=== PATIENT | female | born 1950 | race American Indian/Alaskan Native ===

== ENCOUNTER 2017-06-20 19:18 | Emergency (ER) | payer MEDICARE ==
[2017-06-20 22:00] LABS: Basophils % (Auto) 0.1 % (0.0-1.8); Eosinophils % (Auto) 0.2 % (0.0-4.3); Hematocrit 33.4 % (30.3-42.9); Hemoglobin 10.6 gm/dl (10.1-14.3); Lymphocytes % (Auto) 9.5 % (13.4-35.0); Mean Corpuscular HGB Conc 32 % (30-34); Mean Corpuscular Volume 77 fl (79-97); Monocytes # (Auto) 0.3 K/mm3 (0.0-0.8); Monocytes % (Auto) 2.7 % (0.0-7.3); Platelet Count 446 K/mm3 (140-440); Red Blood Count 4.34 M/mm3 (3.65-5.03)
[2017-06-20 22:02] LABS: Mean Corpuscular Hemoglobin 24 pg (28-32); Red Cell Distribution Width 21.2 % (13.2-15.2)
[2017-06-20 22:07] LABS: Bacteria,Urine 1+ /HPF (Negative); Bilirubin,Urine NEG (Negative); Blood,Urine NEG (Negative); Color,Urine Straw (Yellow); Mucus,Urine FEW /HPF; Nitrite,Urine NEG (Negative); Protein,Urine <15 mg/dL mg/dL (Negative); Urobilinogen,Urine < 2.0 mg/dL (<2.0); WBC,Urine < 1.0 /HPF (0.0-6.0)
[2017-06-20] MEDS ORDERED: MORPHINE IV ONE (22:11)
[2017-06-20 22:12] LABS: Creatine Kinase MB 2.8 ng/mL (0.0-4.0)
[2017-06-20 22:14] LABS: Alanine Aminotransferase 13 units/L (7-56); BUN/Creatinine Ratio 33; Blood Urea Nitrogen 13 mg/dL (7-17); Hemolysis Index 8
--- NOTE | 2017-06-20 22:16 | Emergency Department Report ---
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 THE INCONTINENCE IS NOT NEW AND SHE HAD THE SAME INCONTINENCE OF URINE WHEN SHE HAD THE STROKE. SHE WAS PUT ON MEDICAL OXYBUTYNIN A YEAR AGO BY DR ALMANZA FOR INCONTINENCE. SHE IS CRYING TODAY BECAUSE SHE HAS TO WEAR DIAPERS AGAIN. PT FELL 6 DAYS AGO WHEN SHE WAS ATTEMPTING TO STAND AND STRENGTHEN HER RIGHT LEG THAT SHE CANNOT MOVE. AFTER EACH FALL, SHE GOT UP AND TRIED REPEATEDLY TO STAND AND MOVE THAT PARALYZED RIGHT LEG MD Complaint: hip injury (BILATERAL), thigh injury (LEFT), fall -: Sudden, days(s) (6) Injury: Hip: Right, Left, Thigh: Left Type of Injury: other (COLLAPSE TO THE FLOOR) Worsens With: weight bearing, movement Context: fall, direct blow Associated Symptoms: unable to bear weight - Related Data Home Medications Medication Instructions Recorded Confirmed Last Taken Metformin HCl [Fortamet ER] 1,000 mg PO DAILY 02/10/16 02/10/16 1 Day Ago ~02/09/16 1000 Pregabalin [Lyrica] 50 mg PO DAILY 02/10/16 02/10/16 1 Day Ago ~02/09/16 50 amLODIPine [Norvasc] 5 mg PO DAILY 02/10/16 02/10/16 1 Day Ago ~02/09/16 5 predniSONE [Deltasone] 5 mg PO DAILY 02/10/16 02/10/16 1 Day Ago ~02/09/16 5 traMADol [Ultram] 50 mg PO TID 02/10/16 02/10/16 1 Day Ago ~02/09/16 50 Previous Rx's Medication Instructions Recorded Last Taken Type Clopidogrel [Plavix] 75 mg PO QDAY #30 tablet 02/11/16 Unknown Rx Oxycodone HCl/Acetaminophen 7.5 mg PO Q6HR PRN #14 tablet 06/21/17 Unknown Rx [Percocet 7.5/325 mg] Allergies Allergy/AdvReac Type Severity Reaction Status Date / Time Penicillins Allergy Rash Verified 11/25/14 10:02 Sulfa (Sulfonamide Allergy Rash Verified 11/25/14 10:02 Antibiotics) ED Review of Systems ROS: Stated complaint: LOWER ABD PAIN Other details as noted in HPI Constitutional: denies: chills, fever Eyes: denies: eye pain, eye discharge, vision change ENT: denies: ear pain, throat pain Respiratory: denies: cough, shortness of breath, wheezing Cardiovascular: denies: chest pain, palpitations Endocrine: no symptoms reported Gastrointestinal: denies: abdominal pain, nausea, diarrhea Genitourinary: denies: urgency, dysuria, discharge Musculoskeletal: myalgia. denies: joint swelling Skin: denies: rash, lesions Neurological: denies: headache, weakness, paresthesias Psychiatric: denies: anxiety, depression Hematological/Lymphatic: denies: easy bleeding, easy bruising ED Past Medical Hx - Past Medical History Previous Medical History?: Yes Hx Hypertension: Yes Hx CVA: Yes (right side deficit,URINARY INCONTINENCE) Hx Diabetes: Yes Hx Arthritis: Yes - Surgical History Past Surgical History?: Yes Additional Surgical History: back surgery - Social History Smoking Status: Never Smoker Substance Use Type: None - Medications Home Medications: Home Medications Medication Instructions Recorded Confirmed Last Taken Type Metformin HCl [Fortamet ER] 1,000 mg PO DAILY 02/10/16 02/10/16 1 Day Ago History ~02/09/16 1000 Pregabalin [Lyrica] 50 mg PO DAILY 02/10/16 02/10/16 1 Day Ago History ~02/09/16 50 amLODIPine [Norvasc] 5 mg PO DAILY 02/10/16 02/10/16 1 Day Ago History ~02/09/16 5 predniSONE [Deltasone] 5 mg PO DAILY 02/10/16 02/10/16 1 Day Ago History ~02/09/16 5 traMADol [Ultram] 50 mg PO TID 02/10/16 02/10/16 1 Day Ago History ~02/09/16 50 Clopidogrel [Plavix] 75 mg PO QDAY #30 tablet 02/11/16 Unknown Rx Oxycodone HCl/Acetaminophen 7.5 mg PO Q6HR PRN #14 tablet 06/21/17 Unknown Rx [Percocet 7.5/325 mg] ED Physical Exam - General Limitations: Physical Limitation General appearance: alert, in distress (FROM PAIN) - Head Head exam: Present: atraumatic, normocephalic - Eye Eye exam: Present: normal appearance, EOMI - ENT ENT exam: Present: mucous membranes moist - Neck Neck exam: Present: normal inspection, full ROM - Respiratory Respiratory exam: Present: normal lung sounds bilaterally. Absent: respiratory distress, wheezes, rales - Cardiovascular Cardiovascular Exam: Present: regular rate, normal rhythm. Absent: systolic murmur, diastolic murmur, rubs, gallop - GI/Abdominal GI/Abdominal exam: Present: soft, distended, tenderness, normal bowel sounds, other (INNER THIGH,HIP) - Rectal Rectal exam: Present: deferred - Extremities Exam Extremities exam: Present: normal inspection, other (RIGHT LEG PARALYZED, LEFT MOBILE , TENDER POSTERIOR LEFT THIGH, BILATER HIP IN INGUINAL CREASE TENDERNESS) - Back Exam Back exam: Present: normal inspection - Neurological Exam Neurological exam: Present: alert, oriented X3, CN II-XII intact - Psychiatric Psychiatric exam: Present: normal affect, normal mood - Skin Skin exam: Present: warm, dry, intact, normal color. Absent: rash ED Course Vital Signs 06/20/17 06/20/17 06/20/17 20:24 20:25 20:26 Temperature Pulse Rate 98 H 77 102 H Respiratory 17 16 16 Rate Blood Pressure O2 Sat by Pulse 100 99 Oximetry 06/20/17 06/20/17 06/20/17 20:27 20:28 20:30 Temperature Pulse Rate 107 H 108 H 113 H Respiratory 16 13 21 Rate Blood Pressure 140/79 140/79 140/79 O2 Sat by Pulse 100 100 100 Oximetry 06/20/17 06/20/17 06/20/17 20:31 20:32 20:34 Temperature 98.9 F Pulse Rate 103 H 116 H 110 H Respiratory 17 14 14 Rate Blood Pressure 147/70 147/70 147/70 O2 Sat by Pulse 99 100 100 Oximetry 06/20/17 06/20/17 06/20/17 20:36 20:38 20:40 Temperature Pulse Rate 106 H 95 H 101 H Respiratory 19 18 17 Rate Blood Pressure 147/70 147/70 147/70 O2 Sat by Pulse 99 99 99 Oximetry 06/20/17 06/20/17 06/20/17 20:42 20:44 20:45 Temperature Pulse Rate 101 H 96 H 103 H Respiratory 19 19 19 Rate Blood Pressure 147/70 147/70 133/66 O2 Sat by Pulse 98 99 99 Oximetry 06/20/17 06/20/17 06/20/17 20:46 20:48 20:50 Temperature Pulse Rate 107 H 99 H 94 H Respiratory 18 18 16 Rate Blood Pressure 133/66 133/66 133/66 O2 Sat by Pulse 98 99 99 Oximetry 06/20/17 06/20/17 06/20/17 20:52 20:54 20:56 Temperature Pulse Rate 94 H 96 H 95 H Respiratory 16 15 19 Rate Blood Pressure 133/66 133/66 133/66 O2 Sat by Pulse 99 98 99 Oximetry 06/20/17 06/20/17 06/20/17 20:58 21:00 21:02 Temperature Pulse Rate 93 H 100 H 116 H Respiratory 18 16 21 Rate Blood Pressure 133/66 133/66 142/72 O2 Sat by Pulse 100 99 100 Oximetry 06/20/17 06/20/17 06/20/17 21:04 21:08 21:10 Temperature Pulse Rate 111 H 107 H 105 H Respiratory 25 H 17 17 Rate Blood Pressure 142/72 142/72 142/72 O2 Sat by Pulse 99 Oximetry 06/20/17 06/20/17 06/20/17 21:12 21:14 21:15 Temperature Pulse Rate 94 H 89 97 H Respiratory 14 21 19 Rate Blood Pressure 142/72 142/72 142/70 O2 Sat by Pulse 99 99 99 Oximetry - Reevaluation(s) Reevaluation #1: 06/21/17 02:LANA NEUROLOGIST DR CHAVEZ WHO THINK THIS IS PROBABLY OVERFLOW INCONTINENCE AND NOT NEW SINCE SHE HAS HAD THIS IN THE PAST. DR MIRYAM SCHWARTZ AND FEEL THIS IS NOT CAUDA EQUINA SYNDROME BECUSE PT STILL MOVES THE LEFT LEG BEFORE HER FALL 6 DAYS AGO AND NOW NEW NUMBNESS AND RUTH E INCONTINENCE IN THE PAST ED Lower Extremity MDM - Lab Data Result diagrams: 06/20/17 21:36 06/20/17 21:36 - Medical Decision Making pt reexamined and right leg paralyzed since the cva 2001 and incontinence with diaper use in the past. pt on oxybutinin for incntinence of urine. thisis not new. i - Differential Diagnosis CAUDA EQUINA SYNDROME, OVERACTIVE BLADDER, ARTHRITIS Critical care attestation.: If time is entered above; I have spent that time in minutes in the direct care of this critically ill patient, excluding procedure time. ED Disposition Clinical Impression: Overactive bladder Acute hip pain Qualifiers: Laterality: unspecified laterality Qualified Code(s): M25.559 - Pain in unspecified hip Leg pain Qualifiers: Laterality: left Qualified Code(s): M79.605 - Pain in left leg Osteoarthritis of lumbar spine Qualifiers: Spinal osteoarthritis complication: unspecified spinal osteoarthritis Qualified Code(s): M47.816 - Spondylosis without myelopathy or radiculopathy, lumbar region Disposition: TO HOME OR SELFCARE Is pt being admited?: No Does the pt Need Aspirin: No Condition: Stable Instructions: Abdominal Pain (ED), Arthralgia (ED), Osteoarthritis (ED), Overactive Bladder (GEN) Additional Instructions: please see a urologist about your bladder or your doctor in 2 days. return to the er for any worsening symptoms. Prescriptions: Oxycodone HCl/Acetaminophen [Percocet 7.5/325 mg] 7.5 mg PO Q6HR PRN #14 tablet PRN Reason: Pain Referrals: RACHELLE BATES MD [Primary Care Provider] - 3-5 Days Time of Disposition: 02:25
--- NOTE | 2017-06-20 23:24 | XRay Report ---
FINAL REPORT PROCEDURE: Right and left femurs. TECHNIQUE: AP and lateral views of each femur. HISTORY: Leg pain post fall. COMPARISON: No prior studies are available for comparison. FINDINGS: Right femur: The bones appear intact without fracture. The hip joint appears satisfactory. There is mild narrowing of the knee joint. There is small osteophyte formation. The soft tissues are unremarkable. There is some chondrocalcinosis in the knee joint. Left femur: The bones appear intact without fracture. There is mild narrowing of the knee joint. There is osteophyte formation arising laterally from the distal femur and proximal tibia. There is chondrocalcinosis present. The soft tissues are unremarkable. IMPRESSION: No evidence of fracture. Mild osteoarthritis bilaterally as described.
--- NOTE | 2017-06-20 23:43 | Cat Scan Report ---
FINAL REPORT PROCEDURE: CT pelvis with contrast. TECHNIQUE: Computerized axial tomography of the pelvis was performed following the IV injection of iodinated nonionic contrast. HISTORY: Pelvic pain. COMPARISON: No prior studies are available for comparison. TECHNICAL QUALITY: Satisfactory. FINDINGS: The unopacified gastrointestinal tract appears normal as far as visualized. The vascular structures enhance normally. The bladder is unremarkable. The uterus has been removed. The regional skeleton is unremarkable. There is posterior fusion hardware visible at L5. The patient appears to have had laminectomies done at L4 and L5. IMPRESSION: No significant abnormality.
--- NOTE | 2017-06-20 23:57 | Cat Scan Report ---
FINAL REPORT PROCEDURE: CT lumbar spine with contrast. TECHNIQUE: Computerized axial tomography of the lumbar spine was performed from T12 to the sacrum following the IV injection of iodinated nonionic contrast. HISTORY: Back pain. COMPARISON: No prior studies are available for comparison. FINDINGS: The lumbar vertebrae have normal height. There are no fractures identified. There is severe disc space narrowing at T12-L1. There is mild retrolisthesis measured at approximately 3.8 millimeters. There is severe narrowing of the neural foramina bilaterally. There is severe disc space narrowing at L1-2. There is mild retrolisthesis measured at approximately 3.0 millimeters. There is moderate osteoarthritis involving the facet joints. There is a small osteophyte or bone fragment in the left side of the spinal canal. This is best seen on the sagittal images. There is moderate narrowing of the neural foramina bilaterally. There is an exaggerated lordosis at the L2-3 level. The disc space appears widened anteriorly. There is severe osteoarthritis involving the facet joints. There is a large osteophyte posteriorly that narrows the spinal canal. This is also best seen on the sagittal images. There is severe narrowing of the right neural foramen. L3 through L5 are fused. There is posterior internal fixation hardware present. The disc spaces are fused. There is mild spondylolisthesis at L3-4 measured at approximately 1.8 millimeters. The patient has had bilateral laminectomies done at L4 and L5. There is severe osteoarthritis involving the facet joints at L4-5 and L5-S1. IMPRESSION: Previous surgery and multilevel degenerative disease as described.
[2017-06-21] MEDS ORDERED: MORPHINE IV ONE (00:36)
[2017-06-21 03:25] VITALS: BP 154/73
== END 2017-06-21 04:21 | disposition home or self-care (01) ==
LOC: ED 19:18
DX: M47.816 Spondylosis without myelopathy or radiculopathy, lumbar region (principal); M79.605 Pain in left leg; M25.559 Pain in unspecified hip; N32.81 Overactive bladder; I10 Essential (primary) hypertension; I63.9 Cerebral infarction, unspecified; E11.9 Type 2 diabetes mellitus without complications; Z88.0 Allergy status to penicillin; Z88.2 Allergy status to sulfonamides
CPT/HCPCS: 36415; 72132; 72193; 73552; 80053; 81001; 82550; 82553; 84484; 85025; 96374; 96376; 99285; J2270; Q9967

== ENCOUNTER 2018-09-03 18:23 | Emergency (ER) | payer MEDICARE, OTHER ==
[2018-09-03 18:49] VITALS: BP 152/61
--- NOTE | 2018-09-03 18:51 | Emergency Department Report ---
Chief Complaint: Pain General Stated Complaint: PAIN ALL OVER/EXTREME Time Seen by Provider: 09/03/18 18:46 - HPI History of Present Illness: generalized body aches having dysuria Nausea, one episode vomiting no fall, injury, trauma no fever pt walks with walker. hx of DM, HTN, hx of chronic pain MSE screening note: Focused history and physical exam performed. Due to findings the following was ordered: ED Disposition for MSE Condition: Stable
--- NOTE | 2018-09-03 21:08 | Emergency Department Report ---
ED General Adult HPI - General Chief complaint: Pain General Stated complaint: PAIN ALL OVER/EXTREME Time Seen by Provider: 09/03/18 18:46 Source: patient Mode of arrival: Ambulatory Limitations: No Limitations - History of Present Illness Initial comments: This is a 68-year-old -[place] female who presents with pain to left shoulder, left hip, abdominal pain, and dysuria for 3 days. Patient reports pain is chronic pain. Has flared over the past 3 days. Patient states she used to see pain management but released after pain was under control. Patient has a walker at bedside to aid with ambulation. She also complains of some pelvic pain that is worse with urination and dysuria. Patient states she is currently taking ibuprofen 800 mg with no improvement of symptoms. She denies urinary frequency, urgency, vaginal discharge, vaginal bleeding, back pain, nausea, vomiting, and chest pain. Onset/Timin -: days(s) Location: abdomen, upper extremity (left shoulder), lower extremity ( and left knee) Radiation: non-radiation Severity scale (0 -10): 6 Quality: burning, aching Consistency: intermittent Improves with: none Worsens with: movement Associated Symptoms: other (dysuria). denies: confusion, chest pain, cough, diaphoresis, fever/chills, headaches, loss of appetite, malaise, nausea/vomiting, rash, seizure, shortness of breath, syncope, weakness Treatments Prior to Arrival: NSAID - Related Data Home Medications Medication Instructions Recorded Confirmed Last Taken Metformin HCl [Fortamet ER] 1,000 mg PO DAILY 02/10/16 02/10/16 1 Day Ago ~02/09/16 1000 Pregabalin [Lyrica] 50 mg PO DAILY 02/10/16 02/10/16 1 Day Ago ~02/09/16 50 amLODIPine [Norvasc] 5 mg PO DAILY 02/10/16 02/10/16 1 Day Ago ~02/09/16 5 predniSONE [Deltasone] 5 mg PO DAILY 02/10/16 02/10/16 1 Day Ago ~02/09/16 5 traMADol [Ultram] 50 mg PO TID 02/10/16 02/10/16 1 Day Ago ~02/09/16 50 Previous Rx's Medication Instructions Recorded Last Taken Type Clopidogrel [Plavix] 75 mg PO QDAY #30 tablet 02/11/16 Unknown Rx Oxycodone HCl/Acetaminophen 7.5 mg PO Q6HR PRN #14 tablet 06/21/17 Unknown Rx [Percocet 7.5/325 mg] Diclofenac Sodium 50 mg PO TID PRN #15 tablet. 09/03/18 Unknown Rx Nitrofurantoin Macrocrysta(Nf) 100 mg PO BID #10 capsule 09/03/18 Unknown Rx [Macrodantin CAP] traMADol [Ultram 50 MG tab] 50 mg PO Q6HR PRN #12 tablet 09/03/18 Unknown Rx Allergies Allergy/AdvReac Type Severity Reaction Status Date / Time Penicillins Allergy Rash Verified 11/25/14 10:02 Sulfa (Sulfonamide Allergy Rash Verified 11/25/14 10:02 Antibiotics) ED Review of Systems ROS: Stated complaint: PAIN ALL OVER/EXTREME Other details as noted in HPI Constitutional: denies: chills, fever Respiratory: denies: cough, shortness of breath, wheezing Cardiovascular: denies: chest pain, palpitations Gastrointestinal: abdominal pain. denies: nausea, diarrhea Genitourinary: dysuria. denies: urgency, discharge Musculoskeletal: arthralgia (left shoulder and left knee pain). denies: back pain, joint swelling Skin: denies: rash, lesions Neurological: denies: headache, weakness, paresthesias Psychiatric: denies: anxiety, depression ED Past Medical Hx - Past Medical History Hx Hypertension: Yes Hx CVA: Yes (right side deficit,URINARY INCONTINENCE) Hx Diabetes: Yes Hx Arthritis: Yes - Surgical History Past Surgical History?: Yes Additional Surgical History: back surgery - Social History Smoking Status: Never Smoker - Medications Home Medications: Home Medications Medication Instructions Recorded Confirmed Last Taken Type Metformin HCl [Fortamet ER] 1,000 mg PO DAILY 02/10/16 02/10/16 1 Day Ago History ~02/09/16 1000 Pregabalin [Lyrica] 50 mg PO DAILY 02/10/16 02/10/16 1 Day Ago History ~02/09/16 50 amLODIPine [Norvasc] 5 mg PO DAILY 02/10/16 02/10/16 1 Day Ago History ~02/09/16 5 predniSONE [Deltasone] 5 mg PO DAILY 02/10/16 02/10/16 1 Day Ago History ~02/09/16 5 traMADol [Ultram] 50 mg PO TID 02/10/16 02/10/16 1 Day Ago History ~02/09/16 50 Clopidogrel [Plavix] 75 mg PO QDAY #30 tablet 02/11/16 Unknown Rx Oxycodone HCl/Acetaminophen 7.5 mg PO Q6HR PRN #14 tablet 06/21/17 Unknown Rx [Percocet 7.5/325 mg] Diclofenac Sodium 50 mg PO TID PRN #15 tablet. 09/03/18 Unknown Rx Nitrofurantoin Macrocrysta(Nf) 100 mg PO BID #10 capsule 09/03/18 Unknown Rx [Macrodantin CAP] traMADol [Ultram 50 MG tab] 50 mg PO Q6HR PRN #12 tablet 09/03/18 Unknown Rx ED Physical Exam - General Limitations: No Limitations General appearance: alert, in no apparent distress - Respiratory Respiratory exam: Present: normal lung sounds bilaterally. Absent: respiratory distress - Cardiovascular Cardiovascular Exam: Present: regular rate, normal rhythm. Absent: systolic murmur, diastolic murmur, rubs, gallop - GI/Abdominal GI/Abdominal exam: Present: soft, normal bowel sounds - Expanded Upper Extremity Exam Left Shoulder Exam: Present: normal inspection, full ROM (painful range of motion), crepidus. Absent: tenderness, swelling, abrasion, laceration, ecchymosis, defo rmity, dislocation, erythema, tenderness over AC joint Upper Arm exam: Present: normal inspection, full ROM Elbow exam: Present: normal inspection, full ROM Forearm Wrist exam: Present: normal inspection, full ROM Hand Wrist exam: Present: normal inspection, full ROM Neuro motor exam: Present: wrist extension intact, thumb opposition intact, thumb IP flexion intact, thumb adduction intact, fingers 2-5 abduction intact Neurosensory exam: Present: radial nerve intact, ulnar nerve intact, median nerve intact Vascular: Present: normal capillary refill, radial pulse (+2) - Expanded Lower Extremity Exam Left Hip exam: Present: full ROM (painful range of motion). Absent: tenderness, swelling, abrasion, laceration, ecchymosis, deformity, crepidus, dislocation, erythema, external rotation, internal rotation, shortening, pelvic stability Upper Leg exam: Present: normal inspection, full ROM Knee exam: Present: normal inspection, full ROM Lower Leg exam: Present: normal inspection, full ROM Ankle exam: Present: normal inspection, full ROM Foot/Toe exam: Present: normal inspection, full ROM Neuro vascular tendon exam: Present: no vascular compromise Gait: Positive: observed and limited by pain - Back Exam Back exam: Present: normal inspection - Neurological Exam Neurological exam: Present: alert, oriented X3 - Psychiatric Psychiatric exam: Present: normal affect, normal mood ED Course Vital Signs 09/03/18 18:47 Temperature 98.2 F Pulse Rate 72 Respiratory 18 Rate Blood Pressure 152/61 O2 Sat by Pulse 100 Oximetry ED Medical Decision Making - Lab Data Lab Results 09/03/18 Range/Units Unknown Urine Color Yellow (Yellow) Urine Turbidity Slightly-cloudy (Clear) Urine pH 5.0 (5.0-7.0) Ur Specific [place] 1.014 (1.003-1.030) Urine Protein 30 mg/dl (Negative) mg/dL Urine Glucose (UA) Neg (Negative) mg/dL Urine Ketones Neg (Negative) mg/dL Urine Blood Sm (Negative) Urine Nitrite Neg (Negative) Urine Bilirubin Neg (Negative) Urine Urobilinogen < 2.0 (<2.0) mg/dL Ur Leukocyte Esterase Mod (Negative) Urine WBC (Auto) 19.0 H (0.0-6.0) /HPF Urine RBC (Auto) 13.0 (0.0-6.0) /HPF U Epithel Cells (Auto) 3.0 (0-13.0) /HPF Urine Mucus 1+ /HPF - EKG Data -: No EKG Interpreted by Me (EKG interpreted by attending) EKG shows normal: sinus rhythm Rate: normal - Medical Decision Making Patient was examined by me. Vitals are normal and patient is in no acute distress. History of osteoarthritis, diabetes, and hypertension. Obtained a urinalysis and EKG. Urinalysis positive for: Acute cystitis. Patient has acute on chronic pain. Patient informed of results. Start nitrofurantoin, diclofenac, and tramadol. Plan discussed with patient to discharge home and treat outpatient. She agrees with ER plan. Patient discharged home in stable condition. Follow up with PCP in 2-3 days. Critical care attestation.: If time is entered above; I have spent that time in minutes in the direct care of this critically ill patient, excluding procedure time. ED Disposition Clinical Impression: Dysuria, Pelvic pain in female Acute cystitis Qualifiers: Hematuria presence: without hematuria Qualified Code(s): N30.00 - Acute cystitis without hematuria Osteoarthritis Qualifiers: Osteoarthritis location: multiple joints Osteoarthritis type: primary Qualified Code(s): M15.0 - Primary generalized (osteo)arthritis Disposition: TO HOME OR SELFCARE Is pt being admited?: No Does the pt Need Aspirin: No Condition: Stable Instructions: Osteoarthritis (ED), Self-Care Measures with a Chronic Disease (ED), Urinary Tract Infection in Women (ED) Additional Instructions: Increase fluid intake to 1L to 2L daily. Complete full course of antibiotics as prescribed. Avoid drinking alcohol while taking antibiotics and for 24 hours after completion. Follow up with primary care provider in 2-3 days. Prescriptions: Diclofenac Sodium 50 mg PO TID PRN #15 tablet. PRN Reason: Pain , Severe (7-10) Nitrofurantoin Macrocrysta(Nf) [Macrodantin CAP] 100 mg PO BID #10 capsule traMADol [Ultram 50 MG tab] 50 mg PO Q6HR PRN #12 tablet PRN Reason: Pain Referrals: RAMANA ALMANZA JR, MD [Primary Care Provider] - 3-5 Days MEL WITT MD [Staff Physician] - 3-5 Days Time of Disposition: 23:46
[2018-09-03] MEDS ORDERED: TORADOL IM ONE (21:58)
[2018-09-03 22:29] LABS: Bilirubin,Urine NEG (Negative); Blood,Urine SM (Negative); Color,Urine Yellow (Yellow); Mucus,Urine 1+ /HPF; Urobilinogen,Urine < 2.0 mg/dL (<2.0)
== END 2018-09-03 23:59 | disposition home or self-care (01) ==
LOC: ED 18:23
DX: N30.00 Acute cystitis without hematuria (principal); M15.0 Primary generalized (osteo)arthritis; I10 Essential (primary) hypertension; E11.9 Type 2 diabetes mellitus without complications; M19.90 Unspecified osteoarthritis, unspecified site; Z86.73 Personal history of transient ischemic attack (TIA), and cerebral infarction without residual deficits; Z88.2 Allergy status to sulfonamides; Z88.0 Allergy status to penicillin
CPT/HCPCS: 81001; 93005; 93010; 96372; 99283; J1885

== ENCOUNTER 2018-11-23 17:09 | Emergency (ER) | payer MEDICARE ==
[2018-11-23] MEDS ORDERED: NACL 0.9% 500 ML 500 ML IV ONE (17:30)
[2018-11-23 18:03] LABS: Basophils # (Auto) 0.2 K/mm3 (0.0-0.1); Basophils % (Auto) 1.5 % (0.0-1.8); Eosinophils # (Auto) 0.7 K/mm3 (0.0-0.4); Eosinophils % (Auto) 6.7 % (0.0-4.3); Hematocrit 34.1 % (30.3-42.9); Hemoglobin 10.6 gm/dl (10.1-14.3); Lymphocytes % (Auto) 19.3 % (13.4-35.0); Mean Corpuscular HGB Conc 31 % (30-34); Mean Corpuscular Volume 84 fl (79-97); Monocytes # (Auto) 0.5 K/mm3 (0.0-0.8); Platelet Count 362 K/mm3 (140-440); Red Blood Count 4.07 M/mm3 (3.65-5.03); Red Cell Distribution Width 16.9 % (13.2-15.2)
[2018-11-23 18:06] LABS: INR 1.03 (0.87-1.13)
[2018-11-23 18:18] LABS: Alanine Aminotransferase 10 units/L (7-56); Albumin 3.1 g/dL (3.9-5); BUN/Creatinine Ratio 30; Blood Urea Nitrogen 9 mg/dL (7-17); Calcium 8.7 mg/dL (8.4-10.2); Hemolysis Index 61
[2018-11-23] MEDS ORDERED: VANCOMYCIN/NS 1 GM/250 ML 1 GM/250 ML BAG IV ONE (18:19)
[2018-11-23] MEDS ORDERED: TORADOL IV ONE (19:09)
[2018-11-23] MEDS ORDERED: VANCOMYCIN 1,500 MG in NACL 0.9% 500 ML 500 ML IV ONE (19:30)
--- NOTE | 2018-11-23 20:00 | XRay Report ---
PROCEDURE: XR CHEST 1V AP TECHNIQUE: Chest radiograph single view. HISTORY: possible Sepsis COMPARISONS: None . FINDINGS: Heart: Normal. Mediastinum/Vessels: Normal. Lungs/Pleural space: No infiltrate, effusion, or pneumothorax is seen. Bony thorax: No acute osseous abnormality. Life support devices: None. IMPRESSION: No radiographic evidence of acute cardiopulmonary abnormality. This document is electronically signed by Yajaira France MD., November 23 2018 08:58:48 PM ET
--- NOTE | 2018-11-23 20:21 | Emergency Department Report ---
HPI - General Chief Complaint: Wound/Laceration Time Seen by Provider: 11/23/18 17:34 - HPI HPI: 68-year-old female presents to the emergency department via EMS from home with complaint of some pain and drainage to some surgical wounds that she has as well as to the right heel. The patient says that these wounds stem from a previous admission to another hospital where she was admitted for pneumonia. She has a past medical history of arthritis, CVA, diabetes, hypertension, depression, high cholesterol. Patient denies any fever. Cortney lowry's daughter noticed some brownish drainage coming from her backside. Her primary care physician is Dr. Ramana Almanza. They say that they have been trying to get a home healthcare wound nurse but this has not yet been set up by the primary care provider. She has not taken anything for her symptoms prior to arrival today. ED Past Medical Hx - Past Medical History Previous Medical History?: Yes Hx Hypertension: Yes Hx CVA: Yes (right side deficit,URINARY INCONTINENCE) Hx Diabetes: Yes Hx Arthritis: Yes Hx Psychiatric Treatment: Yes (depression) Additional medical history: high cholesterol - Surgical History Past Surgical History?: Yes Additional Surgical History: back surgery - Social History Smoking Status: Former Smoker Substance Use Type: None - Medications Home Medications: Home Medications Medication Instructions Recorded Confirmed Last Taken Type Metformin HCl [Fortamet ER] 1,000 mg PO DAILY 02/10/16 02/10/16 1 Day Ago History ~02/09/16 1000 Pregabalin [Lyrica] 50 mg PO DAILY 02/10/16 02/10/16 1 Day Ago History ~02/09/16 50 amLODIPine [Norvasc] 5 mg PO DAILY 02/10/16 02/10/16 1 Day Ago History ~02/09/16 5 predniSONE [Deltasone] 5 mg PO DAILY 02/10/16 02/10/16 1 Day Ago History ~02/09/16 5 traMADol [Ultram] 50 mg PO TID 02/10/16 02/10/16 1 Day Ago History ~02/09/16 50 Clopidogrel [Plavix] 75 mg PO QDAY #30 tablet 02/11/16 Unknown Rx Oxycodone HCl/Acetaminophen 7.5 mg PO Q6HR PRN #14 tablet 06/21/17 Unknown Rx [Percocet 7.5/325 mg] Diclofenac Sodium 50 mg PO TID PRN #15 tablet. 09/03/18 Unknown Rx Nitrofurantoin Macrocrysta(Nf) 100 mg PO BID #10 capsule 09/03/18 Unknown Rx [Macrodantin CAP] traMADol [Ultram 50 MG tab] 50 mg PO Q6HR PRN #12 tablet 09/03/18 Unknown Rx Clindamycin [Clindamycin CAP] 300 mg PO Q6H #28 capsule 11/23/18 Unknown Rx traMADol [Ultram 50 MG tab] 50 mg PO Q8H PRN #10 tablet 11/23/18 Unknown Rx ED Review of Systems ROS: Stated complaint: ULCERS Other details as noted in HPI Comment: All other systems reviewed and negative Constitutional: denies: chills, fever Eyes: denies: eye pain, vision change ENT: denies: ear pain, throat pain Respiratory: denies: cough, shortness of breath Cardiovascular: denies: chest pain, palpitations Gastrointestinal: denies: abdominal pain, vomiting Genitourinary: denies: dysuria, discharge Musculoskeletal: denies: back pain, arthralgia Skin: lesions. denies: pruritus Neurological: denies: headache, numbness Physical Exam - Physical Exam Vital Signs: Vital Signs 11/23/18 11/23/18 11/23/18 17:27 18:00 18:55 Temperature 98.9 F 98.7 F Pulse Rate 56 L Respiratory 14 Rate Blood Pressure 88/35 Blood Pressure 112/36 [Left] O2 Sat by Pulse 98 Oximetry 11/23/18 19:38 Temperature Pulse Rate Respiratory 20 Rate Blood Pressure Blood Pressure [Left] O2 Sat by Pulse Oximetry Physical Exam: GENERAL: The patient is well-developed well-nourished. HENT: Normocephalic. Atraumatic. Patient has moist mucous membranes. EYES: Extraocular motions are intact. Pupils equal reactive to light bilaterall y. NECK: Supple. Trachea is midline. CHEST/LUNGS: Clear to auscultation. There is no respiratory distress noted. HEART/CARDIOVASCULAR: Regular. There is no tachycardia. There is no murmur. ABDOMEN: Abdomen is soft, nontender. Patient has normal bowel sounds. There is no abdominal distention. SKIN: There is a stage II sacral decubitus ulcer. No current bleeding, weeping, drainage. No surrounding erythema. There is a stage II to 3 right heel pressure ulcer that also does not appear infected. NEURO: The patient is awake, alert, and oriented. The patient is cooperative. The patient has normal speech. MUSCULOSKELETAL: There is no tenderness or deformity. There is no evidence of acute injury. ED Course Vital Signs 11/23/18 11/23/18 11/23/18 17:27 18:00 18:55 Temperature 98.9 F 98.7 F Pulse Rate 56 L Respiratory 14 Rate Blood Pressure 88/35 Blood Pressure 112/36 [Left] O2 Sat by Pulse 98 Oximetry 11/23/18 19:38 Temperature Pulse Rate Respiratory 20 Rate Blood Pressure Blood Pressure [Left] O2 Sat by Pulse Oximetry ED Medical Decision Making - Lab Data Result diagrams: 11/23/18 17:43 11/23/18 17:43 - EKG Data -: EKG Interpreted by Me EKG shows normal: sinus rhythm, axis, intervals (prolonged IN interval), QRS c omplexes, ST-T waves Rate: bradycardia (52 bpm) - EKG Data When compared to previous EKG there are: previous EKG unavailable Interpretation: other (sinus thomas. low voltage. Prolonged IN interval) - Radiology Data Radiology results: image reviewed interpreted by me: Chest x-ray does not show any acute process. There are no pleural effusions, obvious pneumonia and there is no pneumothorax. - Medical Decision Making This patient presented with complaint of some pain and concern for drainage from her sacral decubitus ulcer and from her right heel where there is another pressure ulcer. At first the patient was considered a code sepsis, mostly because she had some borderline hypotension. However she received only 500 mL of IV fluid during her ED course and her blood pressure prior to discharge was systolic 130. I took a look at the areas of ulceration and she does appear to have stage II sacral tenderness ulcer and another one to the right heel there is no current erythema, bleeding, drainage. I do not feel that there was any imaging necessary to these areas of ulceration. It is not significantly tender to palpation but she says it nugent. The patient's vital signs are stable throughout her ED course including being afebrile. Patient's labs were mostly unremarkable including no leukocytosis, no lactic acidosis, but she did have a urinary tract infection. The patient will be placed on clindamycin for both her UTI and empirically for her ulcerations. The patient has been given a referral for the wound care clinic and says that they are working on getting some home health care wound assistance through the primary care physician, Dr. Almanza. As per their request, they have also been given some other referrals for new primary care providers in the area. The patient was given some Toradol for her discomfort and upon reevaluation she is feeling improved. They've been instructed to return to the emergency department if there is any change in her status including any development of fever, worsening or unbearable pain, visible purulent drainage, swelling, erythema, or if any acute distress. Both the patient and her daughter verbalized understanding and agreed to the plan. - Differential Diagnosis sepsis, cellulitis, decubitus ulcer, UTI Critical Care Time: No Critical care attestation.: If time is entered above; I have spent that time in minutes in the direct care of this critically ill patient, excluding procedure time. ED Disposition Clinical Impression: Sacral pain Sacral decubitus ulcer Qualifiers: Pressure injury stage: unspecified pressure injury stage Qualified Code(s): L89.159 - Pressure ulcer of sacral region, unspecified stage Ulcer of heel Qualifiers: Laterality: right Non-pressure ulcer stage: unspecified non-pressure ulcer stage Qualified Code(s): L97.419 - Non-pressure chronic ulcer of right heel and midfoot with unspecified severity Disposition: DC-01 TO HOME OR SELFCARE Is pt being admited?: No Condition: Stable Instructions: How to Prevent Pressure Ulcers (ED), Acute Wound Care (ED), Chronic Wound Care (ED), Pressure Ulcer (ED) Additional Instructions: Please follow-up with your primary care physician but, as requested, I am also giving you a referral for some local primary care physicians. I am also giving you a referral for the wound care clinic. Return to the emergency Department with any worsening of your symptoms including any development of fever, increased or unbearable pain, increased drainage, or any other signs or symptoms of infection. You have been prescribed a medication that is sedating and therefore should not be taken prior to driving, working, and responsible for children and in no way should be mixed with alcohol of any quantity. Prescriptions: Clindamycin [Clindamycin CAP] 300 mg PO Q6H #28 capsule traMADol [Ultram 50 MG tab] 50 mg PO Q8H PRN #10 tablet PRN Reason: Pain Referrals: RAMANA ALMANZA JR, MD [Staff Physician] - 3-5 Days LEANN EDWARDS MD [Staff Physician] - 3-5 Days TAJ ORTIZ MD [Staff Physician] - 3-5 Days [facility] [Outside] - 3-5 Days Time of Disposition: 20:23
[2018-11-23] MEDS ORDERED: NACL 0.9% 500 ML 500 ML IV SCH (21:00)
[2018-11-23 21:06] LABS: Bilirubin,Urine NEG (Negative); Blood,Urine NEG (Negative); Color,Urine Yellow (Yellow); Hyaline Casts,Urine 6 /LPF; Mucus,Urine FEW /HPF; Urobilinogen,Urine < 2.0 mg/dL (<2.0)
[2018-11-23] MEDS ORDERED: NACL 0.9% 1000 ML 1,000 ML ONE (21:17)
[2018-11-24 02:10] VITALS: BP 132/50
== END 2018-11-24 02:33 | disposition home or self-care (01) ==
LOC: ED 17:09
DX: L89.159 Pressure ulcer of sacral region, unspecified stage (principal); E11.621 Type 2 diabetes mellitus with foot ulcer; L97.419 Non-pressure chronic ulcer of right heel and midfoot with unspecified severity; I10 Essential (primary) hypertension; M19.90 Unspecified osteoarthritis, unspecified site; E78.00 Pure hypercholesterolemia, unspecified; Z87.891 Personal history of nicotine dependence; Z88.0 Allergy status to penicillin; Z88.2 Allergy status to sulfonamides
CPT/HCPCS: 36415; 71045; 80053; 81001; 82140; 82805; 82962; 85025; 85610; 87040; 87086; 93005; 93010; 96365; 96366; 96375; 99285; J1885; J3370; J7030; J7040

== ENCOUNTER 2019-03-17 11:34 | Emergency (ER) | payer MEDICARE ==
[2019-03-17 13:15] LABS: Bilirubin,Urine NEG (Negative); Blood,Urine LG (Negative); Color,Urine Yellow (Yellow); Mucus,Urine 2+ /HPF; Urobilinogen,Urine < 2.0 mg/dL (<2.0)
[2019-03-17 13:16] LABS: Protein,Urine >2000 mg dL mg/dL (Negative); RBC,Urine > 182.0 /HPF (0.0-6.0); WBC,Urine > 182.0 /HPF (0.0-6.0)
[2019-03-17 13:34] LABS: Hematocrit 31.9 % (30.3-42.9); Hemoglobin 10.2 gm/dl (10.1-14.3); Mean Corpuscular HGB Conc 32 % (30-34); Mean Corpuscular Volume 78 fl (79-97); Platelet Count 272 K/mm3 (140-440); Red Blood Count 4.09 M/mm3 (3.65-5.03); Red Cell Distribution Width 16.7 % (13.2-15.2)
[2019-03-17 14:01] LABS: Alanine Aminotransferase 5 units/L (7-56); Albumin 3.5 g/dL (3.9-5); BUN/Creatinine Ratio 27; Blood Urea Nitrogen 8 mg/dL (7-17); Calcium 8.9 mg/dL (8.4-10.2); Hemolysis Index 3
[2019-03-17] MEDS ORDERED: POTASSIUM CHLORIDE ER 20 MEQ TAB PO ONE (14:16)
[2019-03-17 15:23] LABS: Total Cells Counted 100
[2019-03-17 15:24] LABS: Hypochromasia 1+
[2019-03-17] MEDS ORDERED: MORPHINE 4 MG/1 ML INJ IM ONE (16:22)
[2019-03-17] MEDS ORDERED: ONDANSETRON 4 MG/2 ML INJ IM ONE (16:22)
--- NOTE | 2019-03-17 16:27 | Emergency Department Report ---
ED General Adult HPI - General Chief complaint: Skin Rash Stated complaint: POSS SHINGLES/MALAISE Time Seen by Provider: 03/17/19 16:18 Source: EMS Mode of arrival: Stretcher Limitations: Physical Limitation - History of Present Illness Initial comments: Patient is 68 years old female with history of CVA, hypertension, diabetes and depression. Patient put to the emergency room by her daughter for evaluation of the left thigh rash that started 3 days ago. Patient stated that started as vesicles and it was a painful. Patient also stated that she had history of nausea and vomiting 3 days ago but now she is better. Patient denied any fever or chills. No chest pain or shortness of breath or abdominal pain. She stated that she was treated with Levaquin for UTI 2 weeks ago. - Related Data Home Medications Medication Instructions Recorded Confirmed Last Taken Metformin HCl [Fortamet ER] 1,000 mg PO DAILY 02/10/16 02/10/16 1 Day Ago ~02/09/16 1000 Pregabalin [Lyrica] 50 mg PO DAILY 02/10/16 02/10/16 1 Day Ago ~02/09/16 50 amLODIPine [Norvasc] 5 mg PO DAILY 02/10/16 02/10/16 1 Day Ago ~02/09/16 5 predniSONE [Deltasone] 5 mg PO DAILY 02/10/16 02/10/16 1 Day Ago ~02/09/16 5 traMADol [Ultram] 50 mg PO TID 02/10/16 02/10/16 1 Day Ago ~02/09/16 50 Previous Rx's Medication Instructions Recorded Last Taken Type Clopidogrel [Plavix] 75 mg PO QDAY #30 tablet 02/11/16 Unknown Rx Oxycodone HCl/Acetaminophen 7.5 mg PO Q6HR PRN #14 tablet 06/21/17 Unknown Rx [Percocet 7.5/325 mg] Diclofenac Sodium 50 mg PO TID PRN #15 tablet. 09/03/18 Unknown Rx Nitrofurantoin Macrocrysta(Nf) 100 mg PO BID #10 capsule 09/03/18 Unknown Rx [Macrodantin CAP] traMADol [Ultram 50 MG tab] 50 mg PO Q6HR PRN #12 tablet 09/03/18 Unknown Rx Clindamycin [Clindamycin CAP] 300 mg PO Q6H #28 capsule 11/23/18 Unknown Rx traMADol [Ultram 50 MG tab] 50 mg PO Q8H PRN #10 tablet 11/23/18 Unknown Rx Allergies Allergy/AdvReac Type Severity Reaction Status Date / Time Penicillins Allergy Rash Verified 11/25/14 10:02 Sulfa (Sulfonamide Allergy Rash Verified 11/25/14 10:02 Antibiotics) ED Review of Systems ROS: Stated complaint: POSS SHINGLES/MALAISE Other details as noted in HPI Comment: All other systems reviewed and negative Constitutional: denies: chills, fever Respiratory: denies: cough, shortness of breath, SOB with exertion Cardiovascular: denies: chest pain, palpitations Gastrointestinal: denies: abdominal pain, nausea, vomiting, diarrhea, constipation, hematemesis, hematochezia Musculoskeletal: denies: back pain Skin: rash, lesions ED Past Medical Hx - Past Medical History Previous Medical History?: Yes Hx Hypertension: Yes Hx CVA: Yes (right side deficit,URINARY INCONTINENCE) Hx Diabetes: Yes Hx Arthritis: Yes Hx Psychiatric Treatment: Yes (depression) Additional medical history: high cholesterol - Surgical History Past Surgical History?: Yes Additional Surgical History: back surgery - Social History Smoking Status: Former Smoker Substance Use Type: None - Medications Home Medications: Home Medications Medication Instructions Recorded Confirmed Last Taken Type Metformin HCl [Fortamet ER] 1,000 mg PO DAILY 02/10/16 02/10/16 1 Day Ago History ~02/09/16 1000 Pregabalin [Lyrica] 50 mg PO DAILY 02/10/16 02/10/16 1 Day Ago History ~02/09/16 50 amLODIPine [Norvasc] 5 mg PO DAILY 02/10/16 02/10/16 1 Day Ago History ~02/09/16 5 predniSONE [Deltasone] 5 mg PO DAILY 02/10/16 02/10/16 1 Day Ago History ~02/09/16 5 traMADol [Ultram] 50 mg PO TID 02/10/16 02/10/16 1 Day Ago History ~02/09/16 50 Clopidogrel [Plavix] 75 mg PO QDAY #30 tablet 02/11/16 Unknown Rx Oxycodone HCl/Acetaminophen 7.5 mg PO Q6HR PRN #14 tablet 06/21/17 Unknown Rx [Percocet 7.5/325 mg] Diclofenac Sodium 50 mg PO TID PRN #15 tablet. 09/03/18 Unknown Rx Nitrofurantoin Macrocrysta(Nf) 100 mg PO BID #10 capsule 09/03/18 Unknown Rx [Macrodantin CAP] traMADol [Ultram 50 MG tab] 50 mg PO Q6HR PRN #12 tablet 09/03/18 Unknown Rx Clindamycin [Clindamycin CAP] 300 mg PO Q6H #28 capsule 11/23/18 Unknown Rx traMADol [Ultram 50 MG tab] 50 mg PO Q8H PRN #10 tablet 11/23/18 Unknown Rx ED Physical Exam - General Limitations: Physical Limitation General appearance: alert, in no apparent distress - Head Head exam: Present: atraumatic, normocephalic, normal inspection - Eye Eye exam: Present: normal appearance - ENT ENT exam: Present: normal exam, normal orophraynx, mucous membranes moist - Neck Neck exam: Present: normal inspection, full ROM. Absent: tenderness, meningismus, lymphadenopathy, thyromegaly - Respiratory Respiratory exam: Present: normal lung sounds bilaterally - Cardiovascular Cardiovascular Exam: Present: regular rate, normal rhythm, normal heart sounds - GI/Abdominal GI/Abdominal exam: Present: soft, normal bowel sounds. Absent: distended, tenderness, guarding, rebound, rigid, organomegaly, mass, bruit, pulsatile mass, hernia - Extremities Exam Extremities exam: Present: full ROM, normal capillary refill. Absent: pedal edema, calf tenderness - Neurological Exam Neurological exam: Present: alert, oriented X3 - Psychiatric Psychiatric exam: Present: normal mood - Skin Skin exam: Present: vesicles (lateral side of the left thigh.) ED Course Vital Signs 03/17/19 03/17/19 03/17/19 12:55 16:30 18:30 Temperature 97.7 F Pulse Rate 72 68 64 Respiratory 16 16 14 Rate Blood Pressure 113/52 132/52 134/66 [Right] O2 Sat by Pulse 100 100 96 Oximetry 03/17/19 19:15 Temperature 98.3 F Pulse Rate 65 Respiratory 18 Rate Blood Pressure 129/67 [Right] O2 Sat by Pulse 99 Oximetry ED Medical Decision Making - Lab Data Result diagrams: 03/17/19 13:10 03/17/19 18:35 - Medical Decision Making Patient is 68 years old female with history of CVA, hypertension, diabetes and depression. Patient put to the emergency room by her daughter for evaluation of the left thigh rash that started 3 days ago. Patient stated that started as vesicles and it was a painful. Patient also stated that she had history of nausea and vomiting 3 days ago but now she is better. Patient denied any fever or chills. No chest pain or shortness of breath or abdominal pain. She stated that she was treated with Levaquin for UTI 2 weeks ago. Patient found to have a left thigh shingle. Is positive for UTI. Patient received Macrobid in the ER. Hypokalemia is corrected with K-dur. Patient stated that she is feeling much better. Patient given a prescription for acyclovir, Macrobid and Ultram and advised to follow-up with her primary care physician in the next 2-3 days and to attend to the ER if symptoms are not improved. Critical care attestation.: If time is entered above; I have spent that time in minutes in the direct care of this critically ill patient, excluding procedure time. ED Disposition Clinical Impression: Shingles, UTI (urinary tract infection), Hypokalemia Disposition: TO HOME OR SELFCARE Is pt being admited?: No Condition: Stable Instructions: Urinary Tract Infection in Women (ED), Herpes Zoster (ED) Referrals: PRIMARY CARE, [Primary Care Provider] - 3-5 Days
[2019-03-17] MEDS ORDERED: HYDROcodone/ACETAMINOPHEN 5-325 MG TAB PO ONE (19:10)
[2019-03-17] MEDS ORDERED: NITROFURANTOIN MONOHYD/M-CRYST 100 MG CAP PO ONE (19:10)
[2019-03-17 22:09] VITALS: BP 135/68
== END 2019-03-17 22:11 | disposition home or self-care (01) ==
LOC: ED 11:34
DX: N39.0 Urinary tract infection, site not specified (principal); B02.9 Zoster without complications; E87.6 Hypokalemia; I10 Essential (primary) hypertension; E11.9 Type 2 diabetes mellitus without complications; M19.90 Unspecified osteoarthritis, unspecified site; F32.9 Major depressive disorder, single episode, unspecified; E78.00 Pure hypercholesterolemia, unspecified; Z86.73 Personal history of transient ischemic attack (TIA), and cerebral infarction without residual deficits; Z98.890 Other specified postprocedural states; Z87.891 Personal history of nicotine dependence; Z79.899 Other long term (current) drug therapy; Z88.0 Allergy status to penicillin; Z88.2 Allergy status to sulfonamides
CPT/HCPCS: 36415; 80053; 81001; 84132; 85007; 85025; 96372; 99284; J2270; J2405

== ENCOUNTER 2019-05-05 12:16 | Emergency (ER) | payer MEDICARE ==
[2019-05-05] MEDS ORDERED: MORPHINE 2 MG/1 ML INJ ONE (13:11)
[2019-05-05] MEDS ORDERED: SODIUM CHLORIDE 0.9% 500 ML 500 ML IV ONE (13:39)
[2019-05-05] MEDS ORDERED: HYDROcodone/ACETAMINOPHEN 5-325 MG TAB PO ONE (13:39)
[2019-05-05] MEDS ORDERED: SODIUM CHLORIDE 0.9% 1000 ML IV SOLN IV ONE (13:40)
--- NOTE | 2019-05-05 13:42 | Emergency Department Report ---
ED General Adult HPI - General Chief complaint: Wound/Laceration Stated complaint: BED SORE PAIN Time Seen by Provider: 05/05/19 13:33 Source: patient, EMS Mode of arrival: Stretcher Limitations: Physical Limitation - History of Present Illness Initial comments: 68 yo AA female comes to ER with chronic sacral wound. The family reports that home health RN stopped coming 2 weeks ago and that they need help with wound. Pt lives with daughter who has small kids and I suspect has limited support structure to assist with the pt. Pt had a CVA 1 year ago and has been essentially bed bound since. PCP Dr Welch Pt has appnt with neuro MD in May to determine "why she can not walk" Pt and family poor informants. The pt has no tachycardia, hypotension or fever. She has a/c UTI and recently finished antibiotics but did not follow up to be sure UTI went away. She denies fever, chills, or back pain. Pt is incontinent. -: Gradual, year(s) Location: buttocks Radiation: non-radiation Associated Symptoms: denies other symptoms - Related Data Home Medications Medication Instructions Recorded Confirmed Last Taken Metformin HCl [Fortamet ER] 1,000 mg PO DAILY 02/10/16 02/10/16 1 Day Ago ~02/09/16 1000 Pregabalin [Lyrica] 50 mg PO DAILY 02/10/16 02/10/16 1 Day Ago ~02/09/16 50 amLODIPine [Norvasc] 5 mg PO DAILY 02/10/16 02/10/16 1 Day Ago ~02/09/16 5 Previous Rx's Medication Instructions Recorded Last Taken Type Clopidogrel [Plavix] 75 mg PO QDAY #30 tablet 02/11/16 Unknown Rx Diclofenac Sodium 50 mg PO TID PRN #15 tablet. 09/03/18 Unknown Rx Acyclovir [Zovirax Tab] 400 mg PO Q8H #21 tab 03/17/19 Unknown Rx levoFLOXacin [Levaquin TAB] 500 mg PO BID #20 tablet 05/05/19 Unknown Rx Allergies Allergy/AdvReac Type Severity Reaction Status Date / Time Penicillins Allergy Rash Verified 11/25/14 10:02 Sulfa (Sulfonamide Allergy Rash Verified 11/25/14 10:02 Antibiotics) ED Review of Systems ROS: Stated complaint: BED SORE PAIN Other details as noted in HPI Comment: All other systems reviewed and negative ED Past Medical Hx - Past Medical History Previous Medical History?: Yes Hx Hypertension: Yes Hx CVA: Yes (right side deficit,URINARY INCONTINENCE) Hx Heart Attack/AMI: No Hx Congestive Heart Failure: No Hx Diabetes: Yes Hx Deep Vein Thrombosis: No Hx Pulmonary Embolism: No Hx GERD: No Hx Liver Disease: No Hx Renal Disease: No Hx of Cancer: No Hx Sickle Cell Disease: No Hx Arthritis: Yes Hx Headaches / Migraines: No Hx Seizures: Yes Hx Kidney Stones: No Hx Psychiatric Treatment: Yes (depression) Hx Asthma: No Hx COPD: No Hx Tuberculosis: No Hx Dementia: Yes Hx HIV: No Additional medical history: high cholesterol - Surgical History Past Surgical History?: Yes Additional Surgical History: back surgery - Family History Family history: no significant - Social History Smoking Status: Former Smoker Substance Use Type: None - Medications Home Medications: Home Medications Medication Instructions Recorded Confirmed Last Taken Type Metformin HCl [Fortamet ER] 1,000 mg PO DAILY 02/10/16 02/10/16 1 Day Ago History ~02/09/16 1000 Pregabalin [Lyrica] 50 mg PO DAILY 02/10/16 02/10/16 1 Day Ago History ~02/09/16 50 amLODIPine [Norvasc] 5 mg PO DAILY 02/10/16 02/10/16 1 Day Ago History ~02/09/16 5 Clopidogrel [Plavix] 75 mg PO QDAY #30 tablet 02/11/16 Unknown Rx Diclofenac Sodium 50 mg PO TID PRN #15 tablet. 09/03/18 Unknown Rx Acyclovir [Zovirax Tab] 400 mg PO Q8H #21 tab 03/17/19 Unknown Rx levoFLOXacin [Levaquin TAB] 500 mg PO BID #20 tablet 05/05/19 Unknown Rx ED Physical Exam - General Limitations: Physical Limitation General appearance: alert - Head Head exam: Present: normocephalic - Eye Eye exam: Present: normal appearance - ENT ENT exam: Present: mucous membranes dry - Neck Neck exam: Present: normal inspection - Respiratory Respiratory exam: Present: normal lung sounds bilaterally. Absent: respiratory distress - Cardiovascular Cardiovascular Exam: Present: regular rate, normal rhythm. Absent: systolic murmur, diastolic murmur, rubs, gallop - GI/Abdominal GI/Abdominal exam: Present: soft, normal bowel sounds - Rectal Rectal exam: Present: deferred - Extremities Exam Extremities exam: Present: normal inspection - Back Exam Back exam: Present: normal inspection - Neurological Exam Neurological exam: Present: alert - Psychiatric Psychiatric exam: Present: flat affect - Skin Skin exam: Present: warm, dry, other (stage IV chronic wound to sacrum. no drainage. no escar. See images taken by RN. ). Absent: rash ED Course Vital Signs 05/05/19 05/05/19 05/05/19 13:01 15:51 17:50 Temperature 99.7 F H 99.1 F Pulse Rate 82 65 58 L Respiratory 18 18 15 Rate Blood Pressure 102/46 Blood Pressure 91/40 106/43 [Left] O2 Sat by Pulse 99 100 99 Oximetry 05/05/19 05/05/19 19:01 20:10 Temperature Pulse Rate 62 60 Respiratory 18 18 Rate Blood Pressure Blood Pressure 104/47 108/63 [Left] O2 Sat by Pulse 99 99 Oximetry ED Medical Decision Making - Lab Data Result diagrams: 05/05/19 15:50 05/05/19 15:50 - Medical Decision Making Vital Signs 05/05/19 13:01 Temperature 99.7 F H Pulse Rate 82 Respiratory 18 Rate Blood Pressure 102/46 O2 Sat by Pulse 99 Oximetry Labs 05/05/19 13:54 Lactic Acid 1.20 Lab Results 05/05/19 Range/Units 13:54 Lactic Acid 1.20 (0.7-2.0) mmol/L Lab Results 05/05/19 05/05/19 05/05/19 Range/Units 13:54 15:50 15:50 WBC 9.0 (4.5-11.0) K/mm3 RBC 3.68 (3.65-5.03) M/mm3 Hgb 9.5 L (10.1-14.3) gm/dl Hct 29.6 L (30.3-42.9) % MCV 80 (79-97) fl MCH 26 L (28-32) pg MCHC 32 (30-34) % RDW 15.3 H (13.2-15.2) % Plt Count 355 (140-440) K/mm3 Lymph % (Auto) 24.2 (13.4-35.0) % [place] % (Auto) 8.1 H (0.0-7.3) % Eos % (Auto) 5.6 H (0.0-4.3) % Baso % (Auto) 1.0 (0.0-1.8) % Lymph # 2.2 (1.2-5.4) K/mm3 [place] # 0.7 (0.0-0.8) K/mm3 Eos # 0.5 H (0.0-0.4) K/mm3 Baso # 0.1 (0.0-0.1) K/mm3 Seg Neutrophils % 61.1 (40.0-70.0) % Seg Neutrophils # 5.5 (1.8-7.7) K/mm3 Sodium (137-145) mmol/L Potassium (3.6-5.0) mmol/L Chloride (98-107) mmol/L Carbon Dioxide (22-30) mmol/L Anion Gap mmol/L BUN (7-17) mg/dL Creatinine (0.7-1.2) mg/dL Estimated GFR ml/min BUN/Creatinine Ratio % Glucose (65-100) mg/dL Lactic Acid 1.20 0.80 (0.7-2.0) mmol/L Calcium (8.4-10.2) mg/dL 05/05/19 Range/Units 15:50 WBC (4.5-11.0) K/mm3 RBC (3.65-5.03) M/mm3 Hgb (10.1-14.3) gm/dl Hct (30.3-42.9) % MCV (79-97) fl MCH (28-32) pg MCHC (30-34) % RDW (13.2-15.2) % Plt Count (140-440) K/mm3 Lymph % (Auto) (13.4-35.0) % [place] % (Auto) (0.0-7.3) % Eos % (Auto) (0.0-4.3) % Baso % (Auto) (0.0-1.8) % Lymph # (1.2-5.4) K/mm3 [place] # (0.0-0.8) K/mm3 Eos # (0.0-0.4) K/mm3 Baso # (0.0-0.1) K/mm3 Seg Neutrophils % (40.0-70.0) % Seg Neutrophils # (1.8-7.7) K/mm3 Sodium 140 (137-145) mmol/L Potassium 3.5 L (3.6-5.0) mmol/L Chloride 110.1 H (98-107) mmol/L Carbon Dioxide 18 L (22-30) mmol/L Anion Gap 15 mmol/L BUN 9 (7-17) mg/dL Creatinine 0.2 L (0.7-1.2) mg/dL Estimated GFR > 60 ml/min BUN/Creatinine Ratio 45 % Glucose 84 (65-100) mg/dL Lactic Acid (0.7-2.0) mmol/L Calcium 8.8 (8.4-10.2) mg/dL WOUND NOTED- CHRONIC, STAGE III LIMITED WOUND CARE FOR LAST 2 WEEKS AFTER RN STOPPED COMING METALWORKER TO BEDSIDE and has assisted pt's family with home health concerns HAS DISCUSSED WITH FAMILY HOME HEALTH BEING ARRANGED FOR ONGOING WOUND CARE A/C UTI WBC NORMAL NO FEVER OR CHILLS URINE NOTED- I SUSPECT CONTAMINATED LACTIC ACID NORMAL PT WAS ON ANTIBIOTICS, UNKNOWN WHEN FINISHED, BUT DID NOT FOLLOW UP WITH PCP FOR REEVAL. DC HOME WITH DAUGHTER, HOME HEALTH ARRANGED; LEVAQUIN FOR UTI- FAMILY VERBALIZES UNDERSTANDING OF NEED TO FOLLOW UP WITH MD AFTER MEDS FINISHED 929 11 urine culture noted and as I suspected contaminate blood cultures noted I've called daughter and left voice message for her to call me - to make sure pt is doing ok and that her pcp follow up has been arranged. Critical care attestation.: If time is entered above; I have spent that time in minutes in the direct care of this critically ill patient, excluding procedure time. ED Disposition Clinical Impression: UTI (urinary tract infection), Chronic ulcer of sacral region Disposition: DC- TO HOME OR SELFCARE Is pt being admited?: No Does the pt Need Aspirin: No Condition: Stable Additional Instructions: MEDS ORDERED TONIGHT FOLLOW UP WITH PCP WHEN MEDS ARE FINISHED TO BE SURE THAT THIS INFECTION GOES AWAY KEEP PT HYDRATED WELL TYLENOL AND OR MOTRIN FOR PAIN OR FEVER DIET AND ACTIVITY TOLERATED HOME HEALTH PER OUR METALWORKER FOR WOUND CARE FOR NOW CONTINUE USUAL ROUTINE FOR WOUND CARE. Prescriptions: levoFLOXacin [Levaquin TAB] 500 mg PO BID #20 tablet Referrals: PRIMARY MD AYESHA [Primary Care Provider] - 3-5 Days JERE BLANDON MD [Staff Physician] - 3-5 Days Time of Disposition: 17:55
[2019-05-05] MEDS ORDERED: AZTREONAM/NS 1 GM/50 ML 1 GM/50 ML VIAL IV SCH (14:00)
[2019-05-05 16:14] LABS: Basophils # (Auto) 0.1 K/mm3 (0.0-0.1); Eosinophils # (Auto) 0.5 K/mm3 (0.0-0.4); Eosinophils % (Auto) 5.6 % (0.0-4.3); Hematocrit 29.6 % (30.3-42.9); Hemoglobin 9.5 gm/dl (10.1-14.3); Lymphocytes # (Auto) 2.2 K/mm3 (1.2-5.4); Lymphocytes % (Auto) 24.2 % (13.4-35.0); Mean Corpuscular HGB Conc 32 % (30-34); Mean Corpuscular Volume 80 fl (79-97); Monocytes # (Auto) 0.7 K/mm3 (0.0-0.8); Monocytes % (Auto) 8.1 % (0.0-7.3); Platelet Count 355 K/mm3 (140-440); Red Blood Count 3.68 M/mm3 (3.65-5.03); Red Cell Distribution Width 15.3 % (13.2-15.2)
[2019-05-05] MEDS ORDERED: IBUPROFEN ORAL LIQD 100 MG/5 ML ORAL.LIQD PO ONE (16:20)
[2019-05-05 16:28] LABS: BUN/Creatinine Ratio 45; Blood Urea Nitrogen 9 mg/dL (7-17); Calcium 8.8 mg/dL (8.4-10.2); Hemolysis Index 8
[2019-05-05] MEDS ORDERED: POTASSIUM CHLORIDE ER 20 MEQ TAB PO ONE (17:53)
[2019-05-05 18:14] LABS: Bilirubin,Urine NEG (Negative); Blood,Urine LG (Negative); Color,Urine Yellow (Yellow); Urobilinogen,Urine < 2.0 mg/dL (<2.0)
[2019-05-05 18:16] LABS: WBC,Urine > 182.0 /HPF (0.0-6.0)
[2019-05-05 20:11] VITALS: BP 108/63
== END 2019-05-05 20:11 | disposition home or self-care (01) ==
LOC: ED 12:16
DX: N39.0 Urinary tract infection, site not specified (principal); L98.499 Non-pressure chronic ulcer of skin of other sites with unspecified severity; I10 Essential (primary) hypertension; E11.9 Type 2 diabetes mellitus without complications; M19.90 Unspecified osteoarthritis, unspecified site; F32.9 Major depressive disorder, single episode, unspecified
CPT/HCPCS: 36415; 80048; 81001; 82140; 85025; 87040; 87086; 96365; 99284; J7030; J2270

== ENCOUNTER 2019-05-07 11:40 | Inpatient (IN) | payer MEDICARE ==
--- NOTE | 2019-05-07 12:33 | Emergency Department Report ---
ED General Adult HPI - General Chief complaint: Urogenital-Female Stated complaint: BLOOD IN URINE Time Seen by Provider: 05/07/19 12:32 Source: EMS Mode of arrival: Stretcher Limitations: No Limitations - History of Present Illness Initial comments: PT IS A 68 YO FEMALE WHO COMES TO THE ER WITH "BLOODY URINE." PT SEEN HERE 2 DAYS AGO. INFACT, I REVIEWED HER CULTURES THIS AM FROM THAT VISIT. PT LOOKS MUCH OLDER THAN STATED AGE IS DEBILITATED SP CVA. SHE LIVES WITH HER DAUGHTER. 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 THEY THEN STOPPED COMING. WHEN PT WAS HERE 2 DAYS AGO WE HAD DRILL PRESS OPERATOR SEE PT AND THEY SET UP HOME HEALTH. PT STATES THE RN STILL HAS NOT COME. SEE IMAGES OF WOUND. GRANULATION PRESENT/DRY EDGES/SEROUS DRAINAGE LOW GRADE TEMP NOTED TODAY DAUGHTER IS NOT IN ER WITH PT. REFER TO NOTE 48 HOURS AGO FOR ADDITIONAL INFORMATION. PCP [facility] -: month(s) Severity scale (0 -10): 9 Associated Symptoms: denies: confusion, chest pain, cough, diaphoresis, fever/chills, headaches, loss of appetite, malaise, nausea/vomiting, rash, shortness of breath, syncope, weakness Treatments Prior to Arrival: none - Related Data Home Medications Medication Instructions Recorded Confirmed Last Taken Metformin HCl [Fortamet ER] 1,000 mg PO DAILY 02/10/16 02/10/16 1 Day Ago ~02/09/16 1000 Pregabalin [Lyrica] 50 mg PO DAILY 02/10/16 02/10/16 1 Day Ago ~02/09/16 50 amLODIPine [Norvasc] 5 mg PO DAILY 02/10/16 02/10/16 1 Day Ago ~02/09/16 5 Previous Rx's Medication Instructions Recorded Last Taken Type Clopidogrel [Plavix] 75 mg PO QDAY #30 tablet 02/11/16 Unknown Rx Diclofenac Sodium 50 mg PO TID PRN #15 tablet. 09/03/18 Unknown Rx Acyclovir [Zovirax Tab] 400 mg PO Q8H #21 tab 03/17/19 Unknown Rx levoFLOXacin [Levaquin TAB] 500 mg PO BID #20 tablet 05/05/19 Unknown Rx Allergies Allergy/AdvReac Type Severity Reaction Status Date / Time Penicillins Allergy Rash Verified 05/07/19 12:13 Sulfa (Sulfonamide Allergy Rash Verified 05/07/19 12:13 Antibiotics) ED Review of Systems ROS: Stated complaint: BLOOD IN URINE Other details as noted in HPI Comment: All other systems reviewed and negative ED Past Medical Hx - Past Medical History Previous Medical History?: Yes Hx Hypertension: Yes Hx CVA: Yes (right side deficit,URINARY INCONTINENCE) Hx Heart Attack/AMI: No Hx Congestive Heart Failure: No Hx Diabetes: Yes Hx Deep Vein Thrombosis: No Hx Pulmonary Embolism: No Hx GERD: No Hx Liver Disease: No Hx Renal Disease: No Hx Sickle Cell Disease: No Hx Arthritis: Yes Hx Headaches / Migraines: No Hx Seizures: Yes Hx Kidney Stones: No Hx Psychiatric Treatment: Yes (depression) Hx Asthma: No Hx COPD: No Hx Tuberculosis: No Hx Dementia: Yes Hx HIV: No Additional medical history: high cholesterol - Surgical History Past Surgical History?: Yes Additional Surgical History: back surgery - Family History Family history: no significant - Social History Smoking Status: Former Smoker Substance Use Type: None - Medications Home Medications: Home Medications Medication Instructions Recorded Confirmed Last Taken Type Metformin HCl [Fortamet ER] 1,000 mg PO DAILY 02/10/16 02/10/16 1 Day Ago History ~02/09/16 1000 Pregabalin [Lyrica] 50 mg PO DAILY 02/10/16 02/10/16 1 Day Ago History ~02/09/16 50 amLODIPine [Norvasc] 5 mg PO DAILY 02/10/16 02/10/16 1 Day Ago History ~02/09/16 5 Clopidogrel [Plavix] 75 mg PO QDAY #30 tablet 02/11/16 Unknown Rx Diclofenac Sodium 50 mg PO TID PRN #15 tablet.dr 09/03/18 Unknown Rx Acyclovir [Zovirax Tab] 400 mg PO Q8H #21 tab 03/17/19 Unknown Rx levoFLOXacin [Levaquin TAB] 500 mg PO BID #20 tablet 05/05/19 Unknown Rx ED Physical Exam - General Limitations: No Limitations General appearance: alert - Head Head exam: Present: atraumatic, normocephalic - Eye Eye exam: Present: normal appearance - ENT ENT exam: Present: mucous membranes moist - Neck Neck exam: Present: normal inspection - Respiratory Respiratory exam: Present: normal lung sounds bilaterally. Absent: respiratory distress - Cardiovascular Cardiovascular Exam: Present: regular rate, normal rhythm. Absent: systolic murmur, diastolic murmur, rubs, gallop - GI/Abdominal GI/Abdominal exam: Present: soft, normal bowel sounds - Rectal Rectal exam: Present: other - External exam: Present: bleeding - Extremities Exam Extremities exam: Present: other (CONTRACTED) - Back Exam Back exam: Present: normal inspection - Neurological Exam Neurological exam: Present: alert, abnormal gait - Psychiatric Psychiatric exam: Present: flat affect - Skin Skin exam: Present: warm, dry, other. Absent: rash ED Course Vital Signs 05/07/19 05/07/19 05/07/19 12:13 12:18 12:30 Temperature 99.7 F H Pulse Rate 83 82 Respiratory 15 21 Rate Blood Pressure 111/49 Blood Pressure 121/55 [Right] O2 Sat by Pulse 100 100 99 Oximetry 05/07/19 05/07/19 05/07/19 12:45 13:00 13:15 Temperature Pulse Rate 85 82 84 Respiratory 12 13 13 Rate Blood Pressure 120/61 115/55 105/54 Blood Pressure [Right] O2 Sat by Pulse 100 99 97 Oximetry 05/07/19 13:30 Temperature Pulse Rate 83 Respiratory 15 Rate Blood Pressure 126/53 Blood Pressure [Right] O2 Sat by Pulse 100 Oximetry ED Medical Decision Making - Lab Data Result diagrams: 05/07/19 13:00 05/07/19 13:00 - Radiology Data Radiology results: report reviewed, image reviewed - Medical Decision Making Labs 05/07/19 05/07/19 05/07/19 13:00 13:00 13:00 WBC 13.1 H RBC 3.16 L Hgb 8.2 L Hct 25.3 L MCV 80 MCH 26 L MCHC 32 RDW 14.7 Plt Count 424 Lymph % (Auto) 19.2 [place] % (Auto) 7.8 H Eos % (Auto) 2.0 Baso % (Auto) 0.9 Lymph # 2.5 [place] # 1.0 H Eos # 0.3 Baso # 0.1 Seg Neutrophils % 70.1 H Seg Neutrophils # 9.2 H Sodium 138 Potassium 3.4 L Chloride 102.9 Carbon Dioxide 21 L Anion Gap 18 BUN 6 L Creatinine 0.2 L Estimated GFR > 60 BUN/Creatinine Ratio 30 Glucose 103 H Lactic Acid 0.90 Calcium 9.5 Total Bilirubin 0.50 AST 13 ALT 11 Alkaline Phosphatase 88 Total Protein 6.2 L Albumin 3.0 L Albumin/Globulin Ratio 0.9 Vital Signs 05/07/19 05/07/19 05/07/19 12:13 12:18 12:30 Temperature 99.7 F H Pulse Rate 83 82 Respiratory 15 21 Rate Blood Pressure 111/49 Blood Pressure 121/55 [Right] O2 Sat by Pulse 100 100 99 Oximetry 05/07/19 05/07/19 05/07/19 12:45 13:00 13:15 Temperature Pulse Rate 85 82 84 Respiratory 12 13 13 Rate Blood Pressure 120/61 115/55 105/54 Blood Pressure [Right] O2 Sat by Pulse 100 99 97 Oximetry 05/07/19 13:30 Temperature Pulse Rate 83 Respiratory 15 Rate Blood Pressure 126/53 Blood Pressure [Right] O2 Sat by Pulse [address] KHOA MALCOLM/ANTIBIOTICS GIVEN LABS NOTED LACTIC NORMAL CULTURES PENDING XRAY PENDING DISCUSSED WITH DR ORTIZ- ADMIT FOR TREATMENT. WILL NEED WOUND CARE CONSULT FOR STAGE IV DECUBITUS WOUND- SEE IMAGES WILL NEED SOCIAL SERVICE/CASE MANAGEMENT- PLACEMENT/HOME CARE - Differential Diagnosis RO UROSEPSIS Critical care attestation.: If time is entered above; I have spent that time in minutes in the direct care of this critically ill patient, excluding procedure time. ED Disposition Clinical Impression: UTI (urinary tract infection), Chronic ulcer of sacral region, Diabetes, CVA, old, hemiparesis, Debility Disposition: OP ADMIT IP TO THIS HOSP Is pt being admited?: Yes Does the pt Need Aspirin: No Condition: Stable Time of Disposition: 14:21
[2019-05-07 13:29] LABS: Basophils # (Auto) 0.1 K/mm3 (0.0-0.1); Basophils % (Auto) 0.9 % (0.0-1.8); Eosinophils # (Auto) 0.3 K/mm3 (0.0-0.4); Hematocrit 25.3 % (30.3-42.9); Hemoglobin 8.2 gm/dl (10.1-14.3); Lymphocytes # (Auto) 2.5 K/mm3 (1.2-5.4); Lymphocytes % (Auto) 19.2 % (13.4-35.0); Mean Corpuscular HGB Conc 32 % (30-34); Mean Corpuscular Volume 80 fl (79-97); Monocytes % (Auto) 7.8 % (0.0-7.3); Platelet Count 424 K/mm3 (140-440); Red Blood Count 3.16 M/mm3 (3.65-5.03); Red Cell Distribution Width 14.7 % (13.2-15.2)
[2019-05-07] MEDS ORDERED: SODIUM CHLORIDE 0.9% 1000 ML IV SOLN IV ONE (13:44)
[2019-05-07] MEDS ORDERED: AZTREONAM/NS 1 GM/50 ML 1 GM/50 ML VIAL IV ONE (13:45)
[2019-05-07 13:52] LABS: Alanine Aminotransferase 11 units/L (7-56); BUN/Creatinine Ratio 30; Blood Urea Nitrogen 6 mg/dL (7-17); Calcium 9.5 mg/dL (8.4-10.2); Hemolysis Index 1
[2019-05-07 14:05] LABS: Bacteria,Urine 2+ /HPF (Negative); Mucus,Urine FEW /HPF
[2019-05-07 14:41] LABS: Color,Urine Red (Yellow); WBC,Urine > 182.0 /HPF (0.0-6.0)
[2019-05-07 14:42] LABS: Bilirubin,Urine TNR (Negative); Blood,Urine TNR (Negative); PH,Urine TNR (5.0-7.0)
[2019-05-07 14:43] LABS: Protein,Urine TNR mg/dL (Negative); Urobilinogen,Urine TNR mg/dL (<2.0)
[2019-05-07 14:47] LABS: Ictotest,Urine TNR (Negative)
--- NOTE | 2019-05-07 15:12 | XRay Report ---
CHEST 1 VIEW INDICATION: FEVER. COMPARISON: None FINDINGS: Support devices: None. Heart: Within normal limits. Lungs/Pleura: No acute air space or interstitial disease. Additional findings: None. IMPRESSION: No acute findings. Signer Name: Jose Franklin Jr, MD Signed: 05/07/2019 3:07 PM Workstation Name: [id number]
[2019-05-07] MEDS ORDERED: ACETAMINOPHEN 500 MG TAB PO ONE (15:39)
--- NOTE | 2019-05-07 16:07 | History and Physical Report ---
History of Present Illness Date of examination: 05/07/19 Date of admission: 05/07/19 Chief complaint: Bloody urine for 1 day History of present illness: 68 year old female brought in by daughter fro bloody urine and sacral decubitus ulcer. Patient was in ER 2 days ago and treated for UTI with Levaquin.No fever or chills.Daughter unable to take care of Sacral decubitus ulcer.Home health nurse is not coming.Slight confusion present.But able to answer questions appro priately. Past Medical History Previous Medical History?: Yes Hypertension: Yes CVA: Yes (right side deficit,URINARY INCONTINENC Diabetes: Yes Arthritis: Yes Psychiatric Treatment: Yes (depression) Dementia: Yes Additional medical history: high cholesterol Surgical History Past Surgical History?: Yes Additional Surgical History: back surgery Family History Family history: no significant Social History Smoking Status: Former Smoker Substance Use Type: None Medications Home Medications: Home Medications Medication Instructions Recorded Confirmed Last Taken Type Metformin HCl [Fortamet ER] 1,000 mg PO DAILY 02/10/16 02/10/16 1 Day Ago History ~02/09/16 1000 Pregabalin [Lyrica] 50 mg PO DAILY 02/10/16 02/10/16 1 Day Ago History ~02/09/16 50 amLODIPine [Norvasc] 5 mg PO DAILY 02/10/16 02/10/16 1 Day Ago History ~02/09/16 5 Clopidogrel [Plavix] 75 mg PO QDAY #30 tablet 02/11/16 Unknown Rx Diclofenac Sodium 50 mg PO TID PRN #15 tablet. 09/03/18 Unknown Rx Acyclovir [Zovirax Tab] 400 mg PO Q8H #21 tab 03/17/19 Unknown Rx levoFLOXacin [Levaquin TAB] 500 mg PO BID #20 tablet 05/05/19 Unknown Rx Review of Systems ROS: Stated complaint: BLOOD IN URINE Other details as noted in HPI Sacral decubitus ulcer Comment: All other systems reviewed and negative Medications and Allergies Allergies Allergy/AdvReac Type Severity Reaction Status Date / Time Penicillins Allergy Rash Verified 05/07/19 12:13 Sulfa (Sulfonamide Allergy Rash Verified 05/07/19 12:13 Antibiotics) Home Medications Medication Instructions Recorded Confirmed Last Taken Type Metformin HCl [Fortamet ER] 1,000 mg PO BID 02/10/16 02/10/16 1 Day Ago History ~02/09/16 1000 amLODIPine [Norvasc] 5 mg PO DAILY 02/10/16 02/10/16 1 Day Ago History ~02/09/16 5 Clopidogrel [Plavix] 75 mg PO QDAY #30 tablet 02/11/16 Unknown Rx Diclofenac Sodium 50 mg PO TID PRN #15 tablet. 09/03/18 Unknown Rx Acyclovir [Zovirax Tab] 400 mg PO Q8H #21 tab 03/17/19 Unknown Rx levoFLOXacin [Levaquin TAB] 500 mg PO BID #20 tablet 05/05/19 Unknown Rx Citalopram [celeXA] 10 mg PO QDAY 05/07/19 05/07/19 Unknown History Gabapentin [Neurontin] 300 mg PO BID 05/07/19 05/07/19 Unknown History Ibuprofen [Motrin] 800 mg PO Q8HR PRN 05/07/19 05/07/19 Unknown History LORazepam [Lorazepam] 1 mg PO DAILY 05/07/19 05/07/19 Unknown History Oxybutynin [Ditropan] 5 mg PO HS 05/07/19 05/07/19 Unknown History Pregabalin [Lyrica] 300 mg PO BID 05/07/19 05/07/19 Unknown History Sertraline 05/07/19 Unknown History Sertraline [Zoloft] 25 mg PO QDAY 05/07/19 05/07/19 Unknown History carvediloL [Coreg] 6.25 mg PO BID 05/07/19 05/07/19 Unknown History levETIRAcetam [Keppra TAB] 1,000 mg PO BID 05/07/19 05/07/19 Unknown History traMADoL [Ultram] 50 mg PO Q6HR PRN 05/07/19 05/07/19 Unknown History Exam - Constitutional Vitals: Temp Pulse Resp BP Pulse Ox 99.3 F 82 19 119/54 99 05/07/19 15:35 05/07/19 15:30 05/07/19 15:30 05/07/19 15:30 05/07/19 15:30 General appearance: Present: no acute distress, well-nourished - EENT Eyes: Present: PERRL ENT: hearing intact, clear oral mucosa - Neck Neck: Present: supple, normal ROM - Respiratory Respiratory effort: normal Respiratory: bilateral: CTA - Cardiovascular Heart rate: 78 Rhythm: regular Heart Sounds: Present: S1 & S2. Absent: rub, click - Extremities Extremities: no ischemia, pulses intact, pulses symmetrical, No edema, abnormal (6cm x 6cm sacral decubitus ulcer.No drainage.Stg 3 decub ulcer) Peripheral Pulses: within normal limits - Abdominal General gastrointestinal: Present: soft, non-tender, non-distended, normal bowel sounds Female genitourinary: Present: normal - Integumentary Integumentary: Present: clear, warm, dry - Musculoskeletal Musculoskeletal: gait normal, strength equal bilaterally - Psychiatric Psychiatric: appropriate mood/affect, intact judgment & insight - Neurologic Neurologic: CNII-XII intact, moves all extremities Results - Labs CBC & Chem 7: 05/07/19 13:00 05/08/19 04:18 Labs: Laboratory Last Values WBC 13.1 K/mm3 (4.5-11.0) H 05/07/19 13:00 RBC 3.16 M/mm3 (3.65-5.03) L 05/07/19 13:00 Hgb 8.2 gm/dl (10.1-14.3) L 05/07/19 13:00 Hct 25.3 % (30.3-42.9) L 05/07/19 13:00 MCV 80 fl (79-97) 05/07/19 13:00 MCH 26 pg (28-32) L 05/07/19 13:00 MCHC 32 % (30-34) 05/07/19 13:00 RDW 14.7 % (13.2-15.2) 05/07/19 13:00 Plt Count 424 K/mm3 (140-440) 05/07/19 13:00 Lymph % (Auto) 19.2 % (13.4-35.0) 05/07/19 13:00 Faulkner % (Auto) 7.8 % (0.0-7.3) H 05/07/19 13:00 Eos % (Auto) 2.0 % (0.0-4.3) 05/07/19 13:00 Baso % (Auto) 0.9 % (0.0-1.8) 05/07/19 13:00 Lymph # 2.5 K/mm3 (1.2-5.4) 05/07/19 13:00 [place]ner # 1.0 K/mm3 (0.0-0.8) H 05/07/19 13:00 Eos # 0.3 K/mm3 (0.0-0.4) 05/07/19 13:00 Baso # 0.1 K/mm3 (0.0-0.1) 05/07/19 13:00 Seg Neutrophils % 70.1 % (40.0-70.0) H 05/07/19 13:00 Seg Neutrophils # 9.2 K/mm3 (1.8-7.7) H 05/07/19 13:00 Sodium 138 mmol/L (137-145) 05/07/19 13:00 Potassium 3.4 mmol/L (3.6-5.0) L 05/07/19 13:00 Chloride 102.9 mmol/L (98-107) 05/07/19 13:00 Carbon Dioxide 21 mmol/L (22-30) L 05/07/19 13:00 Anion Gap 18 mmol/L 05/07/19 13:00 BUN 6 mg/dL (7-17) L 05/07/19 13:00 Creatinine 0.2 mg/dL (0.7-1.2) L 05/07/19 13:00 Estimated GFR > 60 ml/min 05/07/19 13:00 BUN/Creatinine Ratio 30 % 05/07/19 13:00 Glucose 103 mg/dL (65-100) H 05/07/19 13:00 Lactic Acid 0.90 mmol/L (0.7-2.0) 05/07/19 13:00 Calcium 9.5 mg/dL (8.4-10.2) 05/07/19 13:00 Total Bilirubin 0.50 mg/dL (0.1-1.2) 05/07/19 13:00 AST 13 units/L (5-40) 05/07/19 13:00 ALT 11 units/L (7-56) 05/07/19 13:00 Alkaline Phosphatase 88 units/L (35-129) 05/07/19 13:00 Total Protein 6.2 g/dL (6.3-8.2) L 05/07/19 13:00 Albumin 3.0 g/dL (3.9-5) L 05/07/19 13:00 Albumin/Globulin Ratio 0.9 % 05/07/19 13:00 Urine Color Red (Yellow) 05/07/19 13:30 Urine Turbidity Turbid (Clear) 05/07/19 13:30 Urine pH TNR 05/07/19 13:30 Ur Specific [place] TNR 05/07/19 13:30 Urine Protein TNR 05/07/19 13:30 Urine Glucose (UA) TNR 05/07/19 13:30 Urine Ketones TNR 05/07/19 13:30 Urine Blood TNR 05/07/19 13:30 Urine Nitrite TNR 05/07/19 13:30 Ur Reducing Substances Not Reportable 05/07/19 13:30 Urine Bilirubin TNR 05/07/19 13:30 Urine Ictotest TNR 05/07/19 13:30 Urine Urobilinogen TNR 05/07/19 13:30 Ur Leukocyte Esterase TNR 05/07/19 13:30 Urine WBC (Auto) > 182.0 /HPF (0.0-6.0) H 05/07/19 13:30 Urine RBC (Auto) 2.0 /HPF (0.0-6.0) 05/07/19 13:30 U Epithel Cells (Auto) 11.0 /HPF (0-13.0) 05/07/19 13:30 Urine Bacteria (Auto) 2+ /HPF (Negative) 05/07/19 13:30 Urine Mucus Few /HPF 05/07/19 13:30 Short CBC 05/07/19 Range/Units 13:00 WBC 13.1 H (4.5-11.0) K/mm3 Hgb 8.2 L (10.1-14.3) gm/dl Hct 25.3 L (30.3-42.9) % Plt Count 424 (140-440) K/mm3 BMP 05/07/19 05/08/19 13:00 04:18 Sodium 138 140 Potassium 3.4 L 4.3 D Chloride 102.9 109.7 H Carbon Dioxide 21 L 17 L BUN 6 L 7 Creatinine 0.2 L 0.2 L Glucose 103 H 66 Calcium 9.5 8.9 Liver Function 05/07/19 05/08/19 Range/Units 13:00 04:18 Total Bilirubin 0.50 0.30 (0.1-1.2) mg/dL AST 13 16 (5-40) units/L ALT 11 11 (7-56) units/L Alkaline Phosphatase 88 81 (35-129) units/L Albumin 3.0 L 2.7 L (3.9-5) g/dL Urine // Range/Units 13:30 Urine Color Red (Yellow) Urine pH TNR Ur Specific [place] TNR Urine Protein TNR Urine Glucose (UA) TNR - Imaging and Cardiology Chest x-ray: report reviewed (NAF) Assessment and Plan Advance Directives: Yes (Full code) VTE prophylaxis?: Chemical Plan of care discussed with patient/family: Yes - Patient Problems (1) SIRS (systemic inflammatory response syndrome) Current Visit: Yes Status: Acute Plan to address problem: Elevated WBC confusion and UTI IV Abx for now (2) UTI (urinary tract infection) Current Visit: No Status: Acute Qualifiers: Urinary tract infection type: acute cystitis Plan to address problem: IV Ceftriaxone and IV Fluids pending cultures (3) Sacral decubitus ulcer, stage III Current Visit: Yes Status: Acute Plan to address problem: Wound care consult and Surgery consult requested (4) CVA, old, hemiparesis Current Visit: No Status: Chronic Plan to address problem: PT/OT (5) HTN (hypertension) Current Visit: No Status: Chronic Qualifiers: Hypertension type: essential hypertension Qualified Code(s): I10 - Essential (primary) hypertension Plan to address problem: COnt antihypertensives (6) Diabetes Current Visit: No Status: Chronic Qualifiers: Diabetes mellitus type: type 2 Plan to address problem: Coverage for now and cont Metformin Check A1c (7) DVT prophylaxis Current Visit: No Status: Acute Plan to address problem: On Heparin and GI prophylaxis
[2019-05-07] MEDS ORDERED: D5W/0.9% NACL 1,000 ML IV SCH (17:00)
[2019-05-07] MEDS: oxyCODONE /ACETAMINOPHEN 5-325MG TAB PO PRN (20:38)
[2019-05-07] MEDS: cefTRIAXone/NS 2 GM/100 ML 2 GM/100 ML BAG IV SCH (21:56)
[2019-05-07] MEDS ORDERED: DICLOFENAC EC 25 MG TAB PO PRN (22:21)
[2019-05-07] MEDS ORDERED: IBUPROFEN 800 MG TAB PO PRN (22:21)
[2019-05-07] MEDS ORDERED: ONDANSETRON 4 MG/2 ML INJ IV PRN (22:24)
[2019-05-07] MEDS ORDERED: ACETAMINOPHEN 325 MG TAB PO PRN (22:24)
[2019-05-07] MEDS ORDERED: SODIUM CHLORIDE 0.9% 1000 ML 1,000 ML IV SCH (23:00)
[2019-05-07] MEDS ORDERED: VANCOMYCIN PHARMACY TO DOSE IV SCH (23:00)
[2019-05-07] MEDS ORDERED: VANCOMYCIN 1,500 MG in SODIUM CHLORIDE 0.9% 500 ML 500 ML IV ONE (23:15)
[2019-05-07] MEDS ORDERED: POTASSIUM CHLORIDE ER 20 MEQ TAB PO ONE (23:15)
[2019-05-07] MEDS: PREGABALIN 75 MG CAP PO SCH (23:36)
[2019-05-07] MEDS: levETIRAcetam 500 MG TAB PO SCH (23:37)
[2019-05-08] MEDS: carvediloL 6.25 MG TAB PO SCH ×3 (00:16→21:49)
[2019-05-08] MEDS: HYDROmorphone 1 MG/1 ML INJ IV PRN ×2 (00:23→20:07)
[2019-05-08] MEDS: INSULIN LISPRO 100 UNIT/ML SUB-Q SCH ×4 (00:52→17:15)
[2019-05-08] MEDS: oxyCODONE /ACETAMINOPHEN 5-325MG TAB PO PRN ×2 (04:18→23:51)
[2019-05-08 05:16] LABS: Alanine Aminotransferase 11 units/L (7-56); Albumin 2.7 g/dL (3.9-5); BUN/Creatinine Ratio 35; Blood Urea Nitrogen 7 mg/dL (7-17); Calcium 8.9 mg/dL (8.4-10.2); Hemolysis Index 17
[2019-05-08] MEDS ORDERED: INSULIN LISPRO 100 UNIT/ML SUB-Q SCH (07:30)
[2019-05-08 08:23] LABS: Hematocrit 26.4 % (30.3-42.9); Hemoglobin 8.5 gm/dl (10.1-14.3); Mean Corpuscular HGB Conc 32 % (30-34); Mean Corpuscular Volume 80 fl (79-97); Platelet Count 381 K/mm3 (140-440)
[2019-05-08 08:24] LABS: Basophils % (Auto) 0.6 % (0.0-1.8); Eosinophils % (Auto) 2.9 % (0.0-4.3); Lymphocytes % (Auto) 13.4 % (13.4-35.0); Monocytes % (Auto) 7.5 % (0.0-7.3)
[2019-05-08 08:25] LABS: Basophils # (Auto) 0.1 K/mm3 (0.0-0.1); Eosinophils # (Auto) 0.3 K/mm3 (0.0-0.4); Lymphocytes # (Auto) 1.6 K/mm3 (1.2-5.4); Monocytes # (Auto) 0.9 K/mm3 (0.0-0.8)
[2019-05-08] MEDS: metFORMIN XR 500MG TAB PO SCH ×2 (08:45→17:15)
[2019-05-08] MEDS: levETIRAcetam 500 MG TAB PO SCH ×2 (09:11→21:49)
[2019-05-08] MEDS: CLOPIDOGREL 75 MG TAB PO SCH (09:11)
[2019-05-08] MEDS: LORazepam 1 MG TAB PO SCH (09:12)
[2019-05-08] MEDS: SERTRALINE 25 MG TAB PO SCH (09:12)
[2019-05-08] MEDS: CITALOPRAM 10 MG TAB PO SCH (09:12)
[2019-05-08] MEDS: FAMOTIDINE 20 MG TAB PO SCH ×2 (09:12→21:49)
[2019-05-08] MEDS: amLODIPine 5 MG TAB PO SCH (09:13)
[2019-05-08] MEDS ORDERED: NON-FORMULARY EACH (Pregabalin [Lyrica] 300 MG) PO SCH (10:00)
[2019-05-08] MEDS: PREGABALIN 75 MG CAP PO SCH ×2 (10:25→21:48)
[2019-05-08] MEDS: HEPARIN 5,000 UNIT/1 ML VIAL SUB-Q SCH ×2 (10:45→21:50)
[2019-05-08] MEDS ORDERED: FLU VACC QUAD 2019-20 (3 YR UP)/PF 60 MCG/0.5 ML SYRINGE IM ONE (12:00)
[2019-05-08] MEDS ORDERED: VANCOMYCIN/NS 1 GM/250 ML 1 GM/250 ML BAG IV SCH (12:00)
--- NOTE | 2019-05-08 12:58 | Consultation ---
History of Present Illness Consult date: 05/08/19 Chief complaint: sacral wound - History of present illness History of present illness: 68 yo F with hx of CVA presents to the hospital with daughter for blood in urine. Patient was hospitalized in September at outside facility and developed sacral wound. Wound was being managed by home care and started healing. A week or so ago, the patient's daughter noted the wound started having a foul odor and was getting larger. The patient has been more somnolent for the last 2-3 days with poor appetite. Otherwise, she has a healthy appetite. She is constantly laying on her back. Patient states that she has urinary incontinence and the sacral area is often wet with urine. NO f/c, cp, sob. Patient c/o "pain all over" for many years. Past History Past Medical History: diabetes, hypertension, stroke, other (chronic pain ) Social history: no significant social history Family history: no significant family history Medications and Allergies Allergies Allergy/AdvReac Type Severity Reaction Status Date / Time Penicillins Allergy Rash Verified 05/07/19 12:13 Sulfa (Sulfonamide Allergy Rash Verified 05/07/19 12:13 Antibiotics) Home Medications Medication Instructions Recorded Confirmed Last Taken Type Metformin HCl [Fortamet ER] 1,000 mg PO BID 02/10/16 02/10/16 1 Day Ago History ~02/09/16 1000 amLODIPine [Norvasc] 5 mg PO DAILY 02/10/16 02/10/16 1 Day Ago History ~02/09/16 5 Clopidogrel [Plavix] 75 mg PO QDAY #30 tablet 02/11/16 Unknown Rx Diclofenac Sodium 50 mg PO TID PRN #15 tablet 09/03/18 Unknown Rx Acyclovir [Zovirax Tab] 400 mg PO Q8H #21 tab 03/17/19 Unknown Rx levoFLOXacin [Levaquin TAB] 500 mg PO BID #20 tablet 05/05/19 Unknown Rx Citalopram [celeXA] 10 mg PO QDAY 05/07/19 05/07/19 Unknown History Gabapentin [Neurontin] 300 mg PO BID 05/07/19 05/07/19 Unknown History Ibuprofen [Motrin] 800 mg PO Q8HR PRN 05/07/19 05/07/19 Unknown History LORazepam [Lorazepam] 1 mg PO DAILY 05/07/19 05/07/19 Unknown History Oxybutynin [Ditropan] 5 mg PO HS 05/07/19 05/07/19 Unknown History Pregabalin [Lyrica] 300 mg PO BID 05/07/19 05/07/19 Unknown History Sertraline 05/07/19 Unknown History Sertraline [Zoloft] 25 mg PO QDAY 05/07/19 05/07/19 Unknown History carvediloL [Coreg] 6.25 mg PO BID 05/07/19 05/07/19 Unknown History levETIRAcetam [Keppra TAB] 1,000 mg PO BID 05/07/19 05/07/19 Unknown History traMADoL [Ultram] 50 mg PO Q6HR PRN 05/07/19 05/07/19 Unknown History Active Meds: Active Medications Acetaminophen (Tylenol) 650 mg PO Q4H PRN PRN Reason: Pain MILD(1-3)/Fever >100.5/NARAYAN Amlodipine Besylate (Amlodipine) 5 mg PO DAILY [facility] Last Admin: 05/08/19 09:13 Dose: 5 mg Documented by: Carvedilol (Coreg) 6.25 mg PO BID [facility] Last Admin: 05/08/19 09:14 Dose: 6.25 mg Documented by: Citalopram Hydrobromide (Celexa) 10 mg PO QDAY [facility] Last Admin: 05/08/19 09:12 Dose: 10 mg Documented by: Clopidogrel Bisulfate (Plavix) 75 mg PO QDAY [facility] Last Admin: 05/08/19 09:11 Dose: 75 mg Documented by: Diclofenac Sodium (Voltaren) 50 mg PO TID PRN PRN Reason: Pain , Severe (7-10) Famotidine (Pepcid) 20 mg PO BID [facility] Last Admin: 05/08/19 09:12 Dose: 20 mg Documented by: Heparin Sodium (Porcine) (Heparin) 5,000 unit SUB-Q Q12HR [facility] Last Admin: 05/08/19 10:45 Dose: Not Given Documented by: Hydromorphone HCl (Dilaudid) 0.5 mg IV Q3H PRN PRN Reason: Pain , Severe (7-10) Last Admin: 05/08/19 00:23 Dose: 0.5 mg Documented by: Ceftriaxone Sodium (Rocephin/Ns 2 Gm/100 Ml) 2 gm in 100 mls @ 200 mls/hr IV Q2 4H [facility]; Protocol Last Admin: 05/07/19 21:56 Dose: 200 mls/hr Documented by: Vancomycin HCl 1,250 mg/ (Sodium Chloride) 275 mls @ 166.667 mls/hr IV Q24H [facility] Ibuprofen (Ibuprofen) 800 mg PO Q8H PRN PRN Reason: Pain, Moderate (4-6) Last Admin: 05/08/19 09:14 Dose: 800 mg Documented by: Insulin Human Lispro (Humalog) 0 unit SUB-Q ACHS [facility]; Protocol Last Admin: 05/08/19 12:22 Dose: 2 unit Documented by: Levetiracetam (Keppra) 1,000 mg PO BID [facility] Last Admin: 05/08/19 09:11 Dose: 1,000 mg Documented by: Lorazepam (Ativan) 1 mg PO DAILY [facility] Last Admin: 05/08/19 09:12 Dose: 1 mg Documented by: Metformin HCl (Glucophage Xr) 1,000 mg PO BIDDIAB [facility] Last Admin: 05/08/19 08:45 Dose: 1,000 mg Documented by: Ondansetron HCl (Zofran) 4 mg IV Q8H PRN PRN Reason: Nausea And Vomiting Oxybutynin Chloride (Ditropan) 5 mg PO HS [facility] Oxycodone/Acetaminophen (Percocet 5/325) 1 tab PO Q6H PRN PRN Reason: Pain, Moderate (4-6) Last Admin: 05/08/19 04:18 Dose: 1 tab Documented by: Pregabalin (Pregabalin) 300 mg PO BID [facility] Last Admin: 05/08/19 10:25 Dose: 300 mg Documented by: Sertraline HCl (Zoloft) 25 mg PO QDAY [facility] Last Admin: 05/08/19 09:12 Dose: 25 mg Documented by: Sodium Chloride (Sodium Chloride Flush Syringe 10 Ml) 10 ml IV PRN PRN PRN Reason: LINE FLUSH Sodium Chloride (Sodium Chloride Flush Syringe 10 Ml) 10 ml IV BID [facility] Last Admin: 05/08/19 09:20 Dose: 10 ml Documented by: Review of Systems All systems: negative (10 pt ROS performed and negative except for that listed in HPI) Exam Vital Signs Temp Pulse Resp BP Pulse Ox 99.7 F H 83 15 121/55 100 05/07/19 12:13 05/07/19 12:13 05/07/19 12:13 05/07/19 12:13 05/07/19 12:13 Narrative exam: Gen: AAOx3. NAD ENT: No scleral icterus or conjunctival pallor CV: s1, S2+ Resp: even and unlabored Ext: no c/c/e Sacrum: unstageable sacral wound with foul smelling purulent drainage Results - Labs 05/08/19 07:29 05/08/19 04:18 Abnormal lab results 05/07/19 05/07/19 05/07/19 Range/Units 13:00 13:00 13:30 WBC 13.1 H (4.5-11.0) K/mm3 RBC 3.16 L (3.65-5.03) M/mm3 Hgb 8.2 L (10.1-14.3) gm/dl Hct 25.3 L (30.3-42.9) % MCH 26 L (28-32) pg Hardy % (Auto) 7.8 H (0.0-7.3) % Hardy # 1.0 H (0.0-0.8) K/mm3 Seg Neutrophils % 70.1 H (40.0-70.0) % Seg Neutrophils # 9.2 H (1.8-7.7) K/mm3 Potassium 3.4 L (3.6-5.0) mmol/L Chloride (98-107) mmol/L Carbon Dioxide 21 L (22-30) mmol/L BUN 6 L (7-17) mg/dL Creatinine 0.2 L (0.7-1.2) mg/dL Glucose 103 H (65-100) mg/dL POC Glucose (70-105) Total Protein 6.2 L (6.3-8.2) g/dL Albumin 3.0 L (3.9-5) g/dL Urine WBC (Auto) > 182.0 H (0.0-6.0) /HPF 05/07/19 05/08/19 05/08/19 Range/Units 21:54 04:18 07:21 WBC (4.5-11.0) K/mm3 RBC (3.65-5.03) M/mm3 Hgb (10.1-14.3) gm/dl Hct (30.3-42.9) % MCH (28-32) pg Hardy % (Auto) (0.0-7.3) % Hardy # (0.0-0.8) K/mm3 Seg Neutrophils % (40.0-70.0) % Seg Neutrophils # (1.8-7.7) K/mm3 Potassium (3.6-5.0) mmol/L Chloride 109.7 H (98-107) mmol/L Carbon Dioxide 17 L (22-30) mmol/L BUN (7-17) mg/dL Creatinine 0.2 L (0.7-1.2) mg/dL Glucose (65-100) mg/dL POC Glucose 219 H 138 H (70-105) Total Protein 5.9 L (6.3-8.2) g/dL Albumin 2.7 L (3.9-5) g/dL Urine WBC (Auto) (0.0-6.0) /HPF 05/08/19 05/08/19 Range/Units 07:29 11:33 WBC 12.0 H (4.5-11.0) K/mm3 RBC 3.30 L (3.65-5.03) M/mm3 Hgb 8.5 L (10.1-14.3) gm/dl Hct 26.4 L (30.3-42.9) % MCH 26 L (28-32) pg Hardy % (Auto) 7.5 H (0.0-7.3) % Hardy # 0.9 H (0.0-0.8) K/mm3 Seg Neutrophils % 75.6 H (40.0-70.0) % Seg Neutrophils # 9.1 H (1.8-7.7) K/mm3 Potassium (3.6-5.0) mmol/L Chloride (98-107) mmol/L Carbon Dioxide (22-30) mmol/L BUN (7-17) mg/dL Creatinine (0.7-1.2) mg/dL Glucose (65-100) mg/dL POC Glucose 174 H (70-105) Total Protein (6.3-8.2) g/dL Albumin (3.9-5) g/dL Urine WBC (Auto) (0.0-6.0) /HPF Diabetes panel 05/07/19 05/07/19 05/08/19 Range/Units 13:00 13:00 04:18 Sodium 138 140 (137-145) mmol/L Potassium 3.4 L 4.3 D (3.6-5.0) mmol/L Chloride 102.9 109.7 H (98-107) mmol/L Carbon Dioxide 21 L 17 L (22-30) mmol/L BUN 6 L 7 (7-17) mg/dL Creatinine 0.2 L 0.2 L (0.7-1.2) mg/dL Glucose 103 H 66 (65-100) mg/dL Hemoglobin A1c 5.3 (4-6) % Calcium 9.5 8.9 (8.4-10.2) mg/dL AST 13 16 (5-40) units/L ALT 11 11 (7-56) units/L Alkaline Phosphatase 88 81 (35-129) units/L Total Protein 6.2 L 5.9 L (6.3-8.2) g/dL Albumin 3.0 L 2.7 L (3.9-5) g/dL Calcium panel 05/07/19 05/08/19 Range/Units 13:00 04:18 Calcium 9.5 8.9 (8.4-10.2) mg/dL Albumin 3.0 L 2.7 L (3.9-5) g/dL Pituitary panel 05/07/19 05/08/19 Range/Units 13:00 04:18 Sodium 138 140 (137-145) mmol/L Potassium 3.4 L 4.3 D (3.6-5.0) mmol/L Chloride 102.9 109.7 H (98-107) mmol/L Carbon Dioxide 21 L 17 L (22-30) mmol/L BUN 6 L 7 (7-17) mg/dL Creatinine 0.2 L 0.2 L (0.7-1.2) mg/dL Glucose 103 H 66 (65-100) mg/dL Calcium 9.5 8.9 (8.4-10.2) mg/dL Adrenal panel 05/07/19 05/08/19 Range/Units 13:00 04:18 Sodium 138 140 (137-145) mmol/L Potassium 3.4 L 4.3 D (3.6-5.0) mmol/L Chloride 102.9 109.7 H (98-107) mmol/L Carbon Dioxide 21 L 17 L (22-30) mmol/L BUN 6 L 7 (7-17) mg/dL Creatinine 0.2 L 0.2 L (0.7-1.2) mg/dL Glucose 103 H 66 (65-100) mg/dL Calcium 9.5 8.9 (8.4-10.2) mg/dL Total Bilirubin 0.50 0.30 (0.1-1.2) mg/dL AST 13 16 (5-40) units/L ALT 11 11 (7-56) units/L Alkaline Phosphatase 88 81 (35-129) units/L Total Protein 6.2 L 5.9 L (6.3-8.2) g/dL Albumin 3.0 L 2.7 L (3.9-5) g/dL Assessment and Plan 68 yo F with 1. infected/necrotic sacral wound 2. malnutrition 3. hematuria 4. UTI Plan: 1. Reg diet with nutritional supplements 2. Pigskin Trimmer consult 3. Offloading 4. wound cultures obtained 5. wound care consult. Dakins to wound BID 6. IV abx. ID consult 7. Will need surgical debridement - discussed with daughter and consent obtained. Will attempt debridement at bedside. Thank you, please call with questions.
[2019-05-08] MEDS: SODIUM HYPOCHLORITE, DAKIN'S 1/2 STRENGTH (0.25%) 473 ML TOPICAL SOLN TP SCH ×2 (13:43→21:50)
--- NOTE | 2019-05-08 13:45 | Progress Note ---
Assessment and Plan /Sepsis, POA Elevated WBC confusion and UTI IV Abx for now / UTI (urinary tract infection) IV Ceftriaxone and IV Fluids pending cultures /gross hematurea, from UTI - monitor CBC, avoid heparin product /Sacral decubitus ulcer, stage III Wound care consult and Surgery consult requested s/p I and d today - wound cx sent out / CVA, old, hemiparesis PT/OT - consulted / HTN (hypertension) COnt antihypertensives / Diabetes SSI Coverage for now and cont Metformin Check A1c /DVT prophylaxis On Heparin and GI prophylaxis Hospitalist Physical exam: GENERAL: well-developed elderly AAF lying on bed appeared to be in mild discomfort. HEENT: Normocephalic. Atraumatic. No conjunctival congestion or icterus. Patient has moist mucous membranes. NECK: Supple. Trachea midline. CHEST/LUNGS: Clear to auscultated bilaterally, breathing nonlabored. No wheezes crackles or rhonchi. HEART/CARDIOVASCULAR: Regular in rate and rhythm. S1 and S2 positive. ABDOMEN: Abdomen is soft, nontender. Patient has normal bowel sounds. SKIN: There is no rash. Warm and dry. NEURO: No focal motor deficit. Follows command. MUSCULOSKELETAL: No joint effusion or tenderness. EXTRIMITY: No edema, no cyanosis or clubbing. PSYCH: Cooperative. Subjective Date of service: 05/08/19 Interval history: Patient seen and examined. Medical records and medication list reviewed. No acute event overnight noted by the RN. Patient denies any chest pain or difficulty breathing. Patient is tolerating diet. 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 Objective - Constitutional Vitals: Vital Signs - 12hr 05/08/19 05/08/19 05/08/19 02:13 07:09 09:13 Temperature 99.4 F 98.9 F Pulse Rate 61 88 89 Respiratory 16 18 Rate Blood Pressure 114/46 123/44 137/49 O2 Sat by Pulse 98 95 Oximetry 05/08/19 05/08/19 05/08/19 09:14 10:00 13:22 Temperature Pulse Rate 89 Respiratory 18 18 18 Rate Blood Pressure 137/49 O2 Sat by Pulse 95 Oximetry - Labs CBC & Chem 7: 05/08/19 07:29 05/09/19 04:02 Labs: Abnormal lab results 05/07/19 05/07/19 05/07/19 Range/Units 13:00 13:30 21:54 WBC (4.5-11.0) K/mm3 RBC (3.65-5.03) M/mm3 Hgb (10.1-14.3) gm/dl Hct (30.3-42.9) % MCH (28-32) pg Dickenson % (Auto) (0.0-7.3) % Dickenson # (0.0-0.8) K/mm3 Seg Neutrophils % (40.0-70.0) % Seg Neutrophils # (1.8-7.7) K/mm3 Potassium 3.4 L (3.6-5.0) mmol/L Chloride (98-107) mmol/L Carbon Dioxide 21 L (22-30) mmol/L BUN 6 L (7-17) mg/dL Creatinine 0.2 L (0.7-1.2) mg/dL Glucose 103 H (65-100) mg/dL POC Glucose 219 H (70-105) Total Protein 6.2 L (6.3-8.2) g/dL Albumin 3.0 L (3.9-5) g/dL Urine WBC (Auto) > 182.0 H (0.0-6.0) /HPF 05/08/19 05/08/19 05/08/19 Range/Units 04:18 07:21 07:29 WBC 12.0 H (4.5-11.0) K/mm3 RBC 3.30 L (3.65-5.03) M/mm3 Hgb 8.5 L (10.1-14.3) gm/dl Hct 26.4 L (30.3-42.9) % MCH 26 L (28-32) pg Dickenson % (Auto) 7.5 H (0.0-7.3) % Dickenson # 0.9 H (0.0-0.8) K/mm3 Seg Neutrophils % 75.6 H (40.0-70.0) % Seg Neutrophils # 9.1 H (1.8-7.7) K/mm3 Potassium (3.6-5.0) mmol/L Chloride 109.7 H (98-107) mmol/L Carbon Dioxide 17 L (22-30) mmol/L BUN (7-17) mg/dL Creatinine 0.2 L (0.7-1.2) mg/dL Glucose (65-100) mg/dL POC Glucose 138 H (70-105) Total Protein 5.9 L (6.3-8.2) g/dL Albumin 2.7 L (3.9-5) g/dL Urine WBC (Auto) (0.0-6.0) /HPF 05/08/19 Range/Units 11:33 WBC (4.5-11.0) K/mm3 RBC (3.65-5.03) M/mm3 Hgb (10.1-14.3) gm/dl Hct (30.3-42.9) % MCH (28-32) pg Dickenson % (Auto) (0.0-7.3) % Dickenson # (0.0-0.8) K/mm3 Seg Neutrophils % (40.0-70.0) % Seg Neutrophils # (1.8-7.7) K/mm3 Potassium (3.6-5.0) mmol/L Chloride (98-107) mmol/L Carbon Dioxide (22-30) mmol/L BUN (7-17) mg/dL Creatinine (0.7-1.2) mg/dL Glucose (65-100) mg/dL POC Glucose 174 H (70-105) Total Protein (6.3-8.2) g/dL Albumin (3.9-5) g/dL Urine WBC (Auto) (0.0-6.0) /HPF
--- NOTE | 2019-05-08 13:50 | Procedure Note ---
Date of procedure: 05/08/19 Pre-op diagnosis: infected unstageable sacral decubitus ulcer Post-op diagnosis: same Procedure: excisional debridement of infected sacral decubitus ulcer Findings: Time out performed. 4% topical lidocaine was applied to the area of the sacral wound for several minutes. The patient was placed in lateral decubitus position. The wound was cleansed with betadine. The necrotic skin, subcutaneous tissue, and fascia was sharply debrided using a forecep, scissor, and 15 blade. 95% of the necrotic tissue was removed. The wound was cleansed and hemostasis achieved with pressure. The wound was packed with dakins moistened kerlix x 1 piece. This was covered with dry 4x4 gauze, and sacral foam dressing. The wound measured 8cm x 7cm x 2 cm. The patient tolerated the procedure well. All sharps were disposed of appropriately. Anesthesia: local Surgeon: CY FISH Estimated blood loss: minimal Pathology: list (wound cultures) Specimen disposition: to lab Condition: stable Disposition: no change
[2019-05-08] MEDS ORDERED: LIDOCAINE (4%) 40 MG/ML TOPICAL SOLN 50 ML BOTTLE TP ONE (14:00)
[2019-05-08] MEDS ORDERED: MORPHINE 2 MG/1 ML INJ IV ONE (14:00)
[2019-05-08] MEDS ORDERED: LIDOCAINE (1%) 10 MG/1 ML VIAL 20 ML MDV INFILTRATI ONE (14:00)
[2019-05-08] MEDS: cefTRIAXone/NS 2 GM/100 ML 2 GM/100 ML BAG IV SCH (21:48)
[2019-05-08] MEDS: OXYBUTYNIN 5 MG TAB PO SCH (21:49)
[2019-05-09] MEDS ORDERED: VANCOMYCIN 1,250 MG in SODIUM CHLORIDE 0.9% 250ML 250 ML IV SCH
[2019-05-09] MEDS: INSULIN LISPRO 100 UNIT/ML SUB-Q SCH ×5 (00:05→22:52)
[2019-05-09] MEDS: HYDROmorphone 1 MG/1 ML INJ IV PRN (03:09)
[2019-05-09 05:18] LABS: BUN/Creatinine Ratio 35; Blood Urea Nitrogen 7 mg/dL (7-17); Calcium 8.6 mg/dL (8.4-10.2); Hemolysis Index 4; Prealbumin 0.078 g/L (0.200-0.400)
[2019-05-09] MEDS: metFORMIN XR 500MG TAB PO SCH ×2 (08:24→16:25)
[2019-05-09] MEDS: ACETAMINOPHEN 325 MG TAB PO PRN ×2 (08:25→16:26)
[2019-05-09] MEDS: SERTRALINE 25 MG TAB PO SCH (09:25)
[2019-05-09] MEDS: CLOPIDOGREL 75 MG TAB PO SCH (09:25)
[2019-05-09] MEDS: FAMOTIDINE 20 MG TAB PO SCH ×2 (09:25→22:44)
[2019-05-09] MEDS: LORazepam 1 MG TAB PO SCH (09:25)
[2019-05-09] MEDS: levETIRAcetam 500 MG TAB PO SCH ×2 (09:25→22:43)
[2019-05-09] MEDS: CITALOPRAM 10 MG TAB PO SCH (09:25)
[2019-05-09] MEDS: carvediloL 6.25 MG TAB PO SCH ×2 (09:28→22:44)
[2019-05-09] MEDS: amLODIPine 5 MG TAB PO SCH (09:29)
[2019-05-09] MEDS: HEPARIN 5,000 UNIT/1 ML VIAL SUB-Q SCH ×2 (09:32→22:44)
[2019-05-09] MEDS: PREGABALIN 75 MG CAP PO SCH ×2 (11:27→22:43)
--- NOTE | 2019-05-09 12:23 | Progress Note ---
Assessment and Plan 68 yo F s/p excisional debridement of infected sacral decubitus ulcer, POD 1 1. infected/necrotic sacral wound 2. malnutrition 3. hematuria 4. UTI Plan: 1. Reg diet with nutritional supplements 2. Sr. Logistics Analyst consult 3. Offloading 4. wound cultures obtained - prelim gram neg rods 5. wound care consult. Dakins to wound BID 6. IV abx. ID consulted Thank you, please call with questions. Subjective Date of service: 05/09/19 Narrative: Pt seen and examined. No acute complaints. + Fever. Pain controlled. Poor appetite. Objective Vital Signs - 12hr 05/09/19 05/09/19 05/09/19 02:13 02:47 07:16 Temperature 98.8 F 101.2 F H Pulse Rate 85 84 72 Pulse Rate [ Left Brachial] Respiratory 17 18 Rate Blood Pressure 116/42 Blood Pressure 126/43 [Right] O2 Sat by Pulse 98 98 99 Oximetry 05/09/19 05/09/19 05/09/19 08:25 09:26 09:28 Temperature Pulse Rate 95 H 95 H Pulse Rate [ Left Brachial] Respiratory 20 Rate Blood Pressure 111/45 111/45 Blood Pressure [Right] O2 Sat by Pulse 99 Oximetry 05/09/19 05/09/19 10:00 10:15 Temperature 99.9 F H Pulse Rate Pulse Rate [ 95 H Left Brachial] Respiratory 20 Rate Blood Pressure Blood Pressure [Right] O2 Sat by Pulse 99 Oximetry - General physical appearance Narrative Exam: Gen: AAOx3. NAD CV: s1, S2+ resp: even and unlabored Abd: soft Ext: no c/c/e. contracted : clayton with clear urine Sacrum : dressing and packing removed. Wound is clean and dry with some necrotic tissue on wound bed on the right. No drainage or odor. packed with dakins moistened gauze, covered with dry 4x4 gauze and sacral foam dressing. - Labs 05/08/19 07:29 05/09/19 04:02 Diabetes panel 05/09/19 Range/Units 04:02 Sodium 141 (137-145) mmol/L Potassium 3.6 (3.6-5.0) mmol/L Chloride 109.2 H (98-107) mmol/L Carbon Dioxide 18 L (22-30) mmol/L BUN 7 (7-17) mg/dL Creatinine 0.2 L (0.7-1.2) mg/dL Glucose 93 (65-100) mg/dL Calcium 8.6 (8.4-10.2) mg/dL Calcium panel 05/09/19 Range/Units 04:02 Calcium 8.6 (8.4-10.2) mg/dL Pituitary panel 05/09/19 Range/Units 04:02 Sodium 141 (137-145) mmol/L Potassium 3.6 (3.6-5.0) mmol/L Chloride 109.2 H (98-107) mmol/L Carbon Dioxide 18 L (22-30) mmol/L BUN 7 (7-17) mg/dL Creatinine 0.2 L (0.7-1.2) mg/dL Glucose 93 (65-100) mg/dL Calcium 8.6 (8.4-10.2) mg/dL Adrenal panel 05/09/19 Range/Units 04:02 Sodium 141 (137-145) mmol/L Potassium 3.6 (3.6-5.0) mmol/L Chloride 109.2 H (98-107) mmol/L Carbon Dioxide 18 L (22-30) mmol/L BUN 7 (7-17) mg/dL Creatinine 0.2 L (0.7-1.2) mg/dL Glucose 93 (65-100) mg/dL Calcium 8.6 (8.4-10.2) mg/dL
[2019-05-09] MEDS: oxyCODONE /ACETAMINOPHEN 5-325MG TAB PO PRN ×2 (12:26→22:43)
[2019-05-09] MEDS: SODIUM HYPOCHLORITE, DAKIN'S 1/2 STRENGTH (0.25%) 473 ML TOPICAL SOLN TP SCH ×2 (12:27→22:44)
--- NOTE | 2019-05-09 13:53 | Progress Note ---
Assessment and Plan /Sepsis, POA Elevated WBC confusion infected decubitus ulcer and UTI IV Abx for now / UTI (urinary tract infection) cont IV Ceftriaxone and IV Fluids /gross hematurea, from UTI - monitor CBC, avoid heparin product /Infected Sacral decubitus ulcer, stage III Wound care consult and Surgery consult requested s/p I and d - wound cx sent out growing gm -ve rods consulted ID - will follow recommendation /Acute toxic encephalopathy, POA - due to sepsis, resolved / CVA, old, hemiparesis PT/OT - consulted / HTN (hypertension) COnt antihypertensives / Diabetes type 2 SSI Coverage for now and cont Metformin A1c ~ 5 /DVT prophylaxis On Heparin and GI prophylaxis Hospitalist Physical exam: GENERAL: well-developed elderly AAF lying on bed appeared to be in mild discomfort. HEENT: Normocephalic. Atraumatic. No conjunctival congestion or icterus. Patient has moist mucous membranes. NECK: Supple. Trachea midline. CHEST/LUNGS: Clear to auscultated bilaterally, breathing nonlabored. No wheezes crackles or rhonchi. HEART/CARDIOVASCULAR: Regular in rate and rhythm. S1 and S2 positive. ABDOMEN: Abdomen is soft, nontender. Patient has normal bowel sounds. SKIN: There is no rash. Warm and dry. NEURO: Follows command. MUSCULOSKELETAL: No joint effusion or tenderness. EXTRIMITY: No edema, no cyanosis or clubbing. PSYCH: Cooperative. Subjective Date of service: 05/09/19 Interval history: Patient seen and examined. Medical records and medication list reviewed. No acute event overnight noted by the RN. Patient is tolerating diet. Still has gross hematuria but urine color much fish and wildlife biologist than yesterday Continue to complaints of lower back pain and sacral pain Discussed plan of care at bedside with patient . Objective - Constitutional Vitals: Vital Signs - 12hr 05/09/19 05/09/19 05/09/19 02:13 02:47 07:16 Temperature 98.8 F 101.2 F H Pulse Rate 85 84 72 Pulse Rate [ Left Brachial] Respiratory 17 18 Rate Blood Pressure 116/42 Blood Pressure 126/43 [Right] O2 Sat by Pulse 98 98 99 Oximetry 05/09/19 05/09/19 05/09/19 08:25 09:26 09:28 Temperature Pulse Rate 95 H 95 H Pulse Rate [ Left Brachial] Respiratory 20 Rate Blood Pressure 111/45 111/45 Blood Pressure [Right] O2 Sat by Pulse 99 Oximetry 05/09/19 05/09/19 10:00 10:15 Temperature 99.9 F H Pulse Rate Pulse Rate [ 95 H Left Brachial] Respiratory 20 Rate Blood Pressure Blood Pressure [Right] O2 Sat by Pulse 99 Oximetry - Labs CBC & Chem 7: 05/10/19 04:33 05/09/19 04:02 Labs: Abnormal lab results 05/08/19 05/08/19 05/09/19 Range/Units 17:05 20:58 04:02 Chloride 109.2 H (98-107) mmol/L Carbon Dioxide 18 L (22-30) mmol/L Creatinine 0.2 L (0.7-1.2) mg/dL POC Glucose 193 H 139 H (70-105) Prealbumin 0.078 L (0.200-0.400) g/L 05/09/19 05/09/19 Range/Units 07:23 11:34 Chloride (98-107) mmol/L Carbon Dioxide (22-30) mmol/L Creatinine (0.7-1.2) mg/dL POC Glucose 134 H 170 H (70-105) Prealbumin (0.200-0.400) g/L
--- NOTE | 2019-05-09 15:12 | Consultation ---
History of Present Illness - Reason for Consult Consult date: 05/09/19 sacral stage III Requesting physician: CY FISH - History of Present Illness 68 yo female with history of CVA admitted on due to blood in urine and a worsening buttocks sore with foul smelling drainage. Per patient, she was hospitalized for 18 days at outside facility in September 2018 and developed sacral wound. Wound was being managed by home care and started healing. Daughter noted sacral wound becoming larger and draining foul smelling fluid. She is bedbound and has bladder incontinence. Denies fever, chills, urinary symptoms. Reports a dry cough for few days. Reports chronic arthritis with multiple joint pain mainly left wrist/shoulder/knees. In the ED, temp 99.7, HR 83, R 15, BP 121/55. WBC 13. Creat 0.2. UA >182 wbc. Blood culture 05/07/2019 so far negative. Urine culture 05/07/2019 <10K bacteria. She underwent beside debridement on 05/08. Wound culture 05/08/2019 growing GNRs. ID consulted for management of infected sacral decubitus. Review of Systems: Bold if positive, otherwise negative General: fevers HEENT: visual disturbance, diplopia, eye pain Respiratory: cough, sputum, hemoptysis Cardiovascular: chest pain, syncope Gastrointestinal: nausea, vomiting, diarrhea, abdominal pain Genitourinary: dysuria, hematuria, flank pain Musculoskeletal: neck pain, back pain, multiple joint pain, edema Neurologic: headaches, seizures Hematologic: easy bruising or bleeding Endocrine: night sweats, acute weight loss Skin: rash, jaundice, redness Psychiatric: suicidal, homicidal ideation Past History Past Medical History: diabetes, hypertension, stroke, other (chronic pain ) Social history: no significant social history Family history: no significant family history Medications and Allergies Allergies Allergy/AdvReac Type Severity Reaction Status Date / Time Penicillins Allergy Rash Verified 05/07/19 12:13 Sulfa (Sulfonamide Allergy Rash Verified 05/07/19 12:13 Antibiotics) Home Medications Medication Instructions Recorded Confirmed Last Taken Type Metformin HCl [Fortamet ER] 1,000 mg PO BID 02/10/16 02/10/16 1 Day Ago History ~02/09/16 1000 amLODIPine [Norvasc] 5 mg PO DAILY 02/10/16 02/10/16 1 Day Ago History ~02/09/16 5 Clopidogrel [Plavix] 75 mg PO QDAY #30 tablet 02/11/16 Unknown Rx Diclofenac Sodium 50 mg PO TID PRN #15 tablet. 09/03/18 Unknown Rx Acyclovir [Zovirax Tab] 400 mg PO Q8H #21 tab 03/17/19 Unknown Rx levoFLOXacin [Levaquin TAB] 500 mg PO BID #20 tablet 05/05/19 Unknown Rx Citalopram [celeXA] 10 mg PO QDAY 05/07/19 05/07/19 Unknown History Gabapentin [Neurontin] 300 mg PO BID 05/07/19 05/07/19 Unknown History Ibuprofen [Motrin] 800 mg PO Q8HR PRN 05/07/19 05/07/19 Unknown History LORazepam [Lorazepam] 1 mg PO DAILY 05/07/19 05/07/19 Unknown History Oxybutynin [Ditropan] 5 mg PO HS 05/07/19 05/07/19 Unknown History Pregabalin [Lyrica] 300 mg PO BID 05/07/19 05/07/19 Unknown History Sertraline 05/07/19 Unknown History Sertraline [Zoloft] 25 mg PO QDAY 05/07/19 05/07/19 Unknown History carvediloL [Coreg] 6.25 mg PO BID 05/07/19 05/07/19 Unknown History levETIRAcetam [Keppra TAB] 1,000 mg PO BID 05/07/19 05/07/19 Unknown History traMADoL [Ultram] 50 mg PO Q6HR PRN 05/07/19 05/07/19 Unknown History Active Meds: Active Medications Acetaminophen (Tylenol) 650 mg PO Q4H PRN PRN Reason: Pain MILD(1-3)/Fever >100.5/NARAYAN Last Admin: 05/09/19 08:25 Dose: 650 mg Documented by: Amlodipine Besylate (Amlodipine) 5 mg PO DAILY [facility] Last Admin: 05/09/19 09:29 Dose: Not Given Documented by: Carvedilol (Coreg) 6.25 mg PO BID [facility] Last Admin: 05/09/19 09:28 Dose: 6.25 mg Documented by: Citalopram Hydrobromide (Celexa) 10 mg PO QDAY [facility] Last Admin: 05/09/19 09:25 Dose: 10 mg Documented by: Clopidogrel Bisulfate (Plavix) 75 mg PO QDAY [facility] Last Admin: 05/09/19 09:25 Dose: 75 mg Documented by: Diclofenac Sodium (Voltaren) 50 mg PO TID PRN PRN Reason: Pain , Severe (7-10) Famotidine (Pepcid) 20 mg PO BID [facility] Last Admin: 05/09/19 09:25 Dose: 20 mg Documented by: Heparin Sodium (Porcine) (Heparin) 5,000 unit SUB-Q Q12HR [facility] Last Admin: 05/09/19 09:32 Dose: 5,000 unit Documented by: Hydromorphone HCl (Dilaudid) 0.5 mg IV Q3H PRN PRN Reason: Pain , Severe (7-10) Last Admin: 05/09/19 03:09 Dose: 0.5 mg Documented by: Ceftriaxone Sodium (Rocephin/Ns 2 Gm/100 Ml) 2 gm in 100 mls @ 200 mls/hr IV Q24H [facility]; Protocol Last Admin: 05/08/19 21:48 Dose: 200 mls/hr Documented by: Vancomycin HCl 1,250 mg/ (Sodium Chloride) 275 mls @ 166.667 mls/hr IV Q24H [facility] Last Admin: 05/09/19 00:05 Dose: 166.667 mls/hr Documented by: Ibuprofen (Ibuprofen) 800 mg PO Q8H PRN PRN Reason: Pain, Moderate (4-6) Last Admin: 05/08/19 09:14 Dose: 800 mg Documented by: Insulin Human Lispro (Humalog) 0 unit SUB-Q ACHS [facility]; Protocol Last Admin: 05/09/19 12:27 Dose: 2 unit Documented by: Levetiracetam (Keppra) 1,000 mg PO BID [facility] Last Admin: 05/09/19 09:25 Dose: 1,000 mg Documented by: Lorazepam (Ativan) 1 mg PO DAILY [facility] Last Admin: 05/09/19 09:25 Dose: 1 mg Documented by: Metformin HCl (Glucophage Xr) 1,000 mg PO BIDDIAB [facility] Last Admin: 05/09/19 08:24 Dose: 1,000 mg Documented by: Ondansetron HCl (Zofran) 4 mg IV Q8H PRN PRN Reason: Nausea And Vomiting Oxybutynin Chloride (Ditropan) 5 mg PO HS [facility] Last Admin: 05/08/19 21:49 Dose: 5 mg Documented by: Oxycodone/Acetaminophen (Percocet 5/325) 1 tab PO Q6H PRN PRN Reason: Pain, Moderate (4-6) Last Admin: 05/09/19 12:26 Dose: 1 tab Documented by: Pregabalin (Pregabalin) 300 mg PO BID [facility] Last Admin: 05/09/19 11:27 Dose: 300 mg Documented by: Sertraline HCl (Zoloft) 25 mg PO QDAY [facility] Last Admin: 05/09/19 09:25 Dose: 25 mg Documented by: Sodium Chloride (Sodium Chloride Flush Syringe 10 Ml) 10 ml IV PRN PRN PRN Reason: LINE FLUSH Sodium Chloride (Sodium Chloride Flush Syringe 10 Ml) 10 ml IV BID [facility] Last Admin: 05/09/19 09:28 Dose: 10 ml Documented by: Sodium Hypochlorite (Dakin's Half Strength) 1 applic TP BID [facility] Last Admin: 05/09/19 12:27 Dose: 1 applicatio Documented by: Physical Examination - Physical Exam Narrative exam: Constitutional: Alert, cooperative. No acute distress Head, Ears, Nose: Normocephalic, atraumatic. External ears, nose normal Eyes: Conjunctivae/corneas clear. No icterus. No ptosis. Neck: Supple, no meningeal signs Oral: dentition fair, no thrush Cardiovascular: S1, S2 normal. L permacath Respiratory: Good air entry, clear to auscultation bilaterally GI: Soft, non-tender; bowel sounds normal. No peritoneal signs. Musculoskeletal: +florian wrist swelling and tenderness Skin: +sacral wound covered with dressings Hem/Lymphatic: No palpable cervical or supraclavicular nodes. No lymphangitis Psych: Mood ok. Affect normal Neurological: Awake, alert, oriented. No gross abnormality - Constitutional Vitals: Vital Signs Temp Pulse Resp BP Pulse Ox 100.2 F H 96 H 18 120/53 96 05/09/19 13:50 05/09/19 13:50 05/09/19 13:50 05/09/19 13:50 05/09/19 13:50 Temperature -Last 24 Hours Temperature 100.2 F Temperature 99.9 F Temperature 101.2 F Temperature 98.8 F Temperature 99.7 F Results - Labs CBC & Chem 7: 05/08/19 07:29 05/09/19 04:02 Labs: Abnormal lab results 05/08/19 05/08/19 05/09/19 Range/Units 17:05 20:58 04:02 Chloride 109.2 H (98-107) mmol/L Carbon Dioxide 18 L (22-30) mmol/L Creatinine 0.2 L (0.7-1.2) mg/dL POC Glucose 193 H 139 H (70-105) Prealbumin 0.078 L (0.200-0.400) g/L 05/09/19 05/09/19 Range/Units 07:23 11:34 Chloride (98-107) mmol/L Carbon Dioxide (22-30) mmol/L Creatinine (0.7-1.2) mg/dL POC Glucose 134 H 170 H (70-105) Prealbumin (0.200-0.400) g/L Assessment and Plan Cultures: Blood culture 05/07/2019 so far negative. Urine culture 05/07/2019 <10K bacteria. Wound culture 05/08/2019 GNRs. Assessment: 68 yo female with history of CVA admitted on due to blood in urine and a worsening buttocks sore with foul smelling drainage: 1) Sepsis: present on admission with low grade fever and leukocytosis; likely due to infected sacral decubitus and UTI. 2) Infected sacral decubitus: she was hospitalized for 18 days at outside facility in September 2018 and developed sacral wound. She is bedbound and has bladder incontinence. S/p beside debridement on 05/08. Wound culture +GNRs 3) Presumed UTI: UA >182 wbc. Recs: mainstay is offloading and wound care request pelvic CT eval for osteomyelitis/deep abscess stop ceftriaxone and vancomycin start cefepime 2 gm IV q 8 hour for now add metronidazole IV duration of IV abx probably 2 weeks, if osteomyelitis seen 6 weeks Will follow. Veronica Garibay MD Infectious Diseases Mid Level Game Design[employer] [facility] ([facility]) M [phone] O [phone]
[2019-05-09] MEDS: CEFEPIME/NS 2 GM/100 ML 2 GM/100 ML BAG IV SCH ×2 (16:25→22:42)
[2019-05-09] MEDS: metroNIDAZOLE/NS 500 MG/100 ML 500 MG/100 ML BAG IV SCH ×2 (16:58→22:42)
[2019-05-09] MEDS: OXYBUTYNIN 5 MG TAB PO SCH (22:43)
--- NOTE | 2019-05-09 23:04 | Cat Scan Report ---
CT pelvis w con INDICATION / CLINICAL INFORMATION: eval for sacral osteomyelitis/abscess. TECHNIQUE: Axial CT images were obtained after injection of IV contrast using CTA protocol. 3 plane MIP / 3D rec onstructions were produced. All CT scans at this location are performed using CT dose reduction for A ADY by means of automated exposure control. COMPARISON: CT pelvis 06/20/2017. FINDINGS: Evaluation of the soft tissues of the pelvis demonstrates a Herrera catheter within the bladder which d emonstrates diffuse symmetric thickening. Negative for pelvic mass, adenopathy or fluid collection. T he bowel is not dilated or thickened. There is breakdown of the soft tissues overlying the sacrum. There is one small focus of early lytic change involving the inferior right sacrum (series #[id number], image 93). Negative for soft tissue abscess. Degenerative changes noted at the lower lumbar spine and hips. IMPRESSION: 1. Sacral decubitus with early osteomyelitis. 2. Negative for abscess. Signer Name: Jaime Pabon MD Signed: 05/09/2019 11:00 PM Workstation Name: [id number]
[2019-05-10 05:17] LABS: Basophils # (Auto) 0.1 K/mm3 (0.0-0.1); Basophils % (Auto) 0.8 % (0.0-1.8); Eosinophils # (Auto) 0.5 K/mm3 (0.0-0.4); Eosinophils % (Auto) 5.1 % (0.0-4.3); Hematocrit 23.1 % (30.3-42.9); Hemoglobin 7.6 gm/dl (10.1-14.3); Lymphocytes # (Auto) 2.3 K/mm3 (1.2-5.4); Lymphocytes % (Auto) 24.6 % (13.4-35.0); Mean Corpuscular HGB Conc 33 % (30-34); Mean Corpuscular Volume 81 fl (79-97); Monocytes # (Auto) 0.7 K/mm3 (0.0-0.8); Monocytes % (Auto) 7.8 % (0.0-7.3); Platelet Count 369 K/mm3 (140-440); Red Blood Count 2.88 M/mm3 (3.65-5.03); Red Cell Distribution Width 14.9 % (13.2-15.2)
[2019-05-10] MEDS: metroNIDAZOLE/NS 500 MG/100 ML 500 MG/100 ML BAG IV SCH ×3 (05:54→21:29)
[2019-05-10] MEDS: CEFEPIME/NS 2 GM/100 ML 2 GM/100 ML BAG IV SCH ×3 (05:59→22:20)
[2019-05-10] MEDS: oxyCODONE /ACETAMINOPHEN 5-325MG TAB PO PRN ×3 (06:00→21:27)
[2019-05-10] MEDS: INSULIN LISPRO 100 UNIT/ML SUB-Q SCH ×4 (08:04→22:21)
[2019-05-10] MEDS: metFORMIN XR 500MG TAB PO SCH ×2 (08:05→17:02)
[2019-05-10] MEDS: CITALOPRAM 10 MG TAB PO SCH (09:18)
[2019-05-10] MEDS: FAMOTIDINE 20 MG TAB PO SCH ×2 (09:18→21:27)
[2019-05-10] MEDS: SERTRALINE 25 MG TAB PO SCH (09:18)
[2019-05-10] MEDS: LORazepam 1 MG TAB PO SCH (09:18)
[2019-05-10] MEDS: PREGABALIN 75 MG CAP PO SCH ×2 (09:18→21:27)
[2019-05-10] MEDS: levETIRAcetam 500 MG TAB PO SCH ×2 (09:18→21:27)
[2019-05-10] MEDS: HEPARIN 5,000 UNIT/1 ML VIAL SUB-Q SCH ×2 (09:19→21:26)
[2019-05-10] MEDS: CLOPIDOGREL 75 MG TAB PO SCH (09:19)
[2019-05-10] MEDS: amLODIPine 5 MG TAB PO SCH (09:20)
[2019-05-10] MEDS: carvediloL 6.25 MG TAB PO SCH ×2 (09:20→21:30)
[2019-05-10] MEDS: SODIUM HYPOCHLORITE, DAKIN'S 1/2 STRENGTH (0.25%) 473 ML TOPICAL SOLN TP SCH ×2 (11:31→21:30)
--- NOTE | 2019-05-10 12:49 | Progress Note ---
Assessment and Plan 68 yo F s/p excisional debridement of infected sacral decubitus ulcer - stage 4, POD 2 1. infected/necrotic sacral wound with osteomyelitis 2. malnutrition 3. hematuria 4. UTI CT scan Pelvis - early osteomyelitis of sacrum Plan: 1. Reg diet with nutritional supplements 2. Engine Testing Supervisor on board 3. Offloading 4. wound cultures obtained - ecoli, final pending 5. show host or hostess on board. Dakins to wound BID. Will evaluate for wound vac and further debridement as outpatient 6. IV abx - final abx recs per ID. Patient may follow up in wound care clinic on discharge. Plan discussed with patient and daughter. Will s/o. Thank you, please call with questions. Subjective Date of service: 05/10/19 Narrative: Pt seen and examined. c/o pain at the location of the sacral wound. No f/c. Tolerating a diet with poor appetite Objective Vital Signs - 12hr 05/10/19 05/10/19 05/10/19 02:00 08:23 09:20 Temperature 99.4 F 99.0 F Pulse Rate 62 80 80 Pulse Rate [ Left Brachial] Respiratory 18 18 Rate Blood Pressure 115/46 110/47 110/47 O2 Sat by Pulse 98 97 Oximetry 05/10/19 05/10/19 10:00 11:47 Temperature Pulse Rate Pulse Rate [ 80 Left Brachial] Respiratory 18 18 Rate Blood Pressure O2 Sat by Pulse 97 Oximetry - Labs 05/10/19 04:33 05/09/19 04:02
[2019-05-10] MEDS: ACETAMINOPHEN 325 MG TAB PO PRN (13:29)
--- NOTE | 2019-05-10 15:10 | Progress Note ---
Assessment and Plan /gross hematurea, from UTI - resolved - monitor CBC, avoid heparin product /Infected Sacral decubitus ulcer, stage iv with sacral osteomylitis Wound care consult and Surgery consult requested s/p I and d on 05/08 - wound cx sent out growing gm -ve rods consulted ID - continue cefepime 2 gm IV q 8 hour for now and metronidazole IV inpatient discharge on ceftriaxone 2 gm IV qday for 6 weeks till 06/19/2019. Orders sent to ed case manager. /Sepsis, POA Elevated WBC confusion infected decubitus ulcer with osteomylitis and UTI IV Abx for now / UTI (urinary tract infection) cont IV Ceftriaxone and IV Fluids /Acute toxic encephalopathy, POA - due to sepsis, resolved / CVA, old, right hemiparesis PT/OT - consulted / HTN (hypertension) COnt antihypertensives / Diabetes type 2 SSI Coverage for now and cont Metformin A1c ~ 5 /Anemia of CD - Monitor h/h /Physical debility with moderate PCM - PT/ nutrition consulted - follow recommendation /DVT prophylaxis On Heparin and GI prophylaxis Brief History: 68 yo female with history of CVA admitted on due to blood in urine and a worsening buttocks sore with foul smelling drainage. Per patient, she was hospitalized for 18 days at outside facility in September 2018 and developed sacral wound. In the ED, temp 99.7, HR 83, R 15, BP 121/55. WBC 13. Creat 0.2. UA >182 wbc. Blood culture 05/07/2019 so far negative. Urine culture 05/07/2019 <10K gail teria. She underwent beside debridement on 05/08. Wound culture 05/08/[address] suggestive of osteo, will need 6 weeks of abx. Hospitalist Physical exam: GENERAL: well-developed elderly AAF lying on bed appeared to be in mild discomfort. HEENT: Normocephalic. Atraumatic. No conjunctival congestion or icterus. Patient has moist mucous membranes. NECK: Supple. Trachea midline. CHEST/LUNGS: Clear to auscultated bilaterally, breathing nonlabored. No wheezes crackles or rhonchi. HEART/CARDIOVASCULAR: Regular in rate and rhythm. S1 and S2 positive. ABDOMEN: Abdomen is soft, nontender. Patient has normal bowel sounds. SKIN: There is no rash. Warm and dry. NEURO: Follows command. right sided weakness MUSCULOSKELETAL: No joint effusion or tenderness. sacral wound with dressing EXTRIMITY: No edema, no cyanosis or clubbing. PSYCH: Cooperative. Subjective Date of service: 05/10/19 Interval history: Patient seen and examined. Medical records and medication list reviewed. No acute event overnight noted by the RN. Patient is tolerating diet. no gross hematuria Continue to complaints of lower back pain and sacral pain Discussed plan of care at bedside with patient . Objective - Constitutional Vitals: Vital Signs - 12hr 05/10/19 05/10/19 05/10/19 08:23 09:20 10:00 Temperature 99.0 F Pulse Rate 80 80 Pulse Rate [ 80 Left Brachial] Respiratory 18 18 Rate Blood Pressure 110/47 110/47 O2 Sat by Pulse 97 97 Oximetry 05/10/19 05/10/19 11:47 13:29 Temperature Pulse Rate Pulse Rate [ Left Brachial] Respiratory 18 18 Rate Blood Pressure O2 Sat by Pulse Oximetry - Labs CBC & Chem 7: 05/10/19 04:33 05/09/19 04:02 Labs: Abnormal lab results 05/09/19 05/09/19 05/10/19 Range/Units 16:17 17:42 04:33 RBC 2.88 L (3.65-5.03) M/mm3 Hgb 7.6 L (10.1-14.3) gm/dl Hct 23.1 L (30.3-42.9) % MCH 26 L (28-32) pg [place] % (Auto) 7.8 H (0.0-7.3) % Eos % (Auto) 5.1 H (0.0-4.3) % Eos # 0.5 H (0.0-0.4) K/mm3 POC Glucose 143 H (70-105) C-Reactive Protein 6.40 H (0.00-1.30) mg/dL 05/10/19 05/10/19 Range/Units 07:53 11:09 RBC (3.65-5.03) M/mm3 Hgb (10.1-14.3) gm/dl Hct (30.3-42.9) % MCH (28-32) pg [facility] % (Auto) (0.0-7.3) % Eos % (Auto) (0.0-4.3) % Eos # (0.0-0.4) K/mm3 POC Glucose 131 H 205 H (70-105) C-Reactive Protein (0.00-1.30) mg/dL
--- NOTE | 2019-05-10 17:17 | Progress Note ---
Assessment and Plan Cultures: Blood culture 05/07/2019 so far negative. Urine culture 05/07/2019 <10K bacteria. Wound culture 05/08/2019 E coli pansensitive Assessment: 68 yo female with history of CVA admitted on due to blood in urine and a worsening buttocks sore with foul smelling drainage: 1) Sepsis: fever trending down and leukocytosis resolved; likely due to infected sacral decubitus and UTI. 2) Infected sacral decubitus with osteomyelitis: she was hospitalized for 18 days at outside facility in September 2018 and developed sacral wound. She is bedbound and has bladder incontinence. S/p beside debridement on 05/08. Wound culture E coli. CT pelvis with early sacral osteomyelitis. 3) Presumed UTI: UA >182 wbc. Recs: mainstay is offloading and wound care continue cefepime 2 gm IV q 8 hour for now and metronidazole IV inpatient ok to discharge on ceftriaxone 2 gm IV qday for 6 weeks till 06/19/2019. Orders sent to pillowcase maker. Consider LTAC. Will follow. Veronica Garibay MD Infectious Diseases Senior Escrow Officer [facility] ([facility]) M [phone] O [phone] Subjective Date of service: 05/10/19 Principal diagnosis: sacral wound Interval history: Feels ok no complaints. no fever. Objective - Exam Narrative Exam: Constitutional: Alert, cooperative. No acute distress Head, Ears, Nose: Normocephalic, atraumatic. External ears, nose normal Eyes: Conjunctivae/corneas clear. No icterus. No ptosis. Neck: Supple, no meningeal signs Oral: dentition fair, no thrush Cardiovascular: S1, S2 normal. L permacath Respiratory: Good air entry, clear to auscultation bilaterally GI: Soft, non-tender; bowel sounds normal. No peritoneal signs. Musculoskeletal: +florian wrist swelling and tenderness Skin: +sacral wound covered with dressings Hem/Lymphatic: No palpable cervical or supraclavicular nodes. No lymphangitis Psych: Mood ok. Affect normal Neurological: Awake, alert, oriented. No gross abnormality - Constitutional Vitals: Vital Signs Temp Pulse Resp BP Pulse Ox 99.0 F 80 18 110/47 97 05/10/19 08:23 05/10/19 10:00 05/10/19 13:29 05/10/19 09:20 05/10/19 10:00 Temperature -Last 24 Hours Temperature 99.0 F Temperature 99.4 F Temperature 99.2 F Temperature 99.2 F - Labs CBC & Chem 7: 05/10/19 04:33 05/09/19 04:02 Labs: Abnormal lab results 05/09/19 05/10/19 05/10/19 Range/Units 17:42 04:33 07:53 RBC 2.88 L (3.65-5.03) M/mm3 Hgb 7.6 L (10.1-14.3) gm/dl Hct 23.1 L (30.3-42.9) % MCH 26 L (28-32) pg [place] % (Auto) 7.8 H (0.0-7.3) % Eos % (Auto) 5.1 H (0.0-4.3) % Eos # 0.5 H (0.0-0.4) K/mm3 POC Glucose 131 H (70-105) C-Reactive Protein 6.40 H (0.00-1.30) mg/dL 05/10/19 05/10/19 Range/Units 11:09 16:43 RBC (3.65-5.03) M/mm3 Hgb (10.1-14.3) gm/dl Hct (30.3-42.9) % MCH (28-32) pg [place] % (Auto) (0.0-7.3) % Eos % (Auto) (0.0-4.3) % Eos # (0.0-0.4) K/mm3 POC Glucose 205 H 121 H (70-105) C-Reactive Protein (0.00-1.30) mg/dL
[2019-05-10] MEDS: OXYBUTYNIN 5 MG TAB PO SCH (21:27)
[2019-05-11] MEDS: CEFEPIME/NS 2 GM/100 ML 2 GM/100 ML BAG IV SCH ×3 (05:27→21:38)
[2019-05-11] MEDS: metroNIDAZOLE/NS 500 MG/100 ML 500 MG/100 ML BAG IV SCH ×3 (05:28→22:32)
[2019-05-11] MEDS: INSULIN LISPRO 100 UNIT/ML SUB-Q SCH ×4 (07:30→22:51)
[2019-05-11 07:59] LABS: Hematocrit 21.9 % (30.3-42.9); Hemoglobin 7.2 gm/dl (10.1-14.3)
[2019-05-11] MEDS: amLODIPine 5 MG TAB PO SCH (10:00)
[2019-05-11] MEDS: carvediloL 6.25 MG TAB PO SCH (10:00)
[2019-05-11] MEDS: PREGABALIN 75 MG CAP PO SCH ×2 (10:11→21:37)
[2019-05-11] MEDS: SERTRALINE 25 MG TAB PO SCH (10:11)
[2019-05-11] MEDS: LORazepam 1 MG TAB PO SCH (10:11)
[2019-05-11] MEDS: FAMOTIDINE 20 MG TAB PO SCH ×2 (10:11→21:38)
[2019-05-11] MEDS: levETIRAcetam 500 MG TAB PO SCH ×2 (10:12→21:38)
[2019-05-11] MEDS: CITALOPRAM 10 MG TAB PO SCH (10:12)
[2019-05-11] MEDS: CLOPIDOGREL 75 MG TAB PO SCH (10:12)
[2019-05-11] MEDS: HEPARIN 5,000 UNIT/1 ML VIAL SUB-Q SCH ×2 (10:12→21:39)
[2019-05-11] MEDS: SODIUM HYPOCHLORITE, DAKIN'S 1/2 STRENGTH (0.25%) 473 ML TOPICAL SOLN TP SCH ×2 (10:13→21:38)
[2019-05-11] MEDS: HYDROmorphone 1 MG/1 ML INJ IV PRN ×2 (10:14→18:53)
[2019-05-11] MEDS: metFORMIN XR 500MG TAB PO SCH ×2 (10:23→18:46)
[2019-05-11] MEDS: ONDANSETRON 4 MG/2 ML INJ IV PRN ×2 (10:28→20:31)
--- NOTE | 2019-05-11 11:41 | Progress Note ---
Assessment and Plan Cultures: Blood culture 05/07/2019 so far negative. Urine culture 05/07/2019 <10K bacteria. Wound culture 05/08/2019 E coli pansensitive Assessment: 68 yo female with history of CVA admitted on due to blood in urine and a worsening buttocks sore with foul smelling drainage: 1) Sepsis:resolved; likely due to infected sacral decubitus and UTI. 2) Infected sacral decubitus with osteomyelitis: she was hospitalized for 18 days at outside facility in September 2018 and developed sacral wound. She is bedbound and has bladder incontinence. S/p beside debridement on 05/08. Wound culture E coli. CT pelvis with early sacral osteomyelitis. 3) Presumed UTI: UA >182 wbc. Recs: mainstay is offloading and wound care continue cefepime 2 gm IV q 8 hour stop metronidazole ok to discharge on ceftriaxone 2 gm IV qday for 6 weeks till 06/19/2019. Orders sent to caseworker intake. Consider LTAC. Ok to d/c from ID stand point Will follow. Veronica Garibay MD Infectious Diseases [employer] [facility] ([facility]) M [phone] O [phone] Subjective Date of service: 05/11/19 Principal diagnosis: sacral wound Interval history: Feels ok no complaints. no fever. Objective - Exam Narrative Exam: Constitutional: Alert, cooperative. No acute distress Head, Ears, Nose: Normocephalic, atraumatic. External ears, nose normal Eyes: Conjunctivae/corneas clear. No icterus. No ptosis. Neck: Supple, no meningeal signs Oral: dentition fair, no thrush Cardiovascular: S1, S2 normal. L permacath Respiratory: Good air entry, clear to auscultation bilaterally GI: Soft, non-tender; bowel sounds normal. No peritoneal signs. Musculoskeletal: +florian wrist swelling and tenderness Skin: +sacral wound covered with dressings Hem/Lymphatic: No palpable cervical or supraclavicular nodes. No lymphangitis Psych: Mood ok. Affect normal Neurological: Awake, alert, oriented. No gross abnormality - Constitutional Vitals: Vital Signs Temp Pulse Resp BP Pulse Ox 99.6 F 64 20 95/38 98 05/11/19 07:09 05/11/19 07:09 05/11/19 07:09 05/11/19 07:09 05/11/19 07:09 Temperature -Last 24 Hours Temperature 99.6 F Temperature 98.4 F Temperature 98.3 F Temperature 99.7 F - Labs CBC & Chem 7: 05/11/19 07:15 05/09/19 04:02 Labs: Abnormal lab results 05/10/19 05/10/19 05/11/19 Range/Units 16:43 22:30 07:15 Hgb 7.2 L (10.1-14.3) gm/dl Hct 21.9 L (30.3-42.9) % POC Glucose 121 H 149 H (70-105) 05/11/19 Range/Units 11:27 Hgb (10.1-14.3) gm/dl Hct (30.3-42.9) % POC Glucose 151 H (70-105)
--- NOTE | 2019-05-11 13:18 | Progress Note ---
Assessment and Plan Assessment and plan: /gross hematurea, from UTI - resolved - monitor CBC, avoid heparin product 68 yo female with history of CVA admitted on due to blood in urine and a worsening buttocks sore with foul smelling drainage. Per patient, she was hospitalized for 18 days at outside facility in September 2018 and developed sacral wound. In the ED, temp 99.7, HR 83, R 15, BP 121/55. WBC 13. Creat 0.2. UA >182 wbc. Blood culture 05/07/2019 so far negative. Urine culture 05/07/2019 <10K bacteria. She underwent beside debridement on 05/08. Wound culture 05/08/[address] suggestive of osteo, will need 6 weeks of abx. /Infected Sacral decubitus ulcer, stage iv with sacral osteomylitis Wound care and Surgery consulted s/p I and D on 05/08 - wound cx positive for E. Coli consulted ID - continue cefepime 2 gm IV q 8 hour for now and metronidazole IV inpatient for discharge on ceftriaxone 2 gm IV qday for 6 weeks till 06/19/2019. pt will need placement for IV antibiotic infusion /Sepsis 2/2 infected decubitus ulcer with osteomyelitis and UTI cont IV Abx / UTI (urinary tract infection) cont IV Abx urine culture neg /Acute toxic encephalopathy - due to sepsis, resolved / H/o CVA with residual right hemiparesis cont plavix PT/OT following: STEPHANIE recommended / HTN (hypertension) BP trending down, will monitor will hold her amlodipine and coreg / DM2 type 2, controlled SSI Coverage for now and cont Metformin A1c ~ 5 /Anemia of CD -willl monitor H/H and transfuse for hb<7 Seizure disorder cont keppra Urinary incontinence cont oxybytunin Dementia without beh dist cont home meds /Physical debility with moderate PCM - PT/ nutrition consulted - follow recommendation /DVT prophylaxis On Heparin Disp: awaiting placement for rehab and antibiotic infusion, CM following History Interval history: Pt complained of buttock pain Hospitalist Physical - Constitutional Vitals: Temp Pulse Resp BP Pulse Ox 99.6 F 64 20 95/38 98 05/11/19 07:09 05/11/19 07:09 05/11/19 07:09 05/11/19 07:09 05/11/19 07:09 General appearance: Present: no acute distress, well-nourished - EENT Eyes: Present: PERRL, EOM intact ENT: hearing intact, clear oral mucosa - Neck Neck: Present: supple - Respiratory Respiratory effort: normal Respiratory: bilateral: CTA - Cardiovascular Rhythm: regular Heart Sounds: Present: S1 & S2 - Extremities Extremities: No edema - Abdominal General gastrointestinal: soft, non-tender, normal bowel sounds - Psychiatric Psychiatric: cooperative - Neurologic Neurologic: moves all extremities Results - Labs CBC & Chem 7: 05/11/19 07:15 05/09/19 04:02 Labs: Laboratory Last Values WBC 9.4 K/mm3 (4.5-11.0) 05/10/19 04:33 RBC 2.88 M/mm3 (3.65-5.03) L 05/10/19 04:33 Hgb 7.2 gm/dl (10.1-14.3) L 05/11/19 07:15 Hct 21.9 % (30.3-42.9) L 05/11/19 07:15 MCV 81 fl (79-97) 05/10/19 04:33 MCH 26 pg (28-32) L 05/10/19 04:33 MCHC 33 % (30-34) 05/10/19 04:33 RDW 14.9 % (13.2-15.2) 05/10/19 04:33 Plt Count 369 K/mm3 (140-440) 05/10/19 04:33 Lymph % (Auto) 24.6 % (13.4-35.0) 05/10/19 04:33 [place] % (Auto) 7.8 % (0.0-7.3) H 05/10/19 04:33 Eos % (Auto) 5.1 % (0.0-4.3) H 05/10/19 04:33 Baso % (Auto) 0.8 % (0.0-1.8) 05/10/19 04:33 Lymph # 2.3 K/mm3 (1.2-5.4) 05/10/19 04:33 [place] # 0.7 K/mm3 (0.0-0.8) 05/10/19 04:33 Eos # 0.5 K/mm3 (0.0-0.4) H 05/10/19 04:33 Baso # 0.1 K/mm3 (0.0-0.1) 05/10/19 04:33 Seg Neutrophils % 61.7 % (40.0-70.0) 05/10/19 04:33 Seg Neutrophils # 5.8 K/mm3 (1.8-7.7) 05/10/19 04:33 Sodium 141 mmol/L (137-145) 05/09/19 04:02 Potassium 3.6 mmol/L (3.6-5.0) 05/09/19 04:02 Chloride 109.2 mmol/L (98-107) H 05/09/19 04:02 Carbon Dioxide 18 mmol/L (22-30) L 05/09/19 04:02 Anion Gap 17 mmol/L 05/09/19 04:02 BUN 7 mg/dL (7-17) 05/09/19 04:02 Creatinine 0.2 mg/dL (0.7-1.2) L 05/09/19 04:02 Estimated GFR > 60 ml/min 05/09/19 04:02 BUN/Creatinine Ratio 35 % 05/09/19 04:02 Glucose 93 mg/dL (65-100) 05/09/19 04:02 POC Glucose 151 (70-105) H 05/11/19 11:27 Hemoglobin A1c 5.3 % (4-6) 05/07/19 13:00 Lactic Acid 0.90 mmol/L (0.7-2.0) 05/07/19 13:00 Calcium 8.6 mg/dL (8.4-10.2) 05/09/19 04:02 Total Bilirubin 0.30 mg/dL (0.1-1.2) 05/08/19 04:18 AST 16 units/L (5-40) 05/08/19 04:18 ALT 11 units/L (7-56) 05/08/19 04:18 Alkaline Phosphatase 81 units/L (35-129) 05/08/19 04:18 C-Reactive Protein 6.40 mg/dL (0.00-1.30) H 05/09/19 17:42 Total Protein 5.9 g/dL (6.3-8.2) L 05/08/19 04:18 Albumin 2.7 g/dL (3.9-5) L 05/08/19 04:18 Albumin/Globulin Ratio 0.8 % 05/08/19 04:18 Prealbumin 0.078 g/L (0.200-0.400) L 05/09/19 04:02 Urine Color Red (Yellow) 05/07/19 13:30 Urine Turbidity Turbid (Clear) 05/07/19 13:30 Urine pH TNR 05/07/19 13:30 Ur Specific [place] TNR 05/07/19 13:30 Urine Protein TNR 05/07/19 13:30 Urine Glucose (UA) TNR 05/07/19 13:30 Urine Ketones TNR 05/07/19 13:30 Urine Blood TNR 05/07/19 13:30 Urine Nitrite TNR 05/07/19 13:30 Ur Reducing Substances Not Reportable 05/07/19 13:30 Urine Bilirubin TNR 05/07/19 13:30 Urine Ictotest TNR 05/07/19 13:30 Urine Urobilinogen TNR 05/07/19 13:30 Ur Leukocyte Esterase TNR 05/07/19 13:30 Urine WBC (Auto) > 182.0 /HPF (0.0-6.0) H 05/07/19 13:30 Urine RBC (Auto) 2.0 /HPF (0.0-6.0) 05/07/19 13:30 U Epithel Cells (Auto) 11.0 /HPF (0-13.0) 05/07/19 13:30 Urine Bacteria (Auto) 2+ /HPF (Negative) 05/07/19 13:30 Urine Mucus Few /HPF 05/07/19 13:30 Active Medications - Current Medications Current Medications: Generic Name Dose Route Start Last Admin Trade Name Freq PRN Reason Stop Dose Admin Acetaminophen 650 mg 05/07/19 16:08 05/10/19 13:29 Tylenol PO 650 mg Q4H PRN Administration Pain MILD(1-3)/Fever >100.5/NARAYAN Amlodipine Besylate 5 mg 05/08/19 10:00 05/11/19 10:00 Amlodipine PO Not Given DAILY [facility] Carvedilol 6.25 mg 05/07/19 23:00 05/11/19 10:00 Coreg PO Not Given BID JORDON Citalopram Hydrobromide 10 mg 05/08/19 10:00 05/11/19 10:12 Celexa PO 10 mg QDAY JORDON Administration Clopidogrel Bisulfate 75 mg 05/08/19 10:00 05/11/19 10:12 Plavix PO 75 mg QDAY JORDON Administration Diclofenac Sodium 50 mg 05/07/19 22:21 Voltaren PO TID PRN Pain, Moderate (4-6) Famotidine 20 mg 05/08/19 10:00 05/11/19 10:11 Pepcid PO 20 mg BID JORDON Administration Heparin Sodium (Porcine) 5,000 unit 05/08/19 10:00 05/11/19 10:12 Heparin SUB-Q 5,000 unit Q12HR JORDON Administration Hydromorphone HCl 0.5 mg 05/07/19 16:08 05/11/19 10:14 Dilaudid IV 0.5 mg Q3H PRN Administration Pain , Severe (7-10) Cefepime HCl 2 gm in 100 mls @ 200 mls/hr 05/09/19 16:00 05/11/19 05:27 Cefepime/Ns 2 Gm/100 Ml IV 200 mls/hr Q8HR JORDON Administration Protocol Metronidazole 500 mg in 100 mls @ 100 mls/hr 05/09/19 16:00 05/11/19 05:28 Flagyl 500 Mg/100 Ml IV 100 mls/hr Q8HR JORDON Administration Protocol Insulin Human Lispro 0 unit 05/08/19 00:15 05/11/19 07:30 Humalog SUB-Q Not Given ACHS JORDON Protocol Levetiracetam 1,000 mg 05/07/19 23:00 05/11/19 10:12 Keppra PO 1,000 mg BID JORDON Administration Lorazepam 1 mg 05/08/19 10:00 05/11/19 10:11 Ativan PO 1 mg DAILY JORDON Administration Metformin HCl 1,000 mg 05/08/19 08:00 05/11/19 10:23 Glucophage Xr PO 1,000 mg BIDDIAB JORDON Administration Ondansetron HCl 4 mg 05/07/19 16:08 05/11/19 10:28 Zofran IV 4 mg Q8H PRN Administration Nausea And Vomiting Oxybutynin Chloride 5 mg 05/08/19 22:00 05/10/19 21:27 Ditropan PO 5 mg HS JORDON Administration Oxycodone/Acetaminophen 2 tab 05/09/19 23:56 05/10/19 21:27 Percocet 5/325 PO 2 tab Q6H PRN Administration Pain, Moderate (4-6) Pregabalin 300 mg 05/07/19 23:00 05/11/19 10:11 Pregabalin PO 300 mg BID JORDON Administration Sertraline HCl 25 mg 05/08/19 10:00 05/11/19 10:11 Zoloft PO 25 mg QDAY JORDON Administration Sodium Chloride 10 ml 05/07/19 16:08 Sodium Chloride Flush Syringe 10 Ml IV PRN PRN LINE FLUSH Sodium Chloride 10 ml 05/08/19 10:00 05/11/19 10:11 Sodium Chloride Flush Syringe 10 Ml IV 10 ml BID JORDON Administration Sodium Hypochlorite 1 applic 05/08/19 14:00 05/11/19 10:13 Dakin's Half Strength TP 1 applicatio BID JORDON Administration Nutrition/Malnutrition Assess - Dietary Evaluation Nutrition/Malnutrition Findings: Nutrition Notes Start: 05/08/19 11:00 Freq: Status: Active Protocol: Document 05/10/19 17:08 RM (Rec: 05/10/19 17:19 [id number]) Nutrition Notes Initial or Follow up Reassessment Current Diagnosis Decubitus(Pressure Ulcer), Diabetes,Hypertension,Stroke Other Pertinent Diagnosis Dementia, UTI, Stage 4 sacral wound, SIRS Current Diet Cardiac w/Ensure Enlive Chocolate BID Labs/Tests POC 131,205,121 Pertinent Medications Reviewed Height 5 ft 5 in Weight 67.585 kg [place] Body Weight (kg) 56.81 BMI 24.7 Subjective/Other Information Pt stated that her appetite poor and that she eats 1/3 of her meals. Stated that she drinks the Ensure Enlive. Percent of energy/protein needs met: 100%/84% Burn Absent Trauma Absent Minimum of two criteria Yes Energy Intake (severe) < or equal to 50% Estimated Energy Requirement > or equal to 5 days Interpretation of Weight Loss (severe) >5% in 1 month Body Fat Depletion Mild depletion (non-severe) Reduced Hammer Driver Strength Measurably Reduced (severe) #2 Nutrition Diagnosis Increased nutrient needs ( specify in comment below) Diagnosis Progress(for reassessment Continues documentation) #1 Nutrition Diagnosis Malnutrition As Evidenced by Signs and Symptoms pt meeting 100% of calorie and 84% of protein needs Diagnosis Progress(for reassessment Improved documentation) Is patient on ventilator? No Is Patient Ambulatory and/or Out of Bed No REE-([facility]-confined to bed) [phone] Calculation Used for Recommendations [facility] Additional Notes Protein needs are 81-101g (1.2 -1.5g/kg) Fluid needs are 1ml/kcal Nutrition Intervention Change Diet Order: Continue cardiac Add Supplement/Snack (indicate name/kcal Ensure Enlive Chocolate BID /protein ) Provides kCal: 700 Provides Protein (gm) 40 Goal #1 Continue to meet at least 75% of kcal and protein needs via ONS and PO Goal #2 Wt maintenance Goal #3 Wound healing Anticipated Discharge Needs: Cardiac diet with ONS BID to TID Follow-Up By: 05/17/19 Additional Comments Follow for PO and ONS intakes
[2019-05-11] MEDS: oxyCODONE /ACETAMINOPHEN 5-325MG TAB PO PRN (13:23)
[2019-05-11] MEDS: OXYBUTYNIN 5 MG TAB PO SCH (21:38)
[2019-05-12 04:25] LABS: Hematocrit 24.3 % (30.3-42.9); Mean Corpuscular HGB Conc 33 % (30-34); Mean Corpuscular Volume 79 fl (79-97); Platelet Count 436 K/mm3 (140-440); Red Blood Count 3.06 M/mm3 (3.65-5.03); Red Cell Distribution Width 14.6 % (13.2-15.2)
[2019-05-12] MEDS: oxyCODONE /ACETAMINOPHEN 5-325MG TAB PO PRN ×3 (04:32→23:43)
[2019-05-12 04:49] LABS: BUN/Creatinine Ratio 30; Blood Urea Nitrogen 9 mg/dL (7-17); Calcium 8.9 mg/dL (8.4-10.2); Hemolysis Index 0
[2019-05-12] MEDS: CEFEPIME/NS 2 GM/100 ML 2 GM/100 ML BAG IV SCH ×3 (05:06→22:08)
[2019-05-12] MEDS: metroNIDAZOLE/NS 500 MG/100 ML 500 MG/100 ML BAG IV SCH (05:46)
[2019-05-12] MEDS: INSULIN LISPRO 100 UNIT/ML SUB-Q SCH ×4 (07:30→22:07)
--- NOTE | 2019-05-12 09:24 | Progress Note ---
Assessment and Plan Assessment and plan: /gross hematurea, from UTI - resolved - monitor CBC, avoid heparin product 68 yo female with history of CVA admitted on due to blood in urine and a worsening buttocks sore with foul smelling drainage. Per patient, she was hospitalized for 18 days at outside facility in September 2018 and developed sacral wound. In the ED, temp 99.7, HR 83, R 15, BP 121/55. WBC 13. Creat 0.2. UA >182 wbc. Blood culture 05/07/2019 so far negative. Urine culture 05/07/2019 <10K bacteria. She underwent beside debridement on 05/08. Wound culture 05/08/[address] suggestive of osteo, will need 6 weeks of abx. /Infected Sacral decubitus ulcer, stage iv with sacral osteomylitis Wound care and Surgery consulted s/p I and D on 05/08 - wound cx positive for E. Coli consulted ID - continue cefepime 2 gm IV q 8 hour for now and metronidazole IV inpatient for discharge on ceftriaxone 2 gm IV qday for 6 weeks till 06/19/2019. PICC line order placed. /Sepsis 2/2 infected decubitus ulcer with osteomyelitis and UTI cont IV Abx / UTI (urinary tract infection) cont IV Abx urine culture neg /Acute toxic encephalopathy -due to sepsis, resolved / H/o CVA with residual right hemiparesis and bedbound cont plavix PT/OT following / HTN (hypertension) BP trending down but stable will cont to hold her amlodipine and coreg / DM2 type 2, controlled cont SSI and Metformin A1c ~ 5 /Anemia of CD H/H stable monitor and transfuse for hb<7 Hypokalemia Repleted and resolved Hypomagnesemia We'll replete and monitor level Seizure disorder cont keppra Urinary incontinence cont oxybytunin Dementia without beh dist cont home meds /Moderate PCM nutrition following Chronic debility Per daughter, patient was bedbound prior to admission Continue supportive care /DVT prophylaxis On Heparin Disp: Pending PICC line placement and antibiotic arrangement by CM before discharge to home with home health History Interval history: Patient has no new complaints. She denies pain. Hospitalist Physical - Constitutional Vitals: Temp Pulse Resp BP Pulse Ox 99.0 F 64 20 103/42 98 05/12/19 07:24 05/12/19 07:24 05/12/19 07:24 05/12/19 07:30 05/12/19 07:24 General appearance: Present: no acute distress, well-nourished - EENT Eyes: Present: PERRL, EOM intact ENT: hearing intact, clear oral mucosa - Neck Neck: Present: supple - Respiratory Respiratory effort: normal Respiratory: bilateral: CTA - Cardiovascular Rhythm: regular Heart Sounds: Present: S1 & S2 - Extremities Extremities: No edema - Abdominal General gastrointestinal: soft, non-tender, normal bowel sounds - Psychiatric Psychiatric: cooperative - Neurologic Neurologic: moves all extremities Results - Labs CBC & Chem 7: 05/12/19 03:56 05/12/19 03:56 Labs: Laboratory Last Values WBC 10.2 K/mm3 (4.5-11.0) 05/12/19 03:56 RBC 3.06 M/mm3 (3.65-5.03) L 05/12/19 03:56 Hgb 8.0 gm/dl (10.1-14.3) L 05/12/19 03:56 Hct 24.3 % (30.3-42.9) L 05/12/19 03:56 MCV 79 fl (79-97) 05/12/19 03:56 MCH 26 pg (28-32) L 05/12/19 03:56 MCHC 33 % (30-34) 05/12/19 03:56 RDW 14.6 % (13.2-15.2) 05/12/19 03:56 Plt Count 436 K/mm3 (140-440) 05/12/19 03:56 Lymph % (Auto) 24.6 % (13.4-35.0) 05/10/19 04:33 [place] % (Auto) 7.8 % (0.0-7.3) H 05/10/19 04:33 Eos % (Auto) 5.1 % (0.0-4.3) H 05/10/19 04:33 Baso % (Auto) 0.8 % (0.0-1.8) 05/10/19 04:33 Lymph # 2.3 K/mm3 (1.2-5.4) 05/10/19 04:33 [place] # 0.7 K/mm3 (0.0-0.8) 05/10/19 04:33 Eos # 0.5 K/mm3 (0.0-0.4) H 05/10/19 04:33 Baso # 0.1 K/mm3 (0.0-0.1) 05/10/19 04:33 Seg Neutrophils % 61.7 % (40.0-70.0) 05/10/19 04:33 Seg Neutrophils # 5.8 K/mm3 (1.8-7.7) 05/10/19 04:33 Sodium 143 mmol/L (137-145) 05/12/19 03:56 Potassium 4.1 mmol/L (3.6-5.0) 05/12/19 03:56 Chloride 106.4 mmol/L (98-107) 05/12/19 03:56 Carbon Dioxide 23 mmol/L (22-30) 05/12/19 03:56 Anion Gap 18 mmol/L 05/12/19 03:56 BUN 9 mg/dL (7-17) 05/12/19 03:56 Creatinine 0.3 mg/dL (0.7-1.2) L 05/12/19 03:56 Estimated GFR > 60 ml/min 05/12/19 03:56 BUN/Creatinine Ratio 30 % 05/12/19 03:56 Glucose 89 mg/dL (65-100) 05/12/19 03:56 POC Glucose 102 (70-105) 05/12/19 07:34 Hemoglobin A1c 5.3 % (4-6) 05/07/19 13:00 Lactic Acid 0.90 mmol/L (0.7-2.0) 05/07/19 13:00 Calcium 8.9 mg/dL (8.4-10.2) 05/12/19 03:56 Magnesium 1.20 mg/dL (1.7-2.3) L 05/12/19 03:56 Total Bilirubin 0.30 mg/dL (0.1-1.2) 05/08/19 04:18 AST 16 units/L (5-40) 05/08/19 04:18 ALT 11 units/L (7-56) 05/08/19 04:18 Alkaline Phosphatase 81 units/L (35-129) 05/08/19 04:18 C-Reactive Protein 6.40 mg/dL (0.00-1.30) H 05/09/19 17:42 Total Protein 5.9 g/dL (6.3-8.2) L 05/08/19 04:18 Albumin 2.7 g/dL (3.9-5) L 05/08/19 04:18 Albumin/Globulin Ratio 0.8 % 05/08/19 04:18 Prealbumin 0.078 g/L (0.200-0.400) L 05/09/19 04:02 Urine Color Red (Yellow) 05/07/19 13:30 Urine Turbidity Turbid (Clear) 05/07/19 13:30 Urine pH TNR 05/07/19 13:30 Ur Specific [place] TNR 05/07/19 13:30 Urine Protein TNR 05/07/19 13:30 Urine Glucose (UA) TNR 05/07/19 13:30 Urine Ketones TNR 05/07/19 13:30 Urine Blood TNR 05/07/19 13:30 Urine Nitrite TNR 05/07/19 13:30 Ur Reducing Substances Not Reportable 05/07/19 13:30 Urine Bilirubin TNR 05/07/19 13:30 Urine Ictotest TNR 05/07/19 13:30 Urine Urobilinogen TNR 05/07/19 13:30 Ur Leukocyte Esterase TNR 05/07/19 13:30 Urine WBC (Auto) > 182.0 /HPF (0.0-6.0) H 05/07/19 13:30 Urine RBC (Auto) 2.0 /HPF (0.0-6.0) 05/07/19 13:30 U Epithel Cells (Auto) 11.0 /HPF (0-13.0) 05/07/19 13:30 Urine Bacteria (Auto) 2+ /HPF (Negative) 05/07/19 13:30 Urine Mucus Few /HPF 05/07/19 13:30 Active Medications - Current Medications Current Medications: Generic Name Dose Route Start Last Admin Trade Name Freq PRN Reason Stop Dose Admin Acetaminophen 650 mg 05/07/19 16:08 05/10/19 13:29 Tylenol PO 650 mg Q4H PRN Administration Pain MILD(1-3)/Fever >100.5/NARAYAN Citalopram Hydrobromide 10 mg 05/08/19 10:00 05/11/19 10:12 Celexa PO 10 mg QDAY JORDON Administration Clopidogrel Bisulfate 75 mg 05/08/19 10:00 05/11/19 10:12 Plavix PO 75 mg QDAY JORDON Administration Diclofenac Sodium 50 mg 05/07/19 22:21 Voltaren PO TID PRN Pain, Moderate (4-6) Famotidine 20 mg 05/08/19 10:00 05/11/19 21:38 Pepcid PO 20 mg BID JORDON Administration Heparin Sodium (Porcine) 5,000 unit 05/08/19 10:00 05/11/19 21:39 Heparin SUB-Q 5,000 unit Q12HR JORDON Administration Hydromorphone HCl 0.5 mg 05/07/19 16:08 05/11/19 18:53 Dilaudid IV 0.5 mg Q3H PRN Administration Pain , Severe (7-10) Cefepime HCl 2 gm in 100 mls @ 200 mls/hr 05/09/19 16:00 05/12/19 05:06 Cefepime/Ns 2 Gm/100 Ml IV 06/19/19 22:29 200 mls/hr Q8HR JORDON Administration Protocol Insulin Human Lispro 0 unit 05/08/19 00:15 05/11/19 22:51 Humalog SUB-Q 2 unit ACHS JORDON Administration Protocol Levetiracetam 1,000 mg 05/07/19 23:00 05/11/19 21:38 Keppra PO 1,000 mg BID JORDON Administration Lorazepam 1 mg 05/08/19 10:00 05/11/19 10:11 Ativan PO 1 mg DAILY JORDON Administration Metformin HCl 1,000 mg 05/08/19 08:00 05/11/19 18:46 Glucophage Xr PO 1,000 mg BIDDIAB JORDON Administration Ondansetron HCl 4 mg 05/07/19 16:08 05/11/19 20:31 Zofran IV 4 mg Q8H PRN Administration Nausea And Vomiting Oxybutynin Chloride 5 mg 05/08/19 22:00 05/11/19 21:38 Ditropan PO 5 mg HS JORDON Administration Oxycodone/Acetaminophen 2 tab 05/09/19 23:56 05/12/19 04:32 Percocet 5/325 PO 2 tab Q6H PRN Administration Pain, Moderate (4-6) Pregabalin 300 mg 05/07/19 23:00 05/11/19 21:37 Pregabalin PO 300 mg BID JORDON Administration Sertraline HCl 25 mg 05/08/19 10:00 05/11/19 10:11 Zoloft PO 25 mg QDAY JORDON Administration Sodium Chloride 10 ml 05/07/19 16:08 Sodium Chloride Flush Syringe 10 Ml IV PRN PRN LINE FLUSH Sodium Chloride 10 ml 05/08/19 10:00 05/11/19 21:37 Sodium Chloride Flush Syringe 10 Ml IV 10 ml BID JORDON Administration Sodium Hypochlorite 1 applic 05/08/19 14:00 05/11/19 21:38 Dakin's Half Strength TP 1 applicatio BID JORDON Administration Nutrition/Malnutrition Assess - Dietary Evaluation Nutrition/Malnutrition Findings: Nutrition Notes Start: 05/08/19 11:00 Freq: Status: Active Protocol: Document 05/10/19 17:08 RM (Rec: 05/10/19 17:19 [id number]) Nutrition Notes Initial or Follow up Reassessment Current Diagnosis Decubitus(Pressure Ulcer), Diabetes,Hypertension,Stroke Other Pertinent Diagnosis Dementia, UTI, Stage 4 sacral wound, SIRS Current Diet Cardiac w/Ensure Enlive Chocolate BID Labs/Tests POC 131,205,121 Pertinent Medications Reviewed Height 5 ft 5 in Weight 67.585 kg [place] Body Weight (kg) 56.81 BMI 24.7 Subjective/Other Information Pt stated that her appetite poor and that she eats 1/3 of her meals. Stated that she drinks the Ensure Enlive. Percent of energy/protein needs met: 100%/84% Burn Absent Trauma Absent Minimum of two criteria Yes Energy Intake (severe) < or equal to 50% Estimated Energy Requirement > or equal to 5 days Interpretation of Weight Loss (severe) >5% in 1 month Body Fat Depletion Mild depletion (non-severe) Reduced Service Or Work Dispatcher Chief Strength Measurably Reduced (severe) #2 Nutrition Diagnosis Increased nutrient needs ( specify in comment below) Diagnosis Progress(for reassessment Continues documentation) #1 Nutrition Diagnosis Malnutrition As Evidenced by Signs and Symptoms pt meeting 100% of calorie and 84% of protein needs Diagnosis Progress(for reassessment Improved documentation) Is patient on ventilator? No Is Patient Ambulatory and/or Out of Bed No REE-([facility]-confined to bed) 1441.980 Calculation Used for Recommendations [place] Additional Notes Protein needs are 81-101g (1.2 -1.5g/kg) Fluid needs are 1ml/kcal Nutrition Intervention Change Diet Order: Continue cardiac Add Supplement/Snack (indicate name/kcal Ensure Enlive Chocolate BID /protein ) Provides kCal: 700 Provides Protein (gm) 40 Goal #1 Continue to meet at least 75% of kcal and protein needs via ONS and PO Goal #2 Wt maintenance Goal #3 Wound healing Anticipated Discharge Needs: Cardiac diet with ONS BID to TID Follow-Up By: 05/17/19 Additional Comments Follow for PO and ONS intakes
[2019-05-12] MEDS: metFORMIN XR 500MG TAB PO SCH ×2 (09:43→17:10)
[2019-05-12] MEDS: HYDROmorphone 1 MG/1 ML INJ IV PRN ×2 (09:44→20:13)
[2019-05-12] MEDS: CLOPIDOGREL 75 MG TAB PO SCH (09:45)
[2019-05-12] MEDS: ONDANSETRON 4 MG/2 ML INJ IV PRN ×2 (09:45→20:13)
[2019-05-12] MEDS: PREGABALIN 75 MG CAP PO SCH ×2 (09:46→22:07)
[2019-05-12] MEDS: levETIRAcetam 500 MG TAB PO SCH ×2 (09:46→22:07)
[2019-05-12] MEDS: LORazepam 1 MG TAB PO SCH (09:47)
[2019-05-12] MEDS: FAMOTIDINE 20 MG TAB PO SCH ×2 (09:47→22:07)
[2019-05-12] MEDS: SODIUM HYPOCHLORITE, DAKIN'S 1/2 STRENGTH (0.25%) 473 ML TOPICAL SOLN TP SCH ×2 (09:47→22:08)
[2019-05-12] MEDS: SERTRALINE 25 MG TAB PO SCH (09:47)
[2019-05-12] MEDS: CITALOPRAM 10 MG TAB PO SCH (09:47)
[2019-05-12] MEDS: HEPARIN 5,000 UNIT/1 ML VIAL SUB-Q SCH ×2 (09:48→22:09)
[2019-05-12] MEDS ORDERED: MAGNESIUM SULFATE 4 GM/100 ML BAG IV ONE (10:00)
--- NOTE | 2019-05-12 12:44 | Progress Note ---
Assessment and Plan Cultures: Blood culture 05/07/2019 so far negative. Urine culture 05/07/2019 <10K bacteria. Wound culture 05/08/2019 E coli pansensitive and GNR Assessment: 68 yo female with history of CVA admitted on due to blood in urine and a worsening buttocks sore with foul smelling drainage: 1) Sepsis:resolved; likely due to infected sacral decubitus and UTI. 2) Infected sacral decubitus with osteomyelitis: she was hospitalized for 18 days at outside facility in September 2018 and developed sacral wound. She is bedbound and has bladder incontinence. S/p beside debridement on 05/08. Wound culture E coli. CT pelvis with early sacral osteomyelitis. 3) Presumed UTI: UA >182 wbc. Recs: f/u wound culture which is growing another GNR ? anaerobic continue cefepime 2 gm IV q 8 hour restart po metronidazole ok to discharge on ceftriaxone 2 gm IV qday and metronidazole 500 mg po tid for 6 weeks till 06/19/2019. Orders sent to shoe caser. ID clinic f/u on Jun 03, international student advisor notified Will follow. Veronica Garibay MD Infectious Diseases Machine C[employer] [facility] ([facility]) M [phone] O [phone] Subjective Date of service: 05/12/19 Principal diagnosis: sacral wound Interval history: Feels better good spirit, participating on PT, no complaints. no fever. Objective - Exam Narrative Exam: Constitutional: Alert, cooperative. No acute distress Head, Ears, Nose: Normocephalic, atraumatic. External ears, nose normal Eyes: Conjunctivae/corneas clear. No icterus. No ptosis. Neck: Supple, no meningeal signs Oral: dentition fair, no thrush Cardiovascular: S1, S2 normal. L permacath Respiratory: Good air entry, clear to auscultation bilaterally GI: Soft, non-tender; bowel sounds normal. No peritoneal signs. Musculoskeletal: +florian wrist swelling and tenderness Skin: +sacral wound covered with dressings Hem/Lymphatic: No palpable cervical or supraclavicular nodes. No lymphangitis Psych: Mood ok. Affect normal Neurological: Awake, alert, oriented. No gross abnormality - Constitutional Vitals: Vital Signs Temp Pulse Resp BP Pulse Ox 99.0 F 64 20 103/42 98 05/12/19 07:24 05/12/19 07:24 05/12/19 07:24 05/12/19 07:30 05/12/19 07:24 Temperature -Last 24 Hours Temperature 99.0 F Temperature 97.2 F Temperature 97.6 F Temperature 99.7 F - Labs CBC & Chem 7: 05/12/19 03:56 05/12/19 03:56 Labs: Abnormal lab results 05/11/19 05/11/19 05/12/19 Range/Units 16:19 22:40 03:56 RBC 3.06 L (3.65-5.03) M/mm3 Hgb 8.0 L (10.1-14.3) gm/dl Hct 24.3 L (30.3-42.9) % MCH 26 L (28-32) pg Creatinine (0.7-1.2) mg/dL POC Glucose 107 H 180 H (70-105) Magnesium (1.7-2.3) mg/dL 05/12/19 05/12/19 Range/Units 03:56 11:46 RBC (3.65-5.03) M/mm3 Hgb (10.1-14.3) gm/dl Hct (30.3-42.9) % MCH (28-32) pg Creatinine 0.3 L (0.7-1.2) mg/dL POC Glucose 144 H (70-105) Magnesium 1.20 L (1.7-2.3) mg/dL
[2019-05-12] MEDS: metroNIDAZOLE 500 MG TAB PO SCH ×2 (17:10→22:07)
[2019-05-12] MEDS: OXYBUTYNIN 5 MG TAB PO SCH (22:07)
[2019-05-13] MEDS: CEFEPIME/NS 2 GM/100 ML 2 GM/100 ML BAG IV SCH ×3 (05:30→22:27)
[2019-05-13] MEDS: metroNIDAZOLE 500 MG TAB PO SCH ×3 (05:30→22:27)
[2019-05-13] MEDS: INSULIN LISPRO 100 UNIT/ML SUB-Q SCH ×4 (08:31→22:29)
[2019-05-13] MEDS: metFORMIN XR 500MG TAB PO SCH ×2 (08:46→17:48)
[2019-05-13] MEDS: CITALOPRAM 10 MG TAB PO SCH (09:02)
[2019-05-13] MEDS: LORazepam 1 MG TAB PO SCH ×2 (09:02→20:18)
[2019-05-13] MEDS: PREGABALIN 75 MG CAP PO SCH ×2 (09:03→22:27)
[2019-05-13] MEDS: CLOPIDOGREL 75 MG TAB PO SCH (09:03)
[2019-05-13] MEDS: SODIUM HYPOCHLORITE, DAKIN'S 1/2 STRENGTH (0.25%) 473 ML TOPICAL SOLN TP SCH ×2 (09:03→22:28)
[2019-05-13] MEDS: FAMOTIDINE 20 MG TAB PO SCH ×2 (09:03→22:31)
[2019-05-13] MEDS: levETIRAcetam 500 MG TAB PO SCH ×2 (09:03→22:27)
[2019-05-13] MEDS: HEPARIN 5,000 UNIT/1 ML VIAL SUB-Q SCH ×2 (09:03→22:28)
[2019-05-13] MEDS: SERTRALINE 25 MG TAB PO SCH (09:04)
[2019-05-13] MEDS: HYDROmorphone 1 MG/1 ML INJ IV PRN (09:56)
[2019-05-13] MEDS ORDERED: SODIUM CHLORIDE 0.9% 500 ML 500 ML IV ONE (10:00)
[2019-05-13] MEDS ORDERED: SODIUM CHLORIDE 0.9% 500 ML 500 ML ONE (12:29)
[2019-05-13] MEDS ORDERED: HEPARIN/NS 5000 UNIT/500ML 500 ML IR ONE (12:30)
[2019-05-13] MEDS ORDERED: MIDAZOLAM 2 MG/2 ML INJ ONE (12:33)
[2019-05-13] MEDS ORDERED: fentaNYL 100 MCG/2 ML INJ ONE (12:33)
[2019-05-13] MEDS ORDERED: SODIUM CHLORIDE 0.9% 500 ML 500 ML IV SCH (13:00)
[2019-05-13] MEDS: LIDOCAINE (2%) 20 MG/1 ML VIAL 20 ML MDV INFILTRATI ONE ×2 (13:08→13:12)
--- NOTE | 2019-05-13 13:23 | Operative Report ---
Operative Report Operative Report: Exam: Ultrasound and fluoroscopic guided PICC placement Clinical indication: Patient with bacteremia requiring long-term access for antibiotics Date: 05/13/2019 Procedure: Following an explanation of the risks, benefits and alternatives; written informed consent was obtained. The patient was brought to the angiographic suite and placed in supine position on the examination table. Initial ultrasound evaluation of the arm demonstrate a patent basilic vein. The patient's right arm prepped and draped in the usual sterile fashion. 1% lidocaine was used for anesthesia. Under ultrasound guidance, the right basilic vein was cannulated with a 7 cm 21- gauge needle. A 0.018 guidewire was advanced centrally under fluoroscopy. The guidewire was advanced into the IVC to document intravenous positioning. The needle was removed and a 5.5 Divehi peel-away sheath placed over the guidewire and advanced centrally. Following standard guidewire measurements, the guidewire was removed, the PICC was cut to length and inserted to the peel-away sheath in the peel-away sheath removed. The PICC catheter tip was positioned at the cavoatrial junction. Both ports flushed and aspirated easily and more than locked with sterile saline. The catheter was securely fastened skin surface using a StatLock device. A sterile dressing was applied. The patient tolerated the procedure well. There were no immediate post procedure complications. A minimal amount of sedation was utilized. Continuous cardiopulmonary monitoring was utilized. Impression: Ultrasound and fluoroscopic guided placement of PICC line via the right basilic vein.
[2019-05-13] MEDS ORDERED: SODIUM CHLORIDE 0.9% 1000 ML 1,000 ML IV ONE (14:47)
[2019-05-13] MEDS ORDERED: MAGNESIUM SULFATE 4 GM/100 ML BAG IV ONE (14:49)
--- NOTE | 2019-05-13 14:50 | Progress Note ---
Assessment and Plan Assessment and plan: 68 yo female with history of CVA admitted on due to blood in urine and a worsening buttocks sore with foul smelling drainage. Per patient, she was hospitalized for 18 days at outside facility in September 2018 and developed sacral wound. In the ED, temp 99.7, HR 83, R 15, BP 121/55. WBC 13. Creat 0.2. UA >182 wbc. Blood culture 05/07/2019 so far negative. Urine culture 05/07/2019 <10K bacteria. She underwent beside debridement on 05/08. Wound culture 05/08/[address] suggestive of osteo, will need 6 weeks of abx. /Infected Sacral decubitus ulcer, stage iv with sacral osteomylitis Wound care and Surgery consulted s/p I and D on 05/08 - wound cx positive for E. Coli consulted ID - continue cefepime 2 gm IV q 8 hour for now and metronidazole IV inpatient for discharge on ceftriaxone 2 gm IV qday for 6 weeks till 06/19/2019. PICC line order placed. /Sepsis 2/2 infected decubitus ulcer with osteomyelitis and UTI cont IV Abx / UTI (urinary tract infection) cont IV Abx urine culture neg /gross hematuria, from UTI - resolved /Acute toxic encephalopathy -due to sepsis, resolved / H/o CVA with residual right hemiparesis and bedbound cont plavix PT/OT following / HTN (hypertension) BP trending down but stable will cont to hold her amlodipine and coreg / DM2 type 2, controlled cont SSI and Metformin A1c ~ 5 /Anemia of CD H/H stable monitor and transfuse for hb<7 Hypokalemia Repleted and resolved Hypomagnesemia -on repletion, will monitor level Hypotension -probably due to vol depletion -IVF bolus, will monitor BP Seizure disorder cont keppra Urinary incontinence cont oxybytunin Dementia without beh dist cont home meds /Moderate PCM nutrition following Chronic debility Per daughter, patient was bedbound prior to admission Continue supportive care /DVT prophylaxis On Heparin Disp: Due to hypotension and persistent hypomagnesemia predisposing to seizure activity, will monitor pt for another 24 hrs. Antibiotic arrangement by CHARITO saavedra re discharge to home with home health History Interval history: Patient complained of buttock pain today. Hospitalist Physical - Constitutional Vitals: Temp Pulse Resp BP Pulse Ox 99.2 F 73 18 100/38 98 05/13/19 13:58 05/13/19 13:58 05/13/19 13:58 05/13/19 13:58 05/13/19 13:58 General appearance: Present: no acute distress - EENT Eyes: Present: PERRL, EOM intact ENT: hearing intact, clear oral mucosa - Neck Neck: Present: supple - Respiratory Respiratory effort: normal Respiratory: bilateral: CTA - Cardiovascular Rhythm: regular Heart Sounds: Present: S1 & S2 - Extremities Extremities: No edema - Abdominal General gastrointestinal: soft, non-tender, normal bowel sounds - Psychiatric Psychiatric: cooperative - Neurologic Neurologic: other (alert and oriented x3) Results - Labs CBC & Chem 7: 05/12/19 03:56 05/12/19 03:56 Labs: Laboratory Last Values WBC 10.2 K/mm3 (4.5-11.0) 05/12/19 03:56 RBC 3.06 M/mm3 (3.65-5.03) L 05/12/19 03:56 Hgb 8.0 gm/dl (10.1-14.3) L 05/12/19 03:56 Hct 24.3 % (30.3-42.9) L 05/12/19 03:56 MCV 79 fl (79-97) 05/12/19 03:56 MCH 26 pg (28-32) L 05/12/19 03:56 MCHC 33 % (30-34) 05/12/19 03:56 RDW 14.6 % (13.2-15.2) 05/12/19 03:56 Plt Count 436 K/mm3 (140-440) 05/12/19 03:56 Lymph % (Auto) 24.6 % (13.4-35.0) 05/10/19 04:33 Mineral % (Auto) 7.8 % (0.0-7.3) H 05/10/19 04:33 Eos % (Auto) 5.1 % (0.0-4.3) H 05/10/19 04:33 Baso % (Auto) 0.8 % (0.0-1.8) 05/10/19 04:33 Lymph # 2.3 K/mm3 (1.2-5.4) 05/10/19 04:33 Mineral # 0.7 K/mm3 (0.0-0.8) 05/10/19 04:33 Eos # 0.5 K/mm3 (0.0-0.4) H 05/10/19 04:33 Baso # 0.1 K/mm3 (0.0-0.1) 05/10/19 04:33 Seg Neutrophils % 61.7 % (40.0-70.0) 05/10/19 04:33 Seg Neutrophils # 5.8 K/mm3 (1.8-7.7) 05/10/19 04:33 Sodium 143 mmol/L (137-145) 05/12/19 03:56 Potassium 4.1 mmol/L (3.6-5.0) 05/12/19 03:56 Chloride 106.4 mmol/L (98-107) 05/12/19 03:56 Carbon Dioxide 23 mmol/L (22-30) 05/12/19 03:56 Anion Gap 18 mmol/L 05/12/19 03:56 BUN 9 mg/dL (7-17) 05/12/19 03:56 Creatinine 0.3 mg/dL (0.7-1.2) L 05/12/19 03:56 Estimated GFR > 60 ml/min 05/12/19 03:56 BUN/Creatinine Ratio 30 % 05/12/19 03:56 Glucose 89 mg/dL (65-100) 05/12/19 03:56 POC Glucose 95 (70-105) 05/13/19 11:39 Hemoglobin A1c 5.3 % (4-6) 05/07/19 13:00 Lactic Acid 0.90 mmol/L (0.7-2.0) 05/07/19 13:00 Calcium 8.9 mg/dL (8.4-10.2) 05/12/19 03:56 Magnesium 1.30 mg/dL (1.7-2.3) L 05/13/19 04:39 Total Bilirubin 0.30 mg/dL (0.1-1.2) 05/08/19 04:18 AST 16 units/L (5-40) 05/08/19 04:18 ALT 11 units/L (7-56) 05/08/19 04:18 Alkaline Phosphatase 81 units/L (35-129) 05/08/19 04:18 C-Reactive Protein 6.40 mg/dL (0.00-1.30) H 05/09/19 17:42 Total Protein 5.9 g/dL (6.3-8.2) L 05/08/19 04:18 Albumin 2.7 g/dL (3.9-5) L 05/08/19 04:18 Albumin/Globulin Ratio 0.8 % 05/08/19 04:18 Prealbumin 0.078 g/L (0.200-0.400) L 05/09/19 04:02 Urine Color Red (Yellow) 05/07/19 13:30 Urine Turbidity Turbid (Clear) 05/07/19 13:30 Urine pH TNR 05/07/19 13:30 Ur Specific [place] TNR 05/07/19 13:30 Urine Protein TNR 05/07/19 13:30 Urine Glucose (UA) TNR 05/07/19 13:30 Urine Ketones TNR 05/07/19 13:30 Urine Blood TNR 05/07/19 13:30 Urine Nitrite TNR 05/07/19 13:30 Ur Reducing Substances Not Reportable 05/07/19 13:30 Urine Bilirubin TNR 05/07/19 13:30 Urine Ictotest TNR 05/07/19 13:30 Urine Urobilinogen TNR 05/07/19 13:30 Ur Leukocyte Esterase TNR 05/07/19 13:30 Urine WBC (Auto) > 182.0 /HPF (0.0-6.0) H 05/07/19 13:30 Urine RBC (Auto) 2.0 /HPF (0.0-6.0) 05/07/19 13:30 U Epithel Cells (Auto) 11.0 /HPF (0-13.0) 05/07/19 13:30 Urine Bacteria (Auto) 2+ /HPF (Negative) 05/07/19 13:30 Urine Mucus Few /HPF 05/07/19 13:30 Active Medications - Current Medications Current Medications: Generic Name Dose Route Start Last Admin Trade Name Freq PRN Reason Stop Dose Admin Acetaminophen 650 mg 05/07/19 16:08 05/10/19 13:29 Tylenol PO 650 mg Q4H PRN Administration Pain MILD(1-3)/Fever >100.5/NARAYAN Citalopram Hydrobromide 10 mg 05/08/19 10:00 05/13/19 09:02 Celexa PO Not Given QDAY [facility] Clopidogrel Bisulfate 75 mg 05/08/19 10:00 05/13/19 09:03 Plavix PO Not Given QDAY [facility] Diclofenac Sodium 50 mg 05/07/19 22:21 Voltaren PO TID PRN Pain, Moderate (4-6) Famotidine 20 mg 05/08/19 10:00 05/13/19 09:03 Pepcid PO Not Given BID [facility] Heparin Sodium (Porcine) 5,000 unit 05/08/19 10:00 05/13/19 09:03 Heparin SUB-Q Not Given Q12HR [facility] Hydromorphone HCl 0.5 mg 05/07/19 16:08 05/13/19 09:56 Dilaudid IV 0.5 mg Q3H PRN Administration Pain , Severe (7-10) Cefepime HCl 2 gm in 100 mls @ 200 mls/hr 05/09/19 16:00 05/13/19 14:17 Cefepime/Ns 2 Gm/100 Ml IV 06/19/19 22:29 200 mls/hr Q8HR [facility] Administration Protocol Sodium Chloride 500 mls @ 50 mls/hr 05/13/19 13:00 Nacl 0.9% 500 Ml IV DIRECT [facility] Insulin Human Lispro 0 unit 05/08/19 00:15 05/13/19 12:25 Humalog SUB-Q Not Given ACHS [facility] Protocol Levetiracetam 1,000 mg 05/07/19 23:00 05/13/19 09:03 Keppra PO Not Given BID [facility] Lorazepam 1 mg 05/08/19 10:00 05/13/19 09:02 Ativan PO Not Given DAILY [facility] Metformin HCl 1,000 mg 05/08/19 08:00 05/13/19 08:46 Glucophage Xr PO Not Given BIDDIAB [facility] Metronidazole 500 mg 05/12/19 14:00 05/13/19 14:17 Flagyl PO 06/19/19 22:01 500 mg Q8HR [facility] Administration Protocol Ondansetron HCl 4 mg 05/07/19 16:08 05/12/19 20:13 Zofran IV 4 mg Q8H PRN Administration Nausea And Vomiting Oxybutynin Chloride 5 mg 05/08/19 22:00 05/12/19 22:07 Ditropan PO 5 mg HS JORDON Administration Oxycodone/Acetaminophen 2 tab 05/09/19 23:56 05/12/19 23:43 Percocet 5/325 PO 2 tab Q6H PRN Administration Pain, Moderate (4-6) Pregabalin 300 mg 05/07/19 23:00 05/13/19 09:03 Pregabalin PO Not Given BID JORDON Sertraline HCl 25 mg 05/08/19 10:00 05/13/19 09:04 Zoloft PO Not Given QDAY JORDON Sodium Chloride 10 ml 05/07/19 16:08 Sodium Chloride Flush Syringe 10 Ml IV PRN PRN LINE FLUSH Sodium Chloride 10 ml 05/08/19 10:00 05/13/19 09:03 Sodium Chloride Flush Syringe 10 Ml IV 10 ml BID JORDON Administration Sodium Hypochlorite 1 applic 05/08/19 14:00 05/13/19 09:03 Dakin's Half Strength TP 1 applicatio BID JORDON Administration Nutrition/Malnutrition Assess - Dietary Evaluation Nutrition/Malnutrition Findings: Nutrition Notes Start: 05/08/19 11:00 Freq: Status: Active Protocol: Document 05/10/19 17:08 RM (Rec: 05/10/19 17:19 [id number]) Nutrition Notes Initial or Follow up Reassessment Current Diagnosis Decubitus(Pressure Ulcer), Diabetes,Hypertension,Stroke Other Pertinent Diagnosis Dementia, UTI, Stage 4 sacral wound, SIRS Current Diet Cardiac w/Ensure Enlive Chocolate BID Labs/Tests POC 131,205,121 Pertinent Medications Reviewed Height 5 ft 5 in Weight 67.585 kg [place] Body Weight (kg) 56.81 BMI 24.7 Subjective/Other Information Pt stated that her appetite poor and that she eats 1/3 of her meals. Stated that she drinks the Ensure Enlive. Percent of energy/protein needs met: 100%/84% Burn Absent Trauma Absent Minimum of two criteria Yes Energy Intake (severe) < or equal to 50% Estimated Energy Requirement > or equal to 5 days Interpretation of Weight Loss (severe) >5% in 1 month Body Fat Depletion Mild depletion (non-severe) Reduced [employer] Strength Measurably Reduced (severe) #2 Nutrition Diagnosis Increased nutrient needs ( specify in comment below) Diagnosis Progress(for reassessment Continues documentation) #1 Nutrition Diagnosis Malnutrition As Evidenced by Signs and Symptoms pt meeting 100% of calorie and 84% of protein needs Diagnosis Progress(for reassessment Improved documentation) Is patient on ventilator? No Is Patient Ambulatory and/or Out of Bed No REE-([facility]-confined to bed) [phone] Calculation Used for Recommendations [facility] Additional Notes Protein needs are 81-101g (1.2 -1.5g/kg) Fluid needs are 1ml/kcal Nutrition Intervention Change Diet Order: Continue cardiac Add Supplement/Snack (indicate name/kcal Ensure Enlive Chocolate BID /protein ) Provides kCal: 700 Provides Protein (gm) 40 Goal #1 Continue to meet at least 75% of kcal and protein needs via ONS and PO Goal #2 Wt maintenance Goal #3 Wound healing Anticipated Discharge Needs: Cardiac diet with ONS BID to TID Follow-Up By: 05/17/19 Additional Comments Follow for PO and ONS intakes
--- NOTE | 2019-05-13 15:48 | Progress Note ---
Assessment and Plan Cultures: Blood culture 05/07/2019 so far negative. Urine culture 05/07/2019 <10K bacteria. Wound culture 05/08/2019 E coli pansensitive and GNR Assessment: 68 yo female with history of CVA admitted on due to blood in urine and a worsening buttocks sore with foul smelling drainage: 1) Sepsis:resolved; likely due to infected sacral decubitus and UTI. 2) Infected sacral decubitus with osteomyelitis: she was hospitalized for 18 days at outside facility in September 2018 and developed sacral wound. She is bedbound and has bladder incontinence. S/p beside debridement on 05/08. Wound culture E coli. CT pelvis with early sacral osteomyelitis. 3) Presumed UTI: UA >182 wbc. Recs: f/u wound culture which is growing another GNR ? anaerobic continue cefepime 2 gm IV q 8 hour continue po metronidazole ok to discharge on ceftriaxone 2 gm IV qday and metronidazole 500 mg po tid for 6 weeks till 06/19/2019. Orders sent to director of casework department. ID clinic f/u on Jun 03, doctor assistant notified Will follow. Veronica Garibay MD Infectious Diseases Computer Systems Security Analyst [facility] ([facility]) M [phone] O [phone] Subjective Date of service: 05/13/19 Principal diagnosis: sacral wound Interval history: Feels ok no complaints. no fever. Objective - Exam Narrative Exam: Constitutional: Alert, cooperative. No acute distress Head, Ears, Nose: Normocephalic, atraumatic. External ears, nose normal Eyes: Conjunctivae/corneas clear. No icterus. No ptosis. Neck: Supple, no meningeal signs Oral: dentition fair, no thrush Cardiovascular: S1, S2 normal. L permacath Respiratory: Good air entry, clear to auscultation bilaterally GI: Soft, non-tender; bowel sounds normal. No peritoneal signs. Musculoskeletal: +florian wrist swelling and tenderness Skin: +sacral wound covered with dressings Hem/Lymphatic: No palpable cervical or supraclavicular nodes. No lymphangitis Psych: Mood ok. Affect normal Neurological: Awake, alert, oriented. No gross abnormality - Constitutional Vitals: Vital Signs Temp Pulse Resp BP Pulse Ox 99.2 F 73 18 100/38 98 05/13/19 13:58 05/13/19 13:58 05/13/19 13:58 05/13/19 13:58 05/13/19 13:58 Temperature -Last 24 Hours Temperature 99.2 F Temperature 99.2 F Temperature 99.5 F Temperature 99.4 F - Labs CBC & Chem 7: 05/12/19 03:56 05/12/19 03:56 Labs: Abnormal lab results 05/12/19 05/12/19 05/13/19 Range/Units 16:54 20:51 04:39 POC Glucose 130 H 164 H (70-105) Magnesium 1.30 L (1.7-2.3) mg/dL
[2019-05-13] MEDS: oxyCODONE /ACETAMINOPHEN 5-325MG TAB PO PRN ×2 (17:53→22:36)
[2019-05-13] MEDS: OXYBUTYNIN 5 MG TAB PO SCH (22:27)
[2019-05-14] MEDS: oxyCODONE /ACETAMINOPHEN 5-325MG TAB PO PRN ×4 (02:29→20:30)
[2019-05-14] MEDS: metroNIDAZOLE 500 MG TAB PO SCH ×3 (06:05→23:23)
[2019-05-14] MEDS: CEFEPIME/NS 2 GM/100 ML 2 GM/100 ML BAG IV SCH (06:05)
[2019-05-14] MEDS: ONDANSETRON 4 MG/2 ML INJ IV PRN (07:02)
[2019-05-14] MEDS: INSULIN LISPRO 100 UNIT/ML SUB-Q SCH ×4 (07:49→23:29)
[2019-05-14] MEDS: metFORMIN XR 500MG TAB PO SCH ×2 (08:35→16:56)
[2019-05-14] MEDS ORDERED: MAGNESIUM SULFATE 4 GM/100 ML BAG IV ONE (09:00)
[2019-05-14] MEDS: FAMOTIDINE 20 MG TAB PO SCH ×2 (09:13→23:29)
[2019-05-14] MEDS: LORazepam 1 MG TAB PO SCH (09:13)
[2019-05-14] MEDS: levETIRAcetam 500 MG TAB PO SCH ×2 (09:13→23:22)
[2019-05-14] MEDS: CITALOPRAM 10 MG TAB PO SCH (09:13)
[2019-05-14] MEDS: CLOPIDOGREL 75 MG TAB PO SCH (09:13)
[2019-05-14] MEDS: HEPARIN 5,000 UNIT/1 ML VIAL SUB-Q SCH ×2 (09:14→23:24)
[2019-05-14] MEDS: SERTRALINE 25 MG TAB PO SCH (09:22)
[2019-05-14] MEDS: SODIUM HYPOCHLORITE, DAKIN'S 1/2 STRENGTH (0.25%) 473 ML TOPICAL SOLN TP SCH ×2 (09:24→23:24)
[2019-05-14] MEDS: PREGABALIN 75 MG CAP PO SCH ×2 (10:59→23:22)
--- NOTE | 2019-05-14 11:30 | Progress Note ---
Assessment and Plan Assessment and plan: 68 yo female with history of CVA admitted on due to blood in urine and a worsening buttocks sore with foul smelling drainage. Per patient, she was hospitalized for 18 days at outside facility in September 2018 and developed sacral wound. In the ED, temp 99.7, HR 83, R 15, BP 121/55. WBC 13. Creat 0.2. UA >182 wbc. Blood culture 05/07/2019 so far negative. Urine culture 05/07/2019 <10K bacteria. She underwent beside debridement on 05/08. Wound culture 05/08/[address] suggestive of osteo, will need 6 weeks of abx. /Infected Sacral decubitus ulcer, stage iv with sacral osteomylitis Wound care and Surgery consulted s/p I and D on 05/08 - wound cx positive for E. Coli consulted ID - continue cefepime 2 gm IV q 8 hour for now and metronidazole IV inpatient for discharge on ceftriaxone 2 gm IV qday for 6 weeks till 06/19/2019. PICC line order placed. 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 cont plavix PT/OT following / HTN (hypertension) BP trending down but stable will cont to hold her amlodipine and coreg / DM2 type 2, controlled cont SSI and Metformin A1c ~ 5 /Anemia of CD H/H stable monitor and transfuse for hb<7 Hypokalemia Repleted and resolved Hypomagnesemia -on repletion, will monitor level Hypotension -probably due to vol depletion -s/p IVF bolus, BP stable Seizure disorder cont keppra Urinary incontinence cont oxybytunin Dementia without beh dist cont home meds /Moderate PCM nutrition following Chronic debility Per pt's daughter, patient was bedbound prior to admission Continue supportive care /DVT prophylaxis On Heparin Disp: Patient's daughter requested for SN[facility] placement for IV antibiotic infusion, immigration case worker following up History Interval history: Patient complained of constipation today. Hospitalist Physical - Constitutional Vitals: Temp Pulse Resp BP Pulse Ox 98.1 F 69 20 125/35 100 05/14/19 07:44 05/14/19 09:12 05/14/19 07:44 05/14/19 09:12 05/14/19 09:12 General appearance: Present: no acute distress - EENT Eyes: Present: PERRL, EOM intact ENT: hearing intact, clear oral mucosa - Neck Neck: Present: supple - Respiratory Respiratory effort: normal Respiratory: bilateral: CTA - Cardiovascular Rhythm: regular Heart Sounds: Present: S1 & S2 - Extremities Extremities: No edema - Abdominal General gastrointestinal: soft, tender (lower abd), normal bowel sounds - Psychiatric Psychiatric: cooperative - Neurologic Neurologic: other (alert and oriented) Results - Labs CBC & Chem 7: 05/12/19 03:56 05/12/19 03:56 Labs: Laboratory Last Values WBC 10.2 K/mm3 (4.5-11.0) 05/12/19 03:56 RBC 3.06 M/mm3 (3.65-5.03) L 05/12/19 03:56 Hgb 8.0 gm/dl (10.1-14.3) L 05/12/19 03:56 Hct 24.3 % (30.3-42.9) L 05/12/19 03:56 MCV 79 fl (79-97) 05/12/19 03:56 MCH 26 pg (28-32) L 05/12/19 03:56 MCHC 33 % (30-34) 05/12/19 03:56 RDW 14.6 % (13.2-15.2) 05/12/19 03:56 Plt Count 436 K/mm3 (140-440) 05/12/19 03:56 Lymph % (Auto) 24.6 % (13.4-35.0) 05/10/19 04:33 [place] % (Auto) 7.8 % (0.0-7.3) H 05/10/19 04:33 Eos % (Auto) 5.1 % (0.0-4.3) H 05/10/19 04:33 Baso % (Auto) 0.8 % (0.0-1.8) 05/10/19 04:33 Lymph # 2.3 K/mm3 (1.2-5.4) 05/10/19 04:33 [place] # 0.7 K/mm3 (0.0-0.8) 05/10/19 04:33 Eos # 0.5 K/mm3 (0.0-0.4) H 05/10/19 04:33 Baso # 0.1 K/mm3 (0.0-0.1) 05/10/19 04:33 Seg Neutrophils % 61.7 % (40.0-70.0) 05/10/19 04:33 Seg Neutrophils # 5.8 K/mm3 (1.8-7.7) 05/10/19 04:33 Sodium 143 mmol/L (137-145) 05/12/19 03:56 Potassium 4.1 mmol/L (3.6-5.0) 05/12/19 03:56 Chloride 106.4 mmol/L (98-107) 05/12/19 03:56 Carbon Dioxide 23 mmol/L (22-30) 05/12/19 03:56 Anion Gap 18 mmol/L 05/12/19 03:56 BUN 9 mg/dL (7-17) 05/12/19 03:56 Creatinine 0.3 mg/dL (0.7-1.2) L 05/12/19 03:56 Estimated GFR > 60 ml/min 05/12/19 03:56 BUN/Creatinine Ratio 30 % 05/12/19 03:56 Glucose 89 mg/dL (65-100) 05/12/19 03:56 POC Glucose 140 (70-105) H 05/14/19 11:17 Hemoglobin A1c 5.3 % (4-6) 05/07/19 13:00 Lactic Acid 0.90 mmol/L (0.7-2.0) 05/07/19 13:00 Calcium 8.9 mg/dL (8.4-10.2) 05/12/19 03:56 Magnesium 1.50 mg/dL (1.7-2.3) L 05/14/19 05:45 Total Bilirubin 0.30 mg/dL (0.1-1.2) 05/08/19 04:18 AST 16 units/L (5-40) 05/08/19 04:18 ALT 11 units/L (7-56) 05/08/19 04:18 Alkaline Phosphatase 81 units/L (35-129) 05/08/19 04:18 C-Reactive Protein 6.40 mg/dL (0.00-1.30) H 05/09/19 17:42 Total Protein 5.9 g/dL (6.3-8.2) L 05/08/19 04:18 Albumin 2.7 g/dL (3.9-5) L 05/08/19 04:18 Albumin/Globulin Ratio 0.8 % 05/08/19 04:18 Prealbumin 0.078 g/L (0.200-0.400) L 05/09/19 04:02 Urine Color Red (Yellow) 05/07/19 13:30 Urine Turbidity Turbid (Clear) 05/07/19 13:30 Urine pH TNR 05/07/19 13:30 Ur Specific [place] TNR 05/07/19 13:30 Urine Protein TNR 05/07/19 13:30 Urine Glucose (UA) TNR 05/07/19 13:30 Urine Ketones TNR 05/07/19 13:30 Urine Blood TNR 05/07/19 13:30 Urine Nitrite TNR 05/07/19 13:30 Ur Reducing Substances Not Reportable 05/07/19 13:30 Urine Bilirubin TNR 05/07/19 13:30 Urine Ictotest TNR 05/07/19 13:30 Urine Urobilinogen TNR 05/07/19 13:30 Ur Leukocyte Esterase TNR 05/07/19 13:30 Urine WBC (Auto) > 182.0 /HPF (0.0-6.0) H 05/07/19 13:30 Urine RBC (Auto) 2.0 /HPF (0.0-6.0) 05/07/19 13:30 U Epithel Cells (Auto) 11.0 /HPF (0-13.0) 05/07/19 13:30 Urine Bacteria (Auto) 2+ /HPF (Negative) 05/07/19 13:30 Urine Mucus Few /HPF 05/07/19 13:30 Active Medications - Current Medications Current Medications: Generic Name Dose Route Start Last Admin Trade Name Freq PRN Reason Stop Dose Admin Acetaminophen 650 mg 05/07/19 16:08 05/10/19 13:29 Tylenol PO 650 mg Q4H PRN Administration Pain MILD(1-3)/Fever >100.5/NARAYAN Citalopram Hydrobromide 10 mg 05/08/19 10:00 05/14/19 09:13 Celexa PO 10 mg QDAY JORDON Administration Clopidogrel Bisulfate 75 mg 05/08/19 10:00 05/14/19 09:13 Plavix PO 75 mg QDAY JORDON Administration Diclofenac Sodium 50 mg 05/07/19 22:21 Voltaren PO TID PRN Pain, Moderate (4-6) Famotidine 20 mg 05/08/19 10:00 05/14/19 09:13 Pepcid PO 20 mg BID JORDON Administration Heparin Sodium (Porcine) 5,000 unit 05/08/19 10:00 05/14/19 09:14 Heparin SUB-Q 5,000 unit Q12HR JORDNO Administration Sodium Chloride 500 mls @ 50 mls/hr 05/13/19 13:00 Nacl 0.9% 500 Ml IV DIRECT JORDON Magnesium Sulfate 4 gm in 100 mls @ 25 mls/hr 05/14/19 09:00 05/14/19 09:15 Magnesium Sulfate 4gm/100ml IV 05/14/19 12:59 25 mls/hr ONCE ONE Administration Ceftriaxone Sodium 2 gm in 100 mls @ 200 mls/hr 05/14/19 11:00 Rocephin/Ns 2 Gm/100 Ml IV 06/19/19 23:59 Q24HR [facility] Insulin Human Lispro 0 unit 05/08/19 00:15 05/14/19 07:49 Humalog SUB-Q Not Given ACHS [facility] Protocol Levetiracetam 1,000 mg 05/07/19 23:00 05/14/19 09:13 Keppra PO 1,000 mg BID JORDON Administration Lorazepam 1 mg 05/08/19 10:00 05/14/19 09:13 Ativan PO 1 mg DAILY JORDON Administration Metformin HCl 1,000 mg 05/08/19 08:00 05/14/19 08:35 Glucophage Xr PO 1,000 mg BIDDIAB JORDON Administration Metronidazole 500 mg 05/12/19 14:00 05/14/19 06:05 Flagyl PO 06/19/19 22:01 500 mg Q8HR JORDON Administration Protocol Ondansetron HCl 4 mg 05/07/19 16:08 05/14/19 07:02 Zofran IV 4 mg Q8H PRN Administration Nausea And Vomiting Oxybutynin Chloride 5 mg 05/08/19 22:00 05/13/19 22:27 Ditropan PO 5 mg HS JORDON Administration Oxycodone/Acetaminophen 2 tab 05/13/19 14:55 05/14/19 06:05 Percocet 5/325 PO 2 tab Q4H PRN Administration Pain, Moderate (4-6) Pregabalin 300 mg 05/07/19 23:00 05/14/19 10:59 Pregabalin PO 300 mg BID JORDON Administration Sertraline HCl 25 mg 05/08/19 10:00 05/14/19 09:22 Zoloft PO 25 mg QDAY JORDON Administration Sodium Chloride 10 ml 05/07/19 16:08 Sodium Chloride Flush Syringe 10 Ml IV PRN PRN LINE FLUSH Sodium Chloride 10 ml 05/08/19 10:00 05/14/19 09:14 Sodium Chloride Flush Syringe 10 Ml IV 10 ml BID JORDON Administration Sodium Hypochlorite 1 applic 05/08/19 14:00 05/14/19 09:24 Dakin's Half Strength TP 1 applicatio BID JORDON Administration Nutrition/Malnutrition Assess - Dietary Evaluation Nutrition/Malnutrition Findings: Nutrition Notes Start: 05/08/19 11:00 Freq: Status: Active Protocol: Document 05/10/19 17:08 RM (Rec: 05/10/19 17:19 [id number]) Nutrition Notes Initial or Follow up Reassessment Current Diagnosis Decubitus(Pressure Ulcer), Diabetes,Hypertension,Stroke Other Pertinent Diagnosis Dementia, UTI, Stage 4 sacral wound, SIRS Current Diet Cardiac w/Ensure Enlive Chocolate BID Labs/Tests POC 131,205,121 Pertinent Medications Reviewed Height 5 ft 5 in Weight 67.585 kg [place] Body Weight (kg) 56.81 BMI 24.7 Subjective/Other Information Pt stated that her appetite poor and that she eats 1/3 of her meals. Stated that she drinks the Ensure Enlive. Percent of energy/protein needs met: 100%/84% Burn Absent Trauma Absent Minimum of two criteria Yes Energy Intake (severe) < or equal to 50% Estimated Energy Requirement > or equal to 5 days Interpretation of Weight Loss (severe) >5% in 1 month Body Fat Depletion Mild depletion (non-severe) Reduced Library Monitor Strength Measurably Reduced (severe) #2 Nutrition Diagnosis Increased nutrient needs ( specify in comment below) Diagnosis Progress(for reassessment Continues documentation) #1 Nutrition Diagnosis Malnutrition As Evidenced by Signs and Symptoms pt meeting 100% of calorie and 84% of protein needs Diagnosis Progress(for reassessment Improved documentation) Is patient on ventilator? No Is Patient Ambulatory and/or Out of Bed No REE-([facility]-confined to bed) [phone] Calculation Used for Recommendations [facility] Additional Notes Protein needs are 81-101g (1.2 -1.5g/kg) Fluid needs are 1ml/kcal Nutrition Intervention Change Diet Order: Continue cardiac Add Supplement/Snack (indicate name/kcal Ensure Enlive Chocolate BID /protein ) Provides kCal: 700 Provides Protein (gm) 40 Goal #1 Continue to meet at least 75% of kcal and protein needs via ONS and PO Goal #2 Wt maintenance Goal #3 Wound healing Anticipated Discharge Needs: Cardiac diet with ONS BID to TID Follow-Up By: 05/17/19 Additional Comments Follow for PO and ONS intakes
[2019-05-14] MEDS: POLYETHYLENE GLYCOL 3350 17 GM POWDER PO SCH (12:09)
[2019-05-14] MEDS: SENNOSIDES/DOCUSATE SODIUM 8.6/50 MG TAB PO SCH (12:09)
[2019-05-14] MEDS: cefTRIAXone/NS 2 GM/100 ML 2 GM/100 ML BAG IV SCH (12:10)
--- NOTE | 2019-05-14 15:24 | Progress Note ---
Assessment and Plan Cultures: Blood culture 05/07/2019 so far negative. Urine culture 05/07/2019 <10K bacteria. Wound culture 05/08/2019 E coli pansensitive and GNR Assessment: 68 yo female with history of CVA admitted on due to blood in urine and a worsening buttocks sore with foul smelling drainage: 1) Sepsis:resolved; likely due to infected sacral decubitus and UTI. 2) Infected sacral decubitus with osteomyelitis: she was hospitalized for 18 days at outside facility in September 2018 and developed sacral wound. She is bedbound and has bladder incontinence. S/p beside debridement on 05/08. Wound culture E coli. CT pelvis with early sacral osteomyelitis. 3) Presumed UTI: UA >182 wbc. Recs: f/u wound culture which is growing another GNR ? anaerobic continue cefepime 2 gm IV q 8 hour continue po metronidazole ok to discharge on ceftriaxone 2 gm IV qday and metronidazole 500 mg po tid for 6 weeks till 06/19/2019. Orders sent to returned case inspector. ID clinic f/u on Jun 03, corn popper notified daughter requesting placement Will sign off please call us with questions Veronica Garibay MD Infectious Diseases Radio Board Operator Announcer [facility] ([facility]) M [phone] O [phone] Subjective Date of service: 05/14/19 Principal diagnosis: sacral wound Interval history: Feels ok no complaints. no fever. Objective - Exam Narrative Exam: Constitutional: Alert, cooperative. No acute distress Head, Ears, Nose: Normocephalic, atraumatic. External ears, nose normal Eyes: Conjunctivae/corneas clear. No icterus. No ptosis. Neck: Supple, no meningeal signs Oral: dentition fair, no thrush Cardiovascular: S1, S2 normal. L permacath Respiratory: Good air entry, clear to auscultation bilaterally GI: Soft, non-tender; bowel sounds normal. No peritoneal signs. Musculoskeletal: +florian wrist swelling and tenderness Skin: +sacral wound covered with dressings Hem/Lymphatic: No palpable cervical or supraclavicular nodes. No lymphangitis Psych: Mood ok. Affect normal Neurological: Awake, alert, oriented. No gross abnormality - Constitutional Vitals: Vital Signs Temp Pulse Resp BP Pulse Ox 98.7 F 56 L 20 120/62 93 05/14/19 13:22 05/14/19 13:22 05/14/19 13:22 05/14/19 13:22 05/14/19 13:22 Temperature -Last 24 Hours Temperature 98.7 F Temperature 98.1 F Temperature 98.9 F Temperature 98.3 F - Labs CBC & Chem 7: 05/12/19 03:56 05/12/19 03:56 Labs: Abnormal lab results 05/13/19 05/13/19 05/14/19 Range/Units 16:38 21:48 05:45 POC Glucose 156 H 138 H (70-105) Magnesium 1.50 L (1.7-2.3) mg/dL 05/14/19 Range/Units 11:17 POC Glucose 140 H (70-105) Magnesium (1.7-2.3) mg/dL
[2019-05-14] MEDS: OXYBUTYNIN 5 MG TAB PO SCH (23:23)
[2019-05-15] MEDS: oxyCODONE /ACETAMINOPHEN 5-325MG TAB PO PRN ×4 (02:20→22:49)
[2019-05-15] MEDS: SENNOSIDES/DOCUSATE SODIUM 8.6/50 MG TAB PO SCH ×2 (02:20→14:51)
[2019-05-15] MEDS: metroNIDAZOLE 500 MG TAB PO SCH ×3 (05:54→22:44)
[2019-05-15 07:07] LABS: BUN/Creatinine Ratio 30; Blood Urea Nitrogen 6 mg/dL (7-17); Calcium 8.5 mg/dL (8.4-10.2); Hemolysis Index 1
[2019-05-15] MEDS: INSULIN LISPRO 100 UNIT/ML SUB-Q SCH ×4 (07:30→22:53)
[2019-05-15] MEDS ORDERED: MAGNESIUM SULFATE 4 GM/100 ML BAG IV ONE (09:08)
[2019-05-15] MEDS: levETIRAcetam 500 MG TAB PO SCH ×2 (09:44→22:44)
[2019-05-15] MEDS: PREGABALIN 75 MG CAP PO SCH ×2 (09:44→22:45)
[2019-05-15] MEDS: HEPARIN 5,000 UNIT/1 ML VIAL SUB-Q SCH ×2 (09:44→22:51)
[2019-05-15] MEDS: FAMOTIDINE 20 MG TAB PO SCH ×2 (09:45→22:45)
[2019-05-15] MEDS: SERTRALINE 25 MG TAB PO SCH (09:45)
[2019-05-15] MEDS: CLOPIDOGREL 75 MG TAB PO SCH (09:45)
[2019-05-15] MEDS: CITALOPRAM 10 MG TAB PO SCH (09:45)
[2019-05-15] MEDS: LORazepam 1 MG TAB PO SCH (09:45)
[2019-05-15] MEDS: MAGNESIUM OXIDE 400 MG TAB PO SCH ×2 (09:45→22:45)
[2019-05-15] MEDS: metFORMIN XR 500MG TAB PO SCH ×2 (09:46→17:05)
[2019-05-15] MEDS: cefTRIAXone/NS 2 GM/100 ML 2 GM/100 ML BAG IV SCH (09:47)
[2019-05-15] MEDS: POTASSIUM CHLORIDE ER 20 MEQ TAB PO SCH (09:47)
[2019-05-15] MEDS: POLYETHYLENE GLYCOL 3350 17 GM POWDER PO SCH (10:05)
--- NOTE | 2019-05-15 12:26 | Progress Note ---
Assessment and Plan Assessment and plan: 68 yo female with history of CVA admitted on due to blood in urine and a worsening buttocks sore with foul smelling drainage. Per patient, she was hospitalized for 18 days at outside facility in September 2018 and developed sacral wound. In the ED, temp 99.7, HR 83, R 15, BP 121/55. WBC 13. Creat 0.2. UA >182 wbc. Blood culture 05/07/2019 so far negative. Urine culture 05/07/2019 <10K bacteria. She underwent beside debridement on 05/08. Wound culture 05/08/2019 grew E.coli and Proteus. Pelvis CT suggestive of osteo, will need 6 weeks of abx. /Infected Sacral decubitus ulcer, stage iv with sacral osteomylitis Wound care and Surgery consulted s/p I and D on 05/08 - wound cx positive for E. Coli and Proteus consulted ID - continue IV cefepime 2 gm IV q 8 hour and metronidazole for now for discharge: ceftriaxone 2 gm IV qday for 6 weeks till 06/19/2019. PICC line order placed. 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 cont plavix PT/OT following / HTN (hypertension) BP trending down but stable will cont to hold her amlodipine and coreg / DM2 type 2, controlled cont SSI and Metformin A1c ~ 5 /Anemia of CD H/H stable monitor and transfuse for hb<7 Hypokalemia on repletion, will monitor level Hypomagnesemia -on repletion, will monitor level Hypotension -probably due to vol depletion -s/p IVF bolus, BP stable Seizure disorder cont keppra Urinary incontinence cont oxybytunin Dementia without beh dist cont home meds /Moderate PCM nutrition following Chronic debility Per pt's daughter, patient was bedbound prior to admission Continue supportive care /DVT prophylaxis On Heparin Disp: Patient's daughter requested for SNH placement for IV antibiotic infusion, patient case manager following up History Interval history: Patient was seen crying this morning feeling depressed. She voiced concern about her medical condition. I informed her that the antibiotics she's getting would take care of her wound infection. Hospitalist Physical - Constitutional Vitals: Temp Pulse Resp BP Pulse Ox 98.8 F 61 20 100/36 96 05/15/19 07:33 05/15/19 07:33 05/15/19 07:33 05/15/19 07:33 05/15/19 07:33 General appearance: Present: no acute distress - EENT Eyes: Present: PERRL, EOM intact ENT: hearing intact, clear oral mucosa - Neck Neck: Present: supple - Respiratory Respiratory effort: normal Respiratory: bilateral: CTA - Cardiovascular Rhythm: regular Heart Sounds: Present: S1 & S2 - Extremities Extremities: No edema - Abdominal General gastrointestinal: soft, non-tender, normal bowel sounds - Psychiatric Psychiatric: depressed - Neurologic Neurologic: other (aleret and oriented) Results - Labs CBC & Chem 7: 05/12/19 03:56 05/15/19 04:00 Labs: Laboratory Last Values WBC 10.2 K/mm3 (4.5-11.0) 05/12/19 03:56 RBC 3.06 M/mm3 (3.65-5.03) L 05/12/19 03:56 Hgb 8.0 gm/dl (10.1-14.3) L 05/12/19 03:56 Hct 24.3 % (30.3-42.9) L 05/12/19 03:56 MCV 79 fl (79-97) 05/12/19 03:56 MCH 26 pg (28-32) L 05/12/19 03:56 MCHC 33 % (30-34) 05/12/19 03:56 RDW 14.6 % (13.2-15.2) 05/12/19 03:56 Plt Count 436 K/mm3 (140-440) 05/12/19 03:56 Lymph % (Auto) 24.6 % (13.4-35.0) 05/10/19 04:33 [place] % (Auto) 7.8 % (0.0-7.3) H 05/10/19 04:33 Eos % (Auto) 5.1 % (0.0-4.3) H 05/10/19 04:33 Baso % (Auto) 0.8 % (0.0-1.8) 05/10/19 04:33 Lymph # 2.3 K/mm3 (1.2-5.4) 05/10/19 04:33 [place] # 0.7 K/mm3 (0.0-0.8) 05/10/19 04:33 Eos # 0.5 K/mm3 (0.0-0.4) H 05/10/19 04:33 Baso # 0.1 K/mm3 (0.0-0.1) 05/10/19 04:33 Seg Neutrophils % 61.7 % (40.0-70.0) 05/10/19 04:33 Seg Neutrophils # 5.8 K/mm3 (1.8-7.7) 05/10/19 04:33 Sodium 139 mmol/L (137-145) 05/15/19 04:00 Potassium 3.5 mmol/L (3.6-5.0) L 05/15/19 04:00 Chloride 105.4 mmol/L (98-107) 05/15/19 04:00 Carbon Dioxide 21 mmol/L (22-30) L 05/15/19 04:00 Anion Gap 16 mmol/L 05/15/19 04:00 BUN 6 mg/dL (7-17) L 05/15/19 04:00 Creatinine 0.2 mg/dL (0.7-1.2) L 05/15/19 04:00 Estimated GFR > 60 ml/min 05/15/19 04:00 BUN/Creatinine Ratio 30 % 05/15/19 04:00 Glucose 102 mg/dL (65-100) H 05/15/19 04:00 POC Glucose 92 (70-105) 05/15/19 11:43 Hemoglobin A1c 5.3 % (4-6) 05/07/19 13:00 Lactic Acid 0.90 mmol/L (0.7-2.0) 05/07/19 13:00 Calcium 8.5 mg/dL (8.4-10.2) 05/15/19 04:00 Magnesium 1.50 mg/dL (1.7-2.3) L 05/15/19 04:00 Total Bilirubin 0.30 mg/dL (0.1-1.2) 05/08/19 04:18 AST 16 units/L (5-40) 05/08/19 04:18 ALT 11 units/L (7-56) 05/08/19 04:18 Alkaline Phosphatase 81 units/L (35-129) 05/08/19 04:18 C-Reactive Protein 6.40 mg/dL (0.00-1.30) H 05/09/19 17:42 Total Protein 5.9 g/dL (6.3-8.2) L 05/08/19 04:18 Albumin 2.7 g/dL (3.9-5) L 05/08/19 04:18 Albumin/Globulin Ratio 0.8 % 05/08/19 04:18 Prealbumin 0.078 g/L (0.200-0.400) L 05/09/19 04:02 Urine Color Red (Yellow) 05/07/19 13:30 Urine Turbidity Turbid (Clear) 05/07/19 13:30 Urine pH TNR 05/07/19 13:30 Ur Specific [place] TNR 05/07/19 13:30 Urine Protein TNR 05/07/19 13:30 Urine Glucose (UA) TNR 05/07/19 13:30 Urine Ketones TNR 05/07/19 13:30 Urine Blood TNR 05/07/19 13:30 Urine Nitrite TNR 05/07/19 13:30 Ur Reducing Substances Not Reportable 05/07/19 13:30 Urine Bilirubin TNR 05/07/19 13:30 Urine Ictotest TNR 05/07/19 13:30 Urine Urobilinogen TNR 05/07/19 13:30 Ur Leukocyte Esterase TNR 05/07/19 13:30 Urine WBC (Auto) > 182.0 /HPF (0.0-6.0) H 05/07/19 13:30 Urine RBC (Auto) 2.0 /HPF (0.0-6.0) 05/07/19 13:30 U Epithel Cells (Auto) 11.0 /HPF (0-13.0) 05/07/19 13:30 Urine Bacteria (Auto) 2+ /HPF (Negative) 05/07/19 13:30 Urine Mucus Few /HPF 05/07/19 13:30 Active Medications - Current Medications Current Medications: Generic Name Dose Route Start Last Admin Trade Name Freq PRN Reason Stop Dose Admin Acetaminophen 650 mg 05/07/19 16:08 05/10/19 13:29 Tylenol PO 650 mg Q4H PRN Administration Pain MILD(1-3)/Fever >100.5/NARAYAN Citalopram Hydrobromide 10 mg 05/08/19 10:00 05/15/19 09:45 Celexa PO 10 mg QDAY JORDON Administration Clopidogrel Bisulfate 75 mg 05/08/19 10:00 05/15/19 09:45 Plavix PO 75 mg QDAY JORDON Administration Diclofenac Sodium 50 mg 05/07/19 22:21 05/15/19 05:54 Voltaren PO 50 mg TID PRN Administration Pain, Moderate (4-6) Famotidine 20 mg 05/08/19 10:00 05/15/19 09:45 Pepcid PO 20 mg BID JORDON Administration Heparin Sodium (Porcine) 5,000 unit 05/08/19 10:00 05/15/19 09:44 Heparin SUB-Q 5,000 unit Q12HR JORDON Administration Sodium Chloride 500 mls @ 50 mls/hr 05/13/19 13:00 Nacl 0.9% 500 Ml IV DIRECT JORDON Ceftriaxone Sodium 2 gm in 100 mls @ 200 mls/hr 05/14/19 11:00 05/15/19 09:47 Rocephin/Ns 2 Gm/100 Ml IV 06/19/19 23:59 200 mls/hr Q24HR JORDON Administration Magnesium Sulfate 4 gm in 100 mls @ 25 mls/hr 05/15/19 09:08 05/15/19 10:44 Magnesium Sulfate 4gm/100ml IV 05/15/19 13:07 25 mls/hr ONCE ONE Administration Insulin Human Lispro 0 unit 05/08/19 00:15 05/15/19 07:30 Humalog SUB-Q Not Given ACHS [facility] Protocol Levetiracetam 1,000 mg 05/07/19 23:00 05/15/19 09:44 Keppra PO 1,000 mg BID JORDON Administration Lorazepam 1 mg 05/08/19 10:00 05/15/19 09:45 Ativan PO 1 mg DAILY JORDON Administration Magnesium Oxide 400 mg 05/15/19 10:00 05/15/19 09:45 Mag-Ox PO 400 mg BID JORDON Administration Metformin HCl 1,000 mg 05/08/19 08:00 05/15/19 09:46 Glucophage Xr PO 1,000 mg BIDDIAB JORDON Administration Metronidazole 500 mg 05/12/19 14:00 05/15/19 05:54 Flagyl PO 06/19/19 22:01 500 mg Q8HR JORDON Administration Protocol Ondansetron HCl 4 mg 05/07/19 16:08 05/14/19 07:02 Zofran IV 4 mg Q8H PRN Administration Nausea And Vomiting Oxybutynin Chloride 5 mg 05/08/19 22:00 05/14/19 23:23 Ditropan PO 5 mg HS JORDON Administration Oxycodone/Acetaminophen 2 tab 05/13/19 14:55 05/15/19 09:45 Percocet 5/325 PO 2 tab Q4H PRN Administration Pain, Moderate (4-6) Polyethylene Glycol 17 gm 05/14/19 12:00 05/15/19 10:05 Miralax 3350 PO Not Given QDAY JORDON Potassium Chloride 40 meq 05/15/19 10:00 05/15/19 09:47 K-Dur PO 05/17/19 09:59 40 meq QDAY JORDON Administration Pregabalin 300 mg 05/07/19 23:00 05/15/19 09:44 Pregabalin PO 300 mg BID JORDON Administration Senna/Docusate Sodium 1 tab 05/14/19 12:00 05/15/19 02:20 Senokot S PO 1 tab Q12H JORDON Administration Sertraline HCl 25 mg 05/08/19 10:00 05/15/19 09:45 Zoloft PO 25 mg QDAY JORDON Administration Sodium Bicarbonate 650 mg 05/15/19 14:00 Sodium Bicarbonate PO 05/17/19 13:59 TID JORDON Sodium Chloride 10 ml 05/07/19 16:08 Sodium Chloride Flush Syringe 10 Ml IV PRN PRN LINE FLUSH Sodium Chloride 10 ml 05/08/19 10:00 05/15/19 10:05 Sodium Chloride Flush Syringe 10 Ml IV 10 ml BID JORDON Administration Sodium Hypochlorite 1 applic 05/08/19 14:00 05/14/19 23:24 Dakin's Half Strength TP 1 applicatio BID JORDON Administration Nutrition/Malnutrition Assess - Dietary Evaluation Nutrition/Malnutrition Findings: Nutrition Notes Start: 05/08/19 11:00 Freq: Status: Active Protocol: Document 05/10/19 17:08 RM (Rec: 05/10/19 17:19 RM [id number]) Nutrition Notes Initial or Follow up Reassessment Current Diagnosis Decubitus(Pressure Ulcer), Diabetes,Hypertension,Stroke Other Pertinent Diagnosis Dementia, UTI, Stage 4 sacral wound, SIRS Current Diet Cardiac w/Ensure Enlive Chocolate BID Labs/Tests POC 131,205,121 Pertinent Medications Reviewed Height 5 ft 5 in Weight 67.585 kg [place] Body Weight (kg) 56.81 BMI 24.7 Subjective/Other Information Pt stated that her appetite poor and that she eats 1/3 of her meals. Stated that she drinks the Ensure Enlive. Percent of energy/protein needs met: 100%/84% Burn Absent Trauma Absent Minimum of two criteria Yes Energy Intake (severe) < or equal to 50% Estimated Energy Requirement > or equal to 5 days Interpretation of Weight Loss (severe) >5% in 1 month Body Fat Depletion Mild depletion (non-severe) Reduced [employer] Manager Strength Measurably Reduced (severe) #2 Nutrition Diagnosis Increased nutrient needs ( specify in comment below) Diagnosis Progress(for reassessment Continues documentation) #1 Nutrition Diagnosis Malnutrition As Evidenced by Signs and Symptoms pt meeting 100% of calorie and 84% of protein needs Diagnosis Progress(for reassessment Improved documentation) Is patient on ventilator? No Is Patient Ambulatory and/or Out of Bed No REE-([facility]-confined to bed) [phone] Calculation Used for Recommendations [facility] Additional Notes Protein needs are 81-101g (1.2 -1.5g/kg) Fluid needs are 1ml/kcal Nutrition Intervention Change Diet Order: Continue cardiac Add Supplement/Snack (indicate name/kcal Ensure Enlive Chocolate BID /protein ) Provides kCal: 700 Provides Protein (gm) 40 Goal #1 Continue to meet at least 75% of kcal and protein needs via ONS and PO Goal #2 Wt maintenance Goal #3 Wound healing Anticipated Discharge Needs: Cardiac diet with ONS BID to TID Follow-Up By: 05/17/19 Additional Comments Follow for PO and ONS intakes
[2019-05-15] MEDS: SODIUM BICARBONATE 650 MG TAB PO SCH ×2 (14:50→22:44)
[2019-05-15] MEDS: SODIUM HYPOCHLORITE, DAKIN'S 1/2 STRENGTH (0.25%) 473 ML TOPICAL SOLN TP SCH ×2 (17:11→22:57)
[2019-05-15] MEDS: OXYBUTYNIN 5 MG TAB PO SCH (22:45)
[2019-05-16] MEDS: SENNOSIDES/DOCUSATE SODIUM 8.6/50 MG TAB PO SCH ×2 (00:12→12:29)
[2019-05-16] MEDS: metroNIDAZOLE 500 MG TAB PO SCH ×2 (05:57→22:28)
[2019-05-16] MEDS: oxyCODONE /ACETAMINOPHEN 5-325MG TAB PO PRN ×2 (05:58→11:24)
[2019-05-16 07:05] LABS: BUN/Creatinine Ratio 25; Blood Urea Nitrogen 5 mg/dL (7-17); Calcium 8.7 mg/dL (8.4-10.2); Hemolysis Index 2
[2019-05-16] MEDS ORDERED: MAGNESIUM SULFATE 4 GM/100 ML BAG IV ONE (07:18)
[2019-05-16] MEDS: LORazepam 1 MG TAB PO SCH (10:05)
[2019-05-16] MEDS: levETIRAcetam 500 MG TAB PO SCH ×2 (10:05→22:28)
[2019-05-16] MEDS: FAMOTIDINE 20 MG TAB PO SCH ×2 (10:05→22:26)
[2019-05-16] MEDS: SODIUM HYPOCHLORITE, DAKIN'S 1/2 STRENGTH (0.25%) 473 ML TOPICAL SOLN TP SCH ×2 (10:05→22:32)
[2019-05-16] MEDS: CLOPIDOGREL 75 MG TAB PO SCH (11:25)
--- NOTE | 2019-05-16 11:25 | Progress Note ---
Assessment and Plan Assessment and plan: 68 yo female with history of CVA admitted on due to blood in urine and a worsening buttocks sore with foul smelling drainage. Per patient, she was hospitalized for 18 days at outside facility in September 2018 and developed sacral wound. In the ED, temp 99.7, HR 83, R 15, BP 121/55. WBC 13. Creat 0.2. UA >182 wbc. Blood culture 05/07/2019 so far negative. Urine culture 05/07/2019 <10K bacteria. She underwent beside debridement on 05/08. Wound culture 05/08/2019 grew E.coli and Proteus. Pelvis CT suggestive of osteo, will need 6 weeks of abx. /Infected Sacral decubitus ulcer, stage iv with sacral osteomylitis Wound care and Surgery consulted s/p I and D on 05/08 - wound cx positive for E. Coli and Proteus consulted ID - continue IV cefepime 2 gm IV q 8 hour and metronidazole for now for discharge: ceftriaxone 2 gm IV qday for 6 weeks till 06/19/2019. PICC line order placed. 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 cont plavix PT/OT following / HTN (hypertension) BP trended down but stable will cont to hold her amlodipine and coreg / DM2 type 2, controlled cont SSI and Metformin A1c ~ 5 /Anemia of CD H/H stable monitor and transfuse for hb<7 Hypokalemia Repleted and improved Hypomagnesemia -on both oral and IV repletion, will monitor level Hypotension -probably due to vol depletion -s/p IVF bolus, BP stable Metabolic acidosis -On oral repletion, improving Seizure disorder cont keppra Urinary incontinence cont oxybytunin Dementia without beh dist cont home meds /Moderate PCM nutrition following Chronic debility Per pt's daughter, patient was bedbound prior to admission Continue supportive care /DVT prophylaxis On Heparin Disp: Awaiting SNH placement for IV antibiotic infusion, f/u with case picker. History Interval history: Patient reported that she had some abdominal pain this morning which has resolved. She denied nausea or vomiting Hospitalist Physical - Constitutional Vitals: Temp Pulse Resp BP Pulse Ox 99.4 F 65 18 102/45 99 05/16/19 08:27 05/16/19 08:27 05/16/19 08:27 05/16/19 08:27 05/16/19 08:27 General appearance: Present: no acute distress - EENT Eyes: Present: PERRL, EOM intact ENT: hearing intact, clear oral mucosa - Neck Neck: Present: supple - Respiratory Respiratory effort: normal Respiratory: bilateral: CTA - Cardiovascular Rhythm: regular Heart Sounds: Present: S1 & S2 - Extremities Extremities: No edema - Abdominal General gastrointestinal: soft, non-tender, normal bowel sounds - Neurologic Neurologic: other (alert and oriented) Results - Labs CBC & Chem 7: 05/12/19 03:56 05/16/19 05:45 Labs: Laboratory Last Values WBC 10.2 K/mm3 (4.5-11.0) 05/12/19 03:56 RBC 3.06 M/mm3 (3.65-5.03) L 05/12/19 03:56 Hgb 8.0 gm/dl (10.1-14.3) L 05/12/19 03:56 Hct 24.3 % (30.3-42.9) L 05/12/19 03:56 MCV 79 fl (79-97) 05/12/19 03:56 MCH 26 pg (28-32) L 05/12/19 03:56 MCHC 33 % (30-34) 05/12/19 03:56 RDW 14.6 % (13.2-15.2) 05/12/19 03:56 Plt Count 436 K/mm3 (140-440) 05/12/19 03:56 Lymph % (Auto) 24.6 % (13.4-35.0) 05/10/19 04:33 [place] % (Auto) 7.8 % (0.0-7.3) H 05/10/19 04:33 Eos % (Auto) 5.1 % (0.0-4.3) H 05/10/19 04:33 Baso % (Auto) 0.8 % (0.0-1.8) 05/10/19 04:33 Lymph # 2.3 K/mm3 (1.2-5.4) 05/10/19 04:33 [place] # 0.7 K/mm3 (0.0-0.8) 05/10/19 04:33 Eos # 0.5 K/mm3 (0.0-0.4) H 05/10/19 04:33 Baso # 0.1 K/mm3 (0.0-0.1) 05/10/19 04:33 Seg Neutrophils % 61.7 % (40.0-70.0) 05/10/19 04:33 Seg Neutrophils # 5.8 K/mm3 (1.8-7.7) 05/10/19 04:33 Sodium 140 mmol/L (137-145) 05/16/19 05:45 Potassium 3.9 mmol/L (3.6-5.0) 05/16/19 05:45 Chloride 105.7 mmol/L (98-107) 05/16/19 05:45 Carbon Dioxide 22 mmol/L (22-30) 05/16/19 05:45 Anion Gap 16 mmol/L 05/16/19 05:45 BUN 5 mg/dL (7-17) L 05/16/19 05:45 Creatinine 0.2 mg/dL (0.7-1.2) L 05/16/19 05:45 Estimated GFR > 60 ml/min 05/16/19 05:45 BUN/Creatinine Ratio 25 % 05/16/19 05:45 Glucose 82 mg/dL (65-100) 05/16/19 05:45 POC Glucose 97 (70-105) 05/16/19 07:48 Hemoglobin A1c 5.3 % (4-6) 05/07/19 13:00 Lactic Acid 0.90 mmol/L (0.7-2.0) 05/07/19 13:00 Calcium 8.7 mg/dL (8.4-10.2) 05/16/19 05:45 Magnesium 1.40 mg/dL (1.7-2.3) L 05/16/19 05:45 Total Bilirubin 0.30 mg/dL (0.1-1.2) 05/08/19 04:18 AST 16 units/L (5-40) 05/08/19 04:18 ALT 11 units/L (7-56) 05/08/19 04:18 Alkaline Phosphatase 81 units/L (35-129) 05/08/19 04:18 C-Reactive Protein 6.40 mg/dL (0.00-1.30) H 05/09/19 17:42 Total Protein 5.9 g/dL (6.3-8.2) L 05/08/19 04:18 Albumin 2.7 g/dL (3.9-5) L 05/08/19 04:18 Albumin/Globulin Ratio 0.8 % 05/08/19 04:18 Prealbumin 0.078 g/L (0.200-0.400) L 05/09/19 04:02 Urine Color Red (Yellow) 05/07/19 13:30 Urine Turbidity Turbid (Clear) 05/07/19 13:30 Urine pH TNR 05/07/19 13:30 Ur Specific [place] TNR 05/07/19 13:30 Urine Protein TNR 05/07/19 13:30 Urine Glucose (UA) TNR 05/07/19 13:30 Urine Ketones TNR 05/07/19 13:30 Urine Blood TNR 05/07/19 13:30 Urine Nitrite TNR 05/07/19 13:30 Ur Reducing Substances Not Reportable 05/07/19 13:30 Urine Bilirubin TNR 05/07/19 13:30 Urine Ictotest TNR 05/07/19 13:30 Urine Urobilinogen TNR 05/07/19 13:30 Ur Leukocyte Esterase TNR 05/07/19 13:30 Urine WBC (Auto) > 182.0 /HPF (0.0-6.0) H 05/07/19 13:30 Urine RBC (Auto) 2.0 /HPF (0.0-6.0) 05/07/19 13:30 U Epithel Cells (Auto) 11.0 /HPF (0-13.0) 05/07/19 13:30 Urine Bacteria (Auto) 2+ /HPF (Negative) 05/07/19 13:30 Urine Mucus Few /HPF 05/07/19 13:30 Active Medications - Current Medications Current Medications: Generic Name Dose Route Start Last Admin Trade Name Freq PRN Reason Stop Dose Admin Acetaminophen 650 mg 05/07/19 16:08 05/10/19 13:29 Tylenol PO 650 mg Q4H PRN Administration Pain MILD(1-3)/Fever >100.5/NARAYAN Citalopram Hydrobromide 10 mg 05/08/19 10:00 05/15/19 09:45 Celexa PO 10 mg QDAY JORDON Administration Clopidogrel Bisulfate 75 mg 05/08/19 10:00 05/15/19 09:45 Plavix PO 75 mg QDAY JORDON Administration Famotidine 20 mg 05/08/19 10:00 05/15/19 22:45 Pepcid PO 20 mg BID JORDON Administration Heparin Sodium (Porcine) 5,000 unit 05/08/19 10:00 05/15/19 22:51 Heparin SUB-Q 5,000 unit Q12HR JORDON Administration Sodium Chloride 500 mls @ 50 mls/hr 05/13/19 13:00 Nacl 0.9% 500 Ml IV DIRECT JORDON Ceftriaxone Sodium 2 gm in 100 mls @ 200 mls/hr 05/14/19 11:00 05/15/19 09:47 Rocephin/Ns 2 Gm/100 Ml IV 06/19/19 23:59 200 mls/hr Q24HR JORDON Administration Insulin Human Lispro 0 unit 05/08/19 00:15 05/15/19 22:53 Humalog SUB-Q Not Given ACHS JORDON Protocol Levetiracetam 1,000 mg 05/07/19 23:00 05/15/19 22:44 Keppra PO 1,000 mg BID JORDON Administration Lorazepam 1 mg 05/08/19 10:00 05/15/19 09:45 Ativan PO 1 mg DAILY JORDON Administration Magnesium Oxide 400 mg 05/15/19 10:00 05/15/19 22:45 Mag-Ox PO 400 mg BID JORDON Administration Metformin HCl 1,000 mg 05/08/19 08:00 05/15/19 17:05 Glucophage Xr PO 1,000 mg BIDDIAB JORDON Administration Metronidazole 500 mg 05/12/19 14:00 05/16/19 05:57 Flagyl PO 06/19/19 22:01 500 mg Q8HR JORDON Administration Protocol Ondansetron HCl 4 mg 05/07/19 16:08 05/14/19 07:02 Zofran IV 4 mg Q8H PRN Administration Nausea And Vomiting Oxybutynin Chloride 5 mg 05/08/19 22:00 05/15/19 22:45 Ditropan PO 5 mg HS JORDON Administration Oxycodone/Acetaminophen 2 tab 05/13/19 14:55 05/16/19 11:24 Percocet 5/325 PO 2 tab Q4H PRN Administration Pain, Moderate (4-6) Polyethylene Glycol 17 gm 05/14/19 12:00 05/15/19 10:05 Miralax 3350 PO Not Given QDAY JORDON Potassium Chloride 40 meq 05/15/19 10:00 05/15/19 09:47 K-Dur PO 05/17/19 09:59 40 meq QDAY JORDON Administration Pregabalin 300 mg 05/07/19 23:00 05/15/19 22:45 Pregabalin PO 300 mg BID JORDON Administration Senna/Docusate Sodium 1 tab 05/14/19 12:00 05/16/19 00:12 Senokot S PO Not Given Q12H JORDON Sertraline HCl 25 mg 05/08/19 10:00 05/15/19 09:45 Zoloft PO 25 mg QDAY JORDON Administration Sodium Bicarbonate 650 mg 05/15/19 14:00 05/15/19 22:44 Sodium Bicarbonate PO 05/17/19 13:59 650 mg TID JORDON Administration Sodium Chloride 10 ml 05/07/19 16:08 Sodium Chloride Flush Syringe 10 Ml IV PRN PRN LINE FLUSH Sodium Chloride 10 ml 05/08/19 10:00 05/16/19 08:29 Sodium Chloride Flush Syringe 10 Ml IV 10 ml BID JORDON Administration Sodium Hypochlorite 1 applic 05/08/19 14:00 05/15/19 22:57 Dakin's Half Strength TP 1 applicatio BID JORDON Administration Nutrition/Malnutrition Assess - Dietary Evaluation Nutrition/Malnutrition Findings: Nutrition Notes Start: 05/08/19 11:00 Freq: Status: Active Protocol: Document 05/10/19 17:08 RM (Rec: 05/10/19 17:19 [id number]) Nutrition Notes Initial or Follow up Reassessment Current Diagnosis Decubitus(Pressure Ulcer), Diabetes,Hypertension,Stroke Other Pertinent Diagnosis Dementia, UTI, Stage 4 sacral wound, SIRS Current Diet Cardiac w/Ensure Enlive Chocolate BID Labs/Tests POC 131,205,[phone] Pertinent Medications Reviewed Height 5 ft 5 in Weight 67.585 kg [place] Body Weight (kg) 56.81 BMI 24.7 Subjective/Other Information Pt stated that her appetite poor and that she eats 1/3 of her meals. Stated that she drinks the Ensure Enlive. Percent of energy/protein needs met: 100%/84% Burn Absent Trauma Absent Minimum of two criteria Yes Energy Intake (severe) < or equal to 50% Estimated Energy Requirement > or equal to 5 days Interpretation of Weight Loss (severe) >5% in 1 month Body Fat Depletion Mild depletion (non-severe) Reduced Wheat Shipper Strength Measurably Reduced (severe) #2 Nutrition Diagnosis Increased nutrient needs ( specify in comment below) Diagnosis Progress(for reassessment Continues documentation) #1 Nutrition Diagnosis Malnutrition As Evidenced by Signs and Symptoms pt meeting 100% of calorie and 84% of protein needs Diagnosis Progress(for reassessment Improved documentation) Is patient on ventilator? No Is Patient Ambulatory and/or Out of Bed No REE-([facility]-confined to bed) 1441.252 [facility] Additional Notes Protein needs are 81-101g (1.2 -1.5g/kg) Fluid needs are 1ml/kcal Nutrition Intervention Change Diet Order: Continue cardiac Add Supplement/Snack (indicate name/kcal Ensure Enlive Chocolate BID /protein ) Provides kCal: 700 Provides Protein (gm) 40 Goal #1 Continue to meet at least 75% of kcal and protein needs via ONS and PO Goal #2 Wt maintenance Goal #3 Wound healing Anticipated Discharge Needs: Cardiac diet with ONS BID to TID Follow-Up By: 05/17/19 Additional Comments Follow for PO and ONS intakes
[2019-05-16] MEDS: CITALOPRAM 10 MG TAB PO SCH (11:26)
[2019-05-16] MEDS: HEPARIN 5,000 UNIT/1 ML VIAL SUB-Q SCH ×2 (11:26→22:30)
[2019-05-16] MEDS: INSULIN LISPRO 100 UNIT/ML SUB-Q SCH ×3 (11:29→22:31)
[2019-05-16] MEDS: SERTRALINE 25 MG TAB PO SCH ×2 (12:01→12:16)
[2019-05-16] MEDS: cefTRIAXone/NS 2 GM/100 ML 2 GM/100 ML BAG IV SCH (12:15)
[2019-05-16] MEDS: POTASSIUM CHLORIDE ER 20 MEQ TAB PO SCH (12:17)
[2019-05-16] MEDS: metFORMIN XR 500MG TAB PO SCH ×2 (12:18→22:34)
[2019-05-16] MEDS: SODIUM BICARBONATE 650 MG TAB PO SCH ×2 (12:30→22:28)
[2019-05-16] MEDS: PREGABALIN 75 MG CAP PO SCH ×2 (12:30→22:26)
[2019-05-16] MEDS: POLYETHYLENE GLYCOL 3350 17 GM POWDER PO SCH (15:07)
[2019-05-16] MEDS: MAGNESIUM OXIDE 400 MG TAB PO SCH (20:15)
[2019-05-16] MEDS: OXYBUTYNIN 5 MG TAB PO SCH (22:29)
[2019-05-17] MEDS: SENNOSIDES/DOCUSATE SODIUM 8.6/50 MG TAB PO SCH ×2 (00:30→12:01)
[2019-05-17] MEDS: oxyCODONE /ACETAMINOPHEN 5-325MG TAB PO PRN (01:16)
[2019-05-17 06:18] LABS: BUN/Creatinine Ratio 20; Blood Urea Nitrogen 4 mg/dL (7-17); Calcium 8.7 mg/dL (8.4-10.2); Hemolysis Index 8
[2019-05-17] MEDS: metroNIDAZOLE 500 MG TAB PO SCH ×3 (06:28→21:58)
[2019-05-17] MEDS: INSULIN LISPRO 100 UNIT/ML SUB-Q SCH ×3 (08:28→16:48)
[2019-05-17] MEDS: metFORMIN XR 500MG TAB PO SCH ×2 (08:45→17:55)
[2019-05-17] MEDS: MAGNESIUM OXIDE 400 MG TAB PO SCH ×3 (08:45→21:58)
[2019-05-17] MEDS: CLOPIDOGREL 75 MG TAB PO SCH (10:01)
[2019-05-17] MEDS: PREGABALIN 75 MG CAP PO SCH ×2 (10:01→21:58)
[2019-05-17] MEDS: LORazepam 1 MG TAB PO SCH (10:01)
[2019-05-17] MEDS: FAMOTIDINE 20 MG TAB PO SCH ×2 (10:02→21:58)
[2019-05-17] MEDS: levETIRAcetam 500 MG TAB PO SCH ×2 (10:02→21:57)
[2019-05-17] MEDS: cefTRIAXone/NS 2 GM/100 ML 2 GM/100 ML BAG IV SCH (10:05)
[2019-05-17] MEDS: SODIUM BICARBONATE 650 MG TAB PO SCH (10:06)
[2019-05-17] MEDS: SERTRALINE 25 MG TAB PO SCH (10:07)
[2019-05-17] MEDS: HEPARIN 5,000 UNIT/1 ML VIAL SUB-Q SCH ×2 (10:08→21:58)
[2019-05-17] MEDS: CITALOPRAM 10 MG TAB PO SCH (10:10)
[2019-05-17] MEDS: POLYETHYLENE GLYCOL 3350 17 GM POWDER PO SCH (10:11)
[2019-05-17] MEDS: SODIUM HYPOCHLORITE, DAKIN'S 1/2 STRENGTH (0.25%) 473 ML TOPICAL SOLN TP SCH ×2 (10:26→22:01)
--- NOTE | 2019-05-17 12:41 | Progress Note ---
Assessment and Plan 68 yo F s/p excisional debridement of infected sacral decubitus ulcer - stage 4, on 05/08/19 1. infected/necrotic sacral wound with osteomyelitis 2. malnutrition 3. hematuria 4. UTI CT scan Pelvis - early osteomyelitis of sacrum Plan: 1. Reg diet with nutritional supplements 2. Group Insurance Special Agent on board 3. Offloading 4. IV abx per ID recs 5. Change to mesalt packing to wound as per field supervisor seed production instructions. Will assess for wound vac as outpatient. Follow up in wound care clinic on discharge. Plan discussed with patient. Will s/o. Thank you, please call with questions. Subjective Date of service: 05/17/19 Narrative: Patient seen and examined. She still complains of pain near the sacral wound. She states it's difficult to get comfortable. She is trying to eat and has a good appetite. No fevers or chills. Objective Vital Signs - 12hr 05/17/19 05/17/19 05/17/19 01:16 02:16 03:16 Temperature 98.6 F Pulse Rate 76 Respiratory 18 18 20 Rate Blood Pressure 124/53 O2 Sat by Pulse 98 Oximetry 05/17/19 07:59 Temperature 99.2 F Pulse Rate 64 Respiratory 18 Rate Blood Pressure 123/44 O2 Sat by Pulse 97 Oximetry - General physical appearance Narrative Exam: Gen.: Awake, alert, oriented 3. No apparent distress CV: S1, S2 present respiratory: No audible wheezes Extremities: No clubbing, cyanosis, edema Sacrum: Dressing is clean dry and intact. echo technologist photos reviewed. - Labs 05/12/19 03:56 05/17/19 05:35 Diabetes panel 05/17/19 Range/Units 05:35 Sodium 138 (137-145) mmol/L Potassium 4.4 (3.6-5.0) mmol/L Chloride 103.0 (98-107) mmol/L Carbon Dioxide 22 (22-30) mmol/L BUN 4 L (7-17) mg/dL Creatinine < 0.2 L (0.7-1.2) mg/dL Glucose 144 H (65-100) mg/dL Calcium 8.7 (8.4-10.2) mg/dL Calcium panel 05/17/19 Range/Units 05:35 Calcium 8.7 (8.4-10.2) mg/dL Pituitary panel 05/17/19 Range/Units 05:35 Sodium 138 (137-145) mmol/L Potassium 4.4 (3.6-5.0) mmol/L Chloride 103.0 (98-107) mmol/L Carbon Dioxide 22 (22-30) mmol/L BUN 4 L (7-17) mg/dL Creatinine < 0.2 L (0.7-1.2) mg/dL Glucose 144 H (65-100) mg/dL Calcium 8.7 (8.4-10.2) mg/dL Adrenal panel 05/17/19 Range/Units 05:35 Sodium 138 (137-145) mmol/L Potassium 4.4 (3.6-5.0) mmol/L Chloride 103.0 (98-107) mmol/L Carbon Dioxide 22 (22-30) mmol/L BUN 4 L (7-17) mg/dL Creatinine < 0.2 L (0.7-1.2) mg/dL Glucose 144 H (65-100) mg/dL Calcium 8.7 (8.4-10.2) mg/dL
--- NOTE | 2019-05-17 16:46 | Progress Note ---
Assessment and Plan Assessment and plan: 68 yo female with history of CVA admitted on due to blood in urine and a worsening buttocks sore with foul smelling drainage. Per patient, she was hospitalized for 18 days at outside facility in September 2018 and developed sacral wound. In the ED, temp 99.7, HR 83, R 15, BP 121/55. WBC 13. Creat 0.2. UA >182 wbc. Blood culture 05/07/2019 so far negative. Urine culture 05/07/2019 <10K bacteria. She underwent beside debridement on 05/08. Wound culture 05/08/2019 grew E.coli and Proteus. Pelvis CT suggestive of osteo, will need 6 weeks of abx. /Infected Sacral decubitus ulcer, stage iv with sacral osteomylitis Wound care and Surgery consulted s/p I and D on 05/08 - wound cx positive for E. Coli and Proteus consulted ID - continue IV cefepime 2 gm IV q 8 hour and metronidazole for now for discharge: ceftriaxone 2 gm IV qday for 6 weeks till 06/19/2019. PICC line order placed. 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 cont plavix PT/OT following / HTN (hypertension) BP trended down but stable will cont to hold her amlodipine and coreg / DM2 type 2, controlled cont SSI and Metformin A1c ~ 5 /Anemia of CD H/H stable monitor and transfuse for hb<7 Hypokalemia Repleted and improved Hypomagnesemia -on both oral and IV repletion, will monitor level Hypotension -probably due to vol depletion -s/p IVF bolus, BP stable Metabolic acidosis -On oral repletion, improving Seizure disorder cont keppra Urinary incontinence cont oxybytunin Dementia without beh dist cont home meds /Moderate PCM nutrition following Chronic debility Per pt's daughter, patient was bedbound prior to admission Continue supportive care /DVT prophylaxis On Heparin Disp: Awaiting SNH placement for IV antibiotic infusion, f/u with spring encaser. Awaiting SNF placement, plan for outpatient antibiotics, orders placed by ID History Interval history: Review of systems Constitutional: No fevers, no malaise, no joint pains CVS: No chest pain, no orthopnea, no pedal edema GI: No abdominal pain, no diarrhea, no vomiting, no constipation Respiratory: , no wheezing, no coughing Hospitalist Physical - Physical exam Narrative exam: General.: Appears well, no distress, nontoxic HEENT: Moist mucous membranes, extraocular muscles intact, no lymphadenopathy Neck: supple Cardiac: S1-S2 heard Lungs: clear to auscultation bilaterally Abdomen: soft , nontender, nondistended, bowel sounds positive Extremities: no edema clubbing or cyanosis Skin: Sacral dressing was not removed Neurologic: no gross focal deficits Psych: calm, and cooperative - Constitutional Vitals: Temp Pulse Resp BP Pulse Ox 99.6 F 80 18 136/60 99 05/17/19 13:36 05/17/19 13:36 05/17/19 13:36 05/17/19 13:36 05/17/19 13:36 General appearance: Present: no acute distress Results - Labs CBC & Chem 7: 05/12/19 03:56 05/17/19 05:35 Labs: Laboratory Last Values WBC 10.2 K/mm3 (4.5-11.0) 05/12/19 03:56 RBC 3.06 M/mm3 (3.65-5.03) L 05/12/19 03:56 Hgb 8.0 gm/dl (10.1-14.3) L 05/12/19 03:56 Hct 24.3 % (30.3-42.9) L 05/12/19 03:56 MCV 79 fl (79-97) 05/12/19 03:56 MCH 26 pg (28-32) L 05/12/19 03:56 MCHC 33 % (30-34) 05/12/19 03:56 RDW 14.6 % (13.2-15.2) 05/12/19 03:56 Plt Count 436 K/mm3 (140-440) 05/12/19 03:56 Lymph % (Auto) 24.6 % (13.4-35.0) 05/10/19 04:33 [place] % (Auto) 7.8 % (0.0-7.3) H 05/10/19 04:33 Eos % (Auto) 5.1 % (0.0-4.3) H 05/10/19 04:33 Baso % (Auto) 0.8 % (0.0-1.8) 05/10/19 04:33 Lymph # 2.3 K/mm3 (1.2-5.4) 05/10/19 04:33 [place] # 0.7 K/mm3 (0.0-0.8) 05/10/19 04:33 Eos # 0.5 K/mm3 (0.0-0.4) H 05/10/19 04:33 Baso # 0.1 K/mm3 (0.0-0.1) 05/10/19 04:33 Seg Neutrophils % 61.7 % (40.0-70.0) 05/10/19 04:33 Seg Neutrophils # 5.8 K/mm3 (1.8-7.7) 05/10/19 04:33 Sodium 138 mmol/L (137-145) 05/17/19 05:35 Potassium 4.4 mmol/L (3.6-5.0) 05/17/19 05:35 Chloride 103.0 mmol/L (98-107) 05/17/19 05:35 Carbon Dioxide 22 mmol/L (22-30) 05/17/19 05:35 Anion Gap 17 mmol/L 05/17/19 05:35 BUN 4 mg/dL (7-17) L 05/17/19 05:35 Creatinine < 0.2 mg/dL (0.7-1.2) L 05/17/19 05:35 Estimated GFR > 60 ml/min 05/17/19 05:35 BUN/Creatinine Ratio 20 % 05/17/19 05:35 Glucose 144 mg/dL (65-100) H 05/17/19 05:35 POC Glucose 120 (70-105) H 05/17/19 11:50 Hemoglobin A1c 5.3 % (4-6) 05/07/19 13:00 Lactic Acid 0.90 mmol/L (0.7-2.0) 05/07/19 13:00 Calcium 8.7 mg/dL (8.4-10.2) 05/17/19 05:35 Magnesium 1.20 mg/dL (1.7-2.3) L 05/17/19 05:35 Total Bilirubin 0.30 mg/dL (0.1-1.2) 05/08/19 04:18 AST 16 units/L (5-40) 05/08/19 04:18 ALT 11 units/L (7-56) 05/08/19 04:18 Alkaline Phosphatase 81 units/L (35-129) 05/08/19 04:18 C-Reactive Protein 6.40 mg/dL (0.00-1.30) H 05/09/19 17:42 Total Protein 5.9 g/dL (6.3-8.2) L 05/08/19 04:18 Albumin 2.7 g/dL (3.9-5) L 05/08/19 04:18 Albumin/Globulin Ratio 0.8 % 05/08/19 04:18 Prealbumin 0.078 g/L (0.200-0.400) L 05/09/19 04:02 Urine Color Red (Yellow) 05/07/19 13:30 Urine Turbidity Turbid (Clear) 05/07/19 13:30 Urine pH TNR 05/07/19 13:30 Ur Specific [place] TNR 05/07/19 13:30 Urine Protein TNR 05/07/19 13:30 Urine Glucose (UA) TNR 05/07/19 13:30 Urine Ketones TNR 05/07/19 13:30 Urine Blood TNR 05/07/19 13:30 Urine Nitrite TNR 05/07/19 13:30 Ur Reducing Substances Not Reportable 05/07/19 13:30 Urine Bilirubin TNR 05/07/19 13:30 Urine Ictotest TNR 05/07/19 13:30 Urine Urobilinogen TNR 05/07/19 13:30 Ur Leukocyte Esterase TNR 05/07/19 13:30 Urine WBC (Auto) > 182.0 /HPF (0.0-6.0) H 05/07/19 13:30 Urine RBC (Auto) 2.0 /HPF (0.0-6.0) 05/07/19 13:30 U Epithel Cells (Auto) 11.0 /HPF (0-13.0) 05/07/19 13:30 Urine Bacteria (Auto) 2+ /HPF (Negative) 05/07/19 13:30 Urine Mucus Few /HPF 05/07/19 13:30 Active Medications - Current Medications Current Medications: Generic Name Dose Route Start Last Admin Trade Name Freq PRN Reason Stop Dose Admin Acetaminophen 650 mg 05/07/19 16:08 05/10/19 13:29 Tylenol PO 650 mg Q4H PRN Administration Pain MILD(1-3)/Fever >100.5/NARAYAN Citalopram Hydrobromide 10 mg 05/08/19 10:00 05/17/19 10:10 Celexa PO 10 mg QDAY JORDON Administration Clopidogrel Bisulfate 75 mg 05/08/19 10:00 05/17/19 10:01 Plavix PO 75 mg QDAY JORDON Administration Famotidine 20 mg 05/08/19 10:00 05/17/19 10:02 Pepcid PO 20 mg BID JORDON Administration Heparin Sodium (Porcine) 5,000 unit 05/08/19 10:00 05/17/19 10:08 Heparin SUB-Q 5,000 unit Q12HR JORDON Administration Sodium Chloride 500 mls @ 50 mls/hr 05/13/19 13:00 Nacl 0.9% 500 Ml IV DIRECT JORDON Ceftriaxone Sodium 2 gm in 100 mls @ 200 mls/hr 05/14/19 11:00 05/17/19 10:05 Rocephin/Ns 2 Gm/100 Ml IV 06/19/19 23:59 200 mls/hr Q24HR JORDON Administration Insulin Human Lispro 0 unit 05/08/19 00:15 05/17/19 11:57 Humalog SUB-Q Not Given ACHS JORDON Protocol Levetiracetam 1,000 mg 05/07/19 23:00 05/17/19 10:02 Keppra PO 1,000 mg BID JORDON Administration Lorazepam 1 mg 05/08/19 10:00 05/17/19 10:01 Ativan PO 1 mg DAILY JORDON Administration Magnesium Oxide 400 mg 05/16/19 14:00 05/17/19 14:38 Mag-Ox PO 400 mg TID JORDON Administration Metformin HCl 1,000 mg 05/08/19 08:00 05/17/19 08:45 Glucophage Xr PO 1,000 mg BIDDIAB JORDON Administration Metronidazole 500 mg 05/12/19 14:00 05/17/19 14:39 Flagyl PO 06/19/19 22:01 500 mg Q8HR JORDON Administration Protocol Ondansetron HCl 4 mg 05/07/19 16:08 05/14/19 07:02 Zofran IV 4 mg Q8H PRN Administration Nausea And Vomiting Oxybutynin Chloride 5 mg 05/08/19 22:00 05/16/19 22:29 Ditropan PO 5 mg HS JORDON Administration Oxycodone/Acetaminophen 2 tab 05/13/19 14:55 05/17/19 01:16 Percocet 5/325 PO 2 tab Q4H PRN Administration Pain, Moderate (4-6) Polyethylene Glycol 17 gm 05/14/19 12:00 05/17/19 10:11 Miralax 3350 PO Not Given QDAY JORDON Pregabalin 300 mg 05/07/19 23:00 05/17/19 10:01 Pregabalin PO 300 mg BID JORDON Administration Senna/Docusate Sodium 1 tab 05/14/19 12:00 05/17/19 12:01 Senokot S PO Not Given Q12H JORDON Sertraline HCl 25 mg 05/08/19 10:00 05/17/19 10:07 Zoloft PO 25 mg QDAY JORDON Administration Sodium Chloride 10 ml 05/07/19 16:08 Sodium Chloride Flush Syringe 10 Ml IV PRN PRN LINE FLUSH Sodium Chloride 10 ml 05/08/19 10:00 05/17/19 10:08 Sodium Chloride Flush Syringe 10 Ml IV 10 ml BID JORDON Administration Sodium Hypochlorite 1 applic 05/08/19 14:00 05/17/19 10:26 Dakin's Half Strength TP 1 applicatio BID JORDON Administration Nutrition/Malnutrition Assess - Dietary Evaluation Nutrition/Malnutrition Findings: Nutrition Notes Start: 05/08/19 11:00 Freq: Status: Active Protocol: Document 05/17/19 12:49 LP (Rec: 05/17/19 12:52 LP [id number]) Nutrition Notes Initial or Follow up Reassessment Current Diagnosis Decubitus(Pressure Ulcer), Diabetes,Hypertension,Stroke Other Pertinent Diagnosis Dementia, UTI, Stage 4 sacral wound, SIRS Current Diet Cardiac Labs/Tests Reviewed Pertinent Medications Reviewed Height 5 ft 5 in Weight 59.7 kg [place] Body Weight (kg) 56.81 BMI 21.9 Subjective/Other Information Pt states eating well this AM 100%. Pt states she still wants supplement and with her wound she needs the extra protein. Percent of energy/protein needs met: 100%/100% Burn Absent Trauma Absent Minimum of two criteria Yes Energy Intake (severe) < or equal to 50% Estimated Energy Requirement > or equal to 5 days Interpretation of Weight Loss (severe) >5% in 1 month Body Fat Depletion Mild depletion (non-severe) Reduced [employer] Aide Strength Measurably Reduced (severe) #2 Nutrition Diagnosis Increased nutrient needs ( specify in comment below) Diagnosis Progress(for reassessment Continues documentation) #1 Nutrition Diagnosis Malnutrition As Evidenced by Signs and Symptoms pt meeting 100% of calorie and 100% of protein needs Diagnosis Progress(for reassessment Improved documentation) Is patient on ventilator? No Is Patient Ambulatory and/or Out of Bed No REE-([facility]-confined to bed) 1347.456 Calculation Used for Recommendations [facility] Additional Notes Protein needs are 81-101g (1.2 -1.5g/kg) Fluid needs are 1ml/kcal Nutrition Intervention Change Diet Order: Continue cardiac Add Supplement/Snack (indicate name/kcal Ensure Enlive Chocolate BID /protein ) Provides kCal: 700 Provides Protein (gm) 40 Goal #1 Continue meeting at least 80% of kcal and protein needs via meals and ONS Goal #2 Wt maintenance Goal #3 Wound healing Anticipated Discharge Needs: Cardiac diet with ONS BID to TID Follow-Up By: 05/25/19 Additional Comments Follow for stable intakes
[2019-05-17] MEDS: OXYBUTYNIN 5 MG TAB PO SCH (21:58)
[2019-05-18] MEDS: oxyCODONE /ACETAMINOPHEN 5-325MG TAB PO PRN ×3 (00:21→14:16)
[2019-05-18] MEDS: SENNOSIDES/DOCUSATE SODIUM 8.6/50 MG TAB PO SCH ×2 (00:54→12:34)
[2019-05-18] MEDS: INSULIN LISPRO 100 UNIT/ML SUB-Q SCH ×4 (00:54→16:57)
[2019-05-18] MEDS: metroNIDAZOLE 500 MG TAB PO SCH ×2 (05:17→14:16)
[2019-05-18] MEDS: metFORMIN XR 500MG TAB PO SCH ×2 (08:47→17:19)
[2019-05-18] MEDS: cefTRIAXone/NS 2 GM/100 ML 2 GM/100 ML BAG IV SCH (09:00)
[2019-05-18] MEDS: FAMOTIDINE 20 MG TAB PO SCH (09:00)
[2019-05-18] MEDS: LORazepam 1 MG TAB PO SCH (09:00)
[2019-05-18] MEDS: SERTRALINE 25 MG TAB PO SCH (09:00)
[2019-05-18] MEDS: CLOPIDOGREL 75 MG TAB PO SCH (09:00)
[2019-05-18] MEDS: CITALOPRAM 10 MG TAB PO SCH (09:00)
[2019-05-18] MEDS: POLYETHYLENE GLYCOL 3350 17 GM POWDER PO SCH (09:00)
[2019-05-18] MEDS: levETIRAcetam 500 MG TAB PO SCH (09:00)
[2019-05-18] MEDS: HEPARIN 5,000 UNIT/1 ML VIAL SUB-Q SCH (09:01)
[2019-05-18] MEDS: SODIUM HYPOCHLORITE, DAKIN'S 1/2 STRENGTH (0.25%) 473 ML TOPICAL SOLN TP SCH (09:10)
[2019-05-18] MEDS: MAGNESIUM OXIDE 400 MG TAB PO SCH ×2 (11:25→14:16)
[2019-05-18] MEDS: PREGABALIN 75 MG CAP PO SCH (11:25)
--- NOTE | 2019-05-18 15:06 | Discharge Summary ---
Providers - Providers Date of Admission: 05/07/19 14:12 Attending physician: SHRUTHI NAGY MD 05/07/19 22:24 Consult to Physician [CONS] Routine Comment: Consulting Provider: CY FISH Physician Instructions: Reason For Exam: sacral decubitus ulcer 05/07/19 22:31 Consult to Wound/ET Nurse [CONS] Routine Reason For Exam: wound eval 05/08/19 12:59 Consult to Dietitian/Nutrition [CONS] Routine Physician Instructions: Reason For Exam: Reason for Consult: Malnutrition 05/08/19 13:50 Consult to Physician [CONS] Routine Comment: Consulting Provider: MARYSOL CADE Physician Instructions: Reason For Exam: infected sacral decubitus - stage 3 05/10/19 08:46 Physical Therapy Evaluation and Treat [CONS] Routine Comment: Reason For Exam: placement 05/10/19 17:22 Consult to Case Management [CONS] Stat Services Needed at Discharge: Other Notified:: suspension cord tier Additional Physician Instructions: [facility] Please infuse: ceftriaxone 2 gm IV q day total 6 week till 06/19 Diagnosis: Sacral wound osteomyelitis Labs: CBC, AST, ALT, CRP, creatinine every friday. fax results to [phone]. Critical labs call [phone] MD Prateek 05/12/19 09:18 Consult to PICC Line RN [CONS] Urgent Reason For Exam: terminologist IV antibiotic infusion Type Line:: PICC 05/12/19 14:48 Consult to Physician [CONS] Routine Comment: Consulting Provider: CINTHIA MCLEAN Physician Instructions: Reason For Exam: PICC LINE PLACEMENT Primary care physician: ANTHONY COLLADO Hospitalization Condition: Stable Hospital course: 68 yo female with history of CVA admitted on due to blood in urine and a worsening buttocks sore with foul smelling drainage. Per patient, she was hospitalized for 18 days at outside facility in September 2018 and developed sacral wound. In the ED, temp 99.7, HR 83, R 15, BP 121/55. WBC 13. Creat 0.2. UA >182 wbc. Blood culture 05/07/2019 so far negative. Urine culture 05/07/2019 <10K bacteria. She underwent beside debridement on 05/08. Wound culture 05/08/2019 grew E.coli and Proteus. Pelvis CT suggestive of osteo, will need 6 weeks of abx. /Infected Sacral decubitus ulcer, stage iv with sacral osteomylitis Wound care and Surgery input appreciated s/p I and D on 05/08 - wound cx positive for E. Coli and Proteus She was treated with antibiotics for discharge: ceftriaxone 2 gm IV qday for 6 weeks till 06/19/2019. Line was placed prior to discharge 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 cont plavix PT/OT following / HTN (hypertension) BP trended down but stable will cont to hold her amlodipine and coreg / DM2 type 2, controlled cont SSI and Metformin A1c ~ 5 /Anemia of CD H/H stable monitor and transfuse for hb<7 Hypokalemia Repleted and improved Hypomagnesemia Repleted Hypotension Was due to hypovolemia, resolved with IV fluids Seizure disorder cont keppra Urinary incontinence cont oxybytunin Dementia without beh dist cont home meds /Moderate PCM nutrition following Chronic debility Per pt's daughter, patient was bedbound prior to admission Continue supportive care /DVT prophylaxis On Heparin Preventative health counseling performed for 17 minutes Disposition: DC/TX-03 [facility] Time spent for discharge: 35 minutes Core Measure Documentation - Palliative Care Palliative Care/ Comfort Measures: Not Applicable - Core Measures Any of the following diagnoses?: none Exam - Physical Exam Narrative exam: General.: Appears well, no distress, nontoxic HEENT: Moist mucous membranes, extraocular muscles intact, no lymphadenopathy Neck: supple Cardiac: S1-S2 heard Lungs: clear to auscultation bilaterally Abdomen: soft , nontender, nondistended, bowel sounds positive Extremities: no edema clubbing or cyanosis Skin: Sacral dressing was not removed Neurologic: no gross focal deficits Psych: calm, and cooperative - Constitutional Vitals: Temp Pulse Resp BP Pulse Ox 100.1 F H 88 18 123/54 98 05/18/19 02:35 05/18/19 13:05 05/18/19 14:16 05/18/19 07:59 05/18/19 13:05 Plan Follow up with: ANTHONY COLLADO MD [Primary Care Provider] - 7 Days Prescriptions: Pregabalin [Lyrica] 300 mg PO BID #10 cap oxyCODONE /ACETAMINOPHEN [Percocet 5/325 mg] 2 tab PO Q4H PRN #7 tablet PRN Reason: Pain, Moderate (4-6) traMADoL [Ultram 50 MG tab] 50 mg PO Q6HR PRN #10 tab PRN Reason: Pain
[2019-05-18 16:46] VITALS: BP 118/59
[2019-05-18] MEDS: ACETAMINOPHEN 325 MG TAB PO PRN (17:21)
== END 2019-05-18 19:45 | DRG 853 ==
LOC: ED 11:40 → 2B-ACE 14:12
PROVIDERS: ADMIT Internal Medicine; ATTEND Internal Medicine
PROC: 0JB70ZZ Excision of Back Subcutaneous Tissue and Fascia, Open Approach (ICD-10-PCS; principal; 2019-05-08)
PROC: 02HV33Z Insertion of Infusion Device into Superior Vena Cava, Percutaneous Approach (ICD-10-PCS; 2019-05-13)
PROC: B5181ZA Fluoroscopy of Superior Vena Cava using Low Osmolar Contrast, Guidance (ICD-10-PCS; 2019-05-13)
PROC: B54MZZA Ultrasonography of Right Upper Extremity Veins, Guidance (ICD-10-PCS; 2019-05-13)
DX: A41.9 Sepsis, unspecified organism (principal); L89.153 Pressure ulcer of sacral region, stage 3; G92 Toxic encephalopathy; N39.0 Urinary tract infection, site not specified; M86.8X8 Other osteomyelitis, other site; I69.351 Hemiplegia and hemiparesis following cerebral infarction affecting right dominant side; E44.1 Mild protein-calorie malnutrition; E11.69 Type 2 diabetes mellitus with other specified complication; G89.29 Other chronic pain; M19.90 Unspecified osteoarthritis, unspecified site; F32.9 Major depressive disorder, single episode, unspecified; F03.90 Unspecified dementia, unspecified severity, without behavioral disturbance, psychotic disturbance, mood disturbance, and anxiety; I10 Essential (primary) hypertension; R31.0 Gross hematuria; D63.8 Anemia in other chronic diseases classified elsewhere; E87.6 Hypokalemia; E83.42 Hypomagnesemia; G40.909 Epilepsy, unspecified, not intractable, without status epilepticus; R32 Unspecified urinary incontinence; Z88.0 Allergy status to penicillin; Z88.2 Allergy status to sulfonamides; Z79.899 Other long term (current) drug therapy; Z74.01 Bed confinement status; Z68.21 Body mass index [BMI] 21.0-21.9, adult
CPT/HCPCS: 36415; 36569; 71045; 72193; 77001; 80048; 80053; 81001; 82140; 82962; 83036; 83735; 84134; 85014; 85018; 85025; 85027; 86140; 87040; 87076; 87086; 87116; 87186; 90686; 96365; G0378; A6260; C1751; J0692; J0696; J1170; J1644; J1815; J2250; J2270; J2405; J3010; J3246; J3370; J3475; J7030; J7040; J7042; J7050; Q9967

== ENCOUNTER 2019-08-05 17:19 | Emergency (ER) | payer MEDICARE ==
--- NOTE | 2019-08-05 17:50 | Emergency Department Report ---
- General Stated complaint: PRESSURE ULCER Time Seen by Provider: 08/05/19 17:26 Source: patient Mode of arrival: Stretcher Limitations: No Limitations - History of Present Illness Initial comments: 69-year-old wheelchair bound female with history of CVA resulting in right-sided deficits and chronic sacral decubitus ulcer with recent sepsis admission in June presents to the hospital complaining of sacral pain, bloody sacral wound discharge, and no wound care nurse visit since discharge from the hospital on July 20. Patient was admitted here July 15 into the for sepsis secondary to infected sacral decubitus ulcer. She was deemed not a candidate for surgical debridement and wished treated with wound care and wound VAC. Patient also received ID consult was treated with IV cefepime and vancomycin and discharged on Augmentin 875 mg twice daily, Doxy 100 mg twice daily x10 days. Patient also has an indwelling Clayton catheter due to chronic urinary incontinence as per patient complains of chronic suprapubic pain. As per discharge MAR patient was on fentanyl patch for pain and states that she is also been treated with tramadol but tramadol did not help her pain in the past. Selam eason lives at home with her daughter who has been assisting with her wound care. PMD: Dr. Anthony Collado. pt has keflex 500mg q 8 hours written on her current med list. - Related Data Home Medications Medication Instructions Recorded Confirmed Last Taken Metformin HCl [Fortamet ER] 1,000 mg PO BID 02/10/16 07/15/19 1 Day Ago ~02/09/16 1000 Citalopram [celeXA] 10 mg PO QDAY 05/07/19 07/15/19 Unknown Gabapentin 300 mg PO BID 05/07/19 07/15/19 Unknown LORazepam [Lorazepam] 1 mg PO DAILY 05/07/19 07/15/19 Unknown Oxybutynin [Ditropan] 5 mg PO HS 05/07/19 07/15/19 Unknown levETIRAcetam [Keppra TAB] 1,000 mg PO BID 05/07/19 07/15/19 Unknown Ondansetron (Nf) [Zofran TAB] 8 mg PO Q6H PRN 07/15/19 07/15/19 Unknown Sertraline [Zoloft] 35 mg PO DAILY 07/15/19 07/15/19 Unknown fentaNYL [Duragesic 50mcg] 50 mcg TD Q3D 07/15/19 07/15/19 Unknown Previous Rx's Medication Instructions Recorded Last Taken Type Clopidogrel [Plavix] 75 mg PO QDAY #30 tablet 02/11/16 Unknown Rx Acyclovir [Zovirax Tab] 400 mg PO Q8H #21 tab 03/17/19 Unknown Rx Pregabalin [Lyrica] 300 mg PO BID #10 cap 05/14/19 Unknown Rx Doxycycline Monohydrate 100 mg PO BID #20 capsule 07/20/19 Unknown Rx [Doxycycline Monohydrate CAP] cephALEXin [Keflex] 500 mg PO Q8HR #30 cap 07/20/19 Unknown Rx HYDROcodone/APAP 5-325 [[place] 1 each PO Q6HR PRN #30 tablet 08/05/19 Unknown Rx 5/325] Allergies Allergy/AdvReac Type Severity Reaction Status Date / Time Penicillins Allergy Rash Verified 05/07/19 12:13 Sulfa (Sulfonamide Allergy Rash Verified 05/07/19 12:13 Antibiotics) Abscess Boil HPI - HPI Stated Complaint: PRESSURE ULCER Time Seen by Provider: 08/05/19 17:26 Home Medications: Home Medications Medication Instructions Recorded Confirmed Last Taken Metformin HCl [Fortamet ER] 1,000 mg PO BID 02/10/16 07/15/19 1 Day Ago ~02/09/16 1000 Citalopram [celeXA] 10 mg PO QDAY 05/07/19 07/15/19 Unknown Gabapentin 300 mg PO BID 05/07/19 07/15/19 Unknown LORazepam [Lorazepam] 1 mg PO DAILY 05/07/19 07/15/19 Unknown Oxybutynin [Ditropan] 5 mg PO HS 05/07/19 07/15/19 Unknown levETIRAcetam [Keppra TAB] 1,000 mg PO BID 05/07/19 07/15/19 Unknown Ondansetron (Nf) [Zofran TAB] 8 mg PO Q6H PRN 07/15/19 07/15/19 Unknown Sertraline [Zoloft] 35 mg PO DAILY 07/15/19 07/15/19 Unknown fentaNYL [Duragesic 50mcg] 50 mcg TD Q3D 07/15/19 07/15/19 Unknown Previous Rx's Medication Instructions Recorded Last Taken Type Clopidogrel [Plavix] 75 mg PO QDAY #30 tablet 02/11/16 Unknown Rx Acyclovir [Zovirax Tab] 400 mg PO Q8H #21 tab 03/17/19 Unknown Rx Pregabalin [Lyrica] 300 mg PO BID #10 cap 05/14/19 Unknown Rx Doxycycline Monohydrate 100 mg PO BID #20 capsule 07/20/19 Unknown Rx [Doxycycline Monohydrate CAP] cephALEXin [Keflex] 500 mg PO Q8HR #30 cap 07/20/19 Unknown Rx HYDROcodone/APAP 5-325 [[place] 1 each PO Q6HR PRN #30 tablet 08/05/19 Unknown Rx 5/325] Allergies/Adverse Reactions: Allergies Allergy/AdvReac Type Severity Reaction Status Date / Time Penicillins Allergy Rash Verified 05/07/19 12:13 Sulfa (Sulfonamide Allergy Rash Verified 05/07/19 12:13 Antibiotics) ED Review of Systems ROS: Stated complaint: PRESSURE ULCER Other details as noted in HPI ED Past Medical Hx - Past Medical History Hx Hypertension: Yes Hx CVA: Yes (right side deficit,URINARY INCONTINENCE) Hx Heart Attack/AMI: No Hx Congestive Heart Failure: No Hx Diabetes: Yes Hx Deep Vein Thrombosis: No Hx Pulmonary Embolism: No Hx GERD: No Hx Liver Disease: No Hx Renal Disease: No Hx Sickle Cell Disease: No Hx Arthritis: Yes Hx Headaches / Migraines: No Hx Seizures: Yes Hx Kidney Stones: No Hx Psychiatric Treatment: Yes (depression) Hx Asthma: No Hx COPD: No Hx Tuberculosis: No Hx Dementia: Yes Hx HIV: No Additional medical history: high cholesterol - Surgical History Hx Pacemaker: No Hx Internal Defibrillator: No Additional Surgical History: back surgery - Social History Smoking Status: Never Smoker - Medications Home Medications: Home Medications Medication Instructions Recorded Confirmed Last Taken Type Metformin HCl [Fortamet ER] 1,000 mg PO BID 02/10/16 07/15/19 1 Day Ago History ~02/09/16 1000 Clopidogrel [Plavix] 75 mg PO QDAY #30 tablet 02/11/16 07/15/19 Unknown Rx Acyclovir [Zovirax Tab] 400 mg PO Q8H #21 tab 03/17/19 07/15/19 Unknown Rx Citalopram [celeXA] 10 mg PO QDAY 05/07/19 07/15/19 Unknown History Gabapentin 300 mg PO BID 05/07/19 07/15/19 Unknown History LORazepam [Lorazepam] 1 mg PO DAILY 05/07/19 07/15/19 Unknown History Oxybutynin [Ditropan] 5 mg PO HS 05/07/19 07/15/19 Unknown History levETIRAcetam [Keppra TAB] 1,000 mg PO BID 05/07/19 07/15/19 Unknown History Pregabalin [Lyrica] 300 mg PO BID #10 cap 05/14/19 07/15/19 Unknown Rx Ondansetron (Nf) [Zofran TAB] 8 mg PO Q6H PRN 07/15/19 07/15/19 Unknown History Sertraline [Zoloft] 35 mg PO DAILY 07/15/19 07/15/19 Unknown History fentaNYL [Duragesic 50mcg] 50 mcg TD Q3D 07/15/19 07/15/19 Unknown History Doxycycline Monohydrate 100 mg PO BID #20 capsule 07/20/19 Unknown Rx [Doxycycline Monohydrate CAP] cephALEXin [Keflex] 500 mg PO Q8HR #30 cap 07/20/19 Unknown Rx HYDROcodone/APAP 5-325 [[place] 1 each PO Q6HR PRN #30 tablet 08/05/19 Unknown Rx 5/325] ED Physical Exam - Other Other exam information: General: No acute distress Head: Atraumatic Eyes: normal appearance ENT: Moist mucous membranes Neck: Normal appearance, no midline tenderness Chest: Clear to auscultation bilaterally CV: Regular rate and rhythm Abdomen: Soft, normal bowel sounds, nontender, nondistended, no rebound or gu arding Back: Normal inspection Extremity: Normal inspection, full range of motion Neuro: Alert O x 3, no facial asymmetry, speech clear, right-sided weakness compared to the left which is chronic as per patient Psych: Appropriate behavior Skin: stage III t sacral cubitus ulcer without active bleeding. Mild yellow exudate without surrounding cellulitis ED Course Vital Signs 08/05/19 08/05/19 17:58 18:04 Temperature 98.7 F Pulse Rate 16 L 83 Respiratory 16 16 Rate Blood Pressure 143/53 Blood Pressure 138/58 [Left] O2 Sat by Pulse 98 99 Oximetry ED Medical Decision Making - Lab Data Result diagrams: 08/05/19 18:08 08/05/19 18:08 Lab Results 08/05/19 08/05/19 08/05/19 Range/Units 18:08 18:08 21:30 WBC 7.0 (4.5-11.0) K/mm3 RBC 3.80 (3.65-5.03) M/mm3 Hgb 8.7 L (10.1-14.3) gm/dl Hct 27.3 L (30.3-42.9) % MCV 72 L (79-97) fl MCH 23 L (28-32) pg MCHC 32 (30-34) % RDW 19.6 H (13.2-15.2) % Plt Count 464 H (140-440) K/mm3 Lymph % (Auto) 26.3 (13.4-35.0) % Wood % (Auto) 5.5 (0.0-7.3) % Eos % (Auto) 7.5 H (0.0-4.3) % Baso % (Auto) Histology Tech Lymph # 1.8 (1.2-5.4) K/mm3 Wood # 0.4 (0.0-0.8) K/mm3 Eos # 0.5 H (0.0-0.4) K/mm3 Baso # 0.1 (0.0-0.1) K/mm3 Seg Neutrophils % 59.3 (40.0-70.0) % Seg Neutrophils # 4.2 (1.8-7.7) K/mm3 Sodium 142 (137-145) mmol/L Potassium 3.2 L (3.6-5.0) mmol/L Chloride 106.6 (98-107) mmol/L Carbon Dioxide 23 (22-30) mmol/L Anion Gap 16 mmol/L BUN 6 L (7-17) mg/dL Creatinine < 0.2 L (0.7-1.2) mg/dL Estimated GFR > 60 ml/min BUN/Creatinine Ratio 30 % Glucose 107 H (65-100) mg/dL POC Glucose (70-105) Calcium 8.6 (8.4-10.2) mg/dL Magnesium 1.10 L (1.7-2.3) mg/dL Total Bilirubin 0.20 (0.1-1.2) mg/dL AST 11 (5-40) units/L ALT < 5 L (7-56) units/L Alkaline Phosphatase 105 (35-129) units/L Total Protein 6.2 L (6.3-8.2) g/dL Albumin 3.0 L (3.9-5) g/dL Albumin/Globulin Ratio 0.9 % Urine Color Yellow (Yellow) Urine Turbidity Slightly-cloudy (Clear) Urine pH 5.0 (5.0-7.0) Ur Specific [place] 1.028 (1.003-1.030) Urine Protein 30 mg/dl (Negative) mg/dL Urine Glucose (UA) Neg (Negative) mg/dL Urine Ketones Neg (Negative) mg/dL Urine Blood Neg (Negative) Urine Nitrite Neg (Negative) Urine Bilirubin Neg (Negative) Urine Urobilinogen < 2.0 (<2.0) mg/dL Ur Leukocyte Esterase Mod (Negative) Urine WBC (Auto) 73.0 H (0.0-6.0) /HPF Urine RBC (Auto) 37.0 (0.0-6.0) /HPF U Epithel Cells (Auto) (0-13.0) /HPF Urine Bacteria (Auto) 4+ (Negative) /HPF Hyaline Casts /LPF Urine Mucus Few /HPF Urine Yeast (Budding) 3+ /HPF Urine Sperm Few (TELETYPE MECHANIC) /HPF 08/05/19 08/05/19 Range/Units 21:55 Unknown WBC (4.5-11.0) K/mm3 RBC (3.65-5.03) M/mm3 Hgb (10.1-14.3) gm/dl Hct (30.3-42.9) % MCV (79-97) fl MCH (28-32) pg MCHC (30-34) % RDW (13.2-15.2) % Plt Count (140-440) K/mm3 Lymph % (Auto) (13.4-35.0) % Wood % (Auto) (0.0-7.3) % Eos % (Auto) (0.0-4.3) % Baso % (Auto) Lymph # (1.2-5.4) K/mm3 Wood # (0.0-0.8) K/mm3 Eos # (0.0-0.4) K/mm3 Baso # (0.0-0.1) K/mm3 Seg Neutrophils % (40.0-70.0) % Seg Neutrophils # (1.8-7.7) K/mm3 Sodium (137-145) mmol/L Potassium (3.6-5.0) mmol/L Chloride (98-107) mmol/L Carbon Dioxide (22-30) mmol/L Anion Gap mmol/L BUN (7-17) mg/dL Creatinine (0.7-1.2) mg/dL Estimated GFR ml/min BUN/Creatinine Ratio % Glucose (65-100) mg/dL POC Glucose 86 (70-105) Calcium (8.4-10.2) mg/dL Magnesium (1.7-2.3) mg/dL Total Bilirubin (0.1-1.2) mg/dL AST (5-40) units/L ALT (7-56) units/L Alkaline Phosphatase (35-129) units/L Total Protein (6.3-8.2) g/dL Albumin (3.9-5) g/dL Albumin/Globulin Ratio % Urine Color Yellow (Yellow) Urine Turbidity Slightly-cloudy (Clear) Urine pH 6.0 (5.0-7.0) Ur Specific [place] 1.012 (1.003-1.030) Urine Protein <15 mg/dl (Negative) mg/dL Urine Glucose (UA) Neg (Negative) mg/dL Urine Ketones Neg (Negative) mg/dL Urine Blood Sm (Negative) Urine Nitrite Neg (Negative) Urine Bilirubin Neg (Negative) Urine Urobilinogen < 2.0 (<2.0) mg/dL Ur Leukocyte Esterase Sm (Negative) Urine WBC (Auto) 22.0 H (0.0-6.0) /HPF Urine RBC (Auto) 34.0 (0.0-6.0) /HPF U Epithel Cells (Auto) 1.0 (0-13.0) /HPF Urine Bacteria (Auto) 2+ (Negative) /HPF Hyaline Casts 5 /LPF Urine Mucus Few /HPF Urine Yeast (Budding) 3+ /HPF Urine Sperm (TELETYPE MECHANIC) /HPF - Medical Decision Making As per medical record review it appears that [facility] attempted to reach out to family with number provided on chart which is the daughter's cell phone number. As per case management note on 07/23 (after pt d/c) No one answered the phone and the voice mailbox was full so they were unable to make contact with the pt after d/c. No alternative numbers were listed. As per med record it was also recommended that patient follow-up with Dr. Cade infectious disease in 2 weeks after discharge. At this time patient is sacral decubitus does not seem to be acutely infected and patient is not septic. Local wound care provided with dressing change in the ED. Patient was provided pain medication. Patient has a chronic Cl[place] catheter and previous urine cultures were polymicrob ial and likely contaminated. 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 Additional antibiotics would not be prescribed at this time since no signs of clinical infection and Keflex is listed as a medication outpatient med list. Patient will be provided the number for [place] [facility] so they may call to inquire about home health services as well. A note will be placed in her chart for case management consult and patient's cell phone number [phone] will be provided. Patient will be encouraged to follow-up with wound care clinic as well as infectious disease doctor for further treatment of her chronic sacral decubitus ulcer. As per ID note chronic osteomyelitis also noted without recommendation for prolonged antibiotic therapy. Pt received IV mag and PO kcl to supplement electrolyte deficiency Pain medicine also provided and will be prescribed upon discharge - Differential Diagnosis infected sacral ulcer, chronic pain Critical Care Time: No Critical care attestation.: If time is entered above; I have spent that time in minutes in the direct care of this critically ill patient, excluding procedure time. ED Disposition Clinical Impression: Chronic back pain, CVA, old, hemiparesis, Sacral decubitus ulcer, stage III Disposition: DC-01 TO HOME OR SELFCARE Is pt being admited?: No Does the pt Need Aspirin: No Condition: Stable Instructions: Chronic Pain (ED), Pressure Ulcer (ED) Additional Instructions: Take the medication as prescribed. Follow-up with your doctor or doctor/clinic provided. Return if symptoms worsen as indicated by your discharge instructions. It is very important that you follow up with the Infectious disease doctor and wound care clinic. After your discharge to [facility] attempted to reach out to the number provided on the chart at [phone]. No one answered the phone and they were unable to leave a message since the voice mailbox was full and no alternative phone number was provided. You may reach [facility] at [phone]. Also the provided phone number for Teresa Ricketts [phone] will be placed on the chart for case management to follow-up. Prescriptions: HYDROcodone/APAP 5-325 [[place] 5/325] 1 each PO Q6HR PRN #30 tablet PRN Reason: Pain , Severe (7-10) Referrals: ANTHONY COLLADO MD [Primary Care Provider] - 3-5 Days (Primary care doctor) [facility] [Outside] - 3-5 Days (Wound care clinic) MARYSOL CADE MD [Staff Physician] - 3-5 Days (Infectious disease ) Time of Disposition: 22:31
[2019-08-05] MEDS: oxyCODONE /ACETAMINOPHEN 5-325MG TAB PO ONE (18:25)
[2019-08-05 18:40] LABS: BUN/Creatinine Ratio 30; Blood Urea Nitrogen 6 mg/dL (7-17); Calcium 8.6 mg/dL (8.4-10.2); Hemolysis Index 6
[2019-08-05 18:43] LABS: Alanine Aminotransferase < 5 units/L (7-56)
[2019-08-05 18:47] LABS: Bacteria,Urine 2+ /HPF (Negative); Bilirubin,Urine NEG (Negative); Blood,Urine SM (Negative); Color,Urine Yellow (Yellow); Hyaline Casts,Urine 5 /LPF; Mucus,Urine FEW /HPF; Protein,Urine <15 mg/dL mg/dL (Negative); Urobilinogen,Urine < 2.0 mg/dL (<2.0)
[2019-08-05 18:52] LABS: Basophils # (Auto) 0.1 K/mm3 (0.0-0.1); Eosinophils # (Auto) 0.5 K/mm3 (0.0-0.4); Eosinophils % (Auto) 7.5 % (0.0-4.3); Hematocrit 27.3 % (30.3-42.9); Hemoglobin 8.7 gm/dl (10.1-14.3); Lymphocytes # (Auto) 1.8 K/mm3 (1.2-5.4); Lymphocytes % (Auto) 26.3 % (13.4-35.0); Mean Corpuscular HGB Conc 32 % (30-34); Mean Corpuscular Volume 72 fl (79-97); Monocytes # (Auto) 0.4 K/mm3 (0.0-0.8); Monocytes % (Auto) 5.5 % (0.0-7.3); Platelet Count 464 K/mm3 (140-440); Red Cell Distribution Width 19.6 % (13.2-15.2)
[2019-08-05] MEDS: MAGNESIUM SULFATE 2 GM/50 ML BAG IV ONE (21:30)
[2019-08-05 21:49] LABS: Bacteria,Urine 4+ /HPF (Negative); Bilirubin,Urine NEG (Negative); Blood,Urine NEG (Negative); Color,Urine Yellow (Yellow); Mucus,Urine FEW /HPF; Sperm,Urine FEW /HPF (NP); Urobilinogen,Urine < 2.0 mg/dL (<2.0)
[2019-08-05] MEDS: MORPHINE 4 MG/1 ML INJ IV ONE ×2 (22:34→22:44)
[2019-08-05] MEDS ORDERED: POTASSIUM CHLORIDE ER 20 MEQ TAB PO ONE (22:40)
[2019-08-05] MEDS: ONDANSETRON 4 MG/2 ML INJ IV ONE (22:44)
[2019-08-05] MEDS: POTASSIUM CHLORIDE ER 20 MEQ TAB PO ONE (22:44)
[2019-08-06 03:33] VITALS: BP 135/51
== END 2019-08-06 02:21 | disposition home or self-care (01) ==
LOC: ED 17:19
DX: I63.9 Cerebral infarction, unspecified (principal); L89.153 Pressure ulcer of sacral region, stage 3; M54.5 Low back pain; G89.29 Other chronic pain; I10 Essential (primary) hypertension; E11.9 Type 2 diabetes mellitus without complications; M19.90 Unspecified osteoarthritis, unspecified site; F32.9 Major depressive disorder, single episode, unspecified; Z79.899 Other long term (current) drug therapy; Z88.0 Allergy status to penicillin; Z88.2 Allergy status to sulfonamides
CPT/HCPCS: 36415; 80053; 81001; 82962; 83735; 85025; 87086; 96365; 96375; 99284; J2270; J2405; J3475; 87076; 87186

== ENCOUNTER 2019-08-15 22:18 | Emergency (ER) | payer MEDICARE ==
[2019-08-15] MEDS ORDERED: HYDROmorphone 1 MG/1 ML INJ IM ONE (23:01)
--- NOTE | 2019-08-15 23:11 | Emergency Department Report ---
ED General Adult HPI - General Chief complaint: Wound/Laceration Stated complaint: SKIN PROBLEM Time Seen by Provider: 08/15/19 22:27 Source: patient, EMS ( EMS documentation not available at time of chart dictation ), RN notes reviewed, old records reviewed Mode of arrival: Stretcher Limitations: Physical Limitation - History of Present Illness Initial comments: The patient is a 69-year-old female. I have evaluated and seen this patient in the past. I was present 10 days ago during her recent ER visit, when she was seen by my colleague, Dr. Torres the patient has a past medical history of sacral decubitus ulcer, not a candidate for debridement, supposed to have Dakin's to sacral wound twice daily, candidate for wound VAC placement, with case alireza rincon. Also has history of hypokalemia, and hypomagnesemia She was admitted to this hospital in June for an infected wound. She was seen by infectious disease, who recommended wound care to be the mainstay of treatment, along with treatment of cellulitis and superficial infection. Infectious disease also felt that "it is presently medically futile to attempt to treat osteomyelitis with prolonged antibiotics. We will treat as soft tissue infection as above. If she needs flap coverage in the future, will consider prolonged antibiotics at that time. She was given cefepime and vancomycin while recently inpatient, and discharged with Augmentin, and doxycycline. She was supposed to follow-up in the infectious disease clinic, and it appears that the schedulers notified, and the patient was given information for the infectious disease clinic. As per review of medical record, [facility] attempted to reach out to family member with number provided on the chart which is the daughter cell phone number, and as per case management documentation on July 23 after patient was discharged, no one answered the phone, and the voice mailbox was full, so case management was unable to make contact with the patient after discharge. No alternative phone numbers were listed. Patient was given local wound care, and a dressing change. She was also given pain medication. Patient was given the number for [facility] so they may call to inquire about home health services, and a note was placed in her chart for case management consult, and the patient's up-to-date cell phone #[phone] was provided. The patient was also encouraged to follow-up with wound care clinic as well as infectious disease doctor. Today, patient presents to the hospital with emergency medical services with a complaint of burning pain around her wound ulcer. This is a chronic pain but got worse over the past day. No fevers, nausea, vomiting, no diarrhea, she reports that tramadol is not really working for her pain. -: Sudden, week(s) Location: buttocks Quality: burning Consistency: constant Improves with: medication, rest Worsens with: movement - Related Data Home Medications Medication Instructions Recorded Confirmed Last Taken Metformin HCl [Fortamet ER] 1,000 mg PO BID 02/10/16 07/15/19 1 Day Ago ~02/09/16 1000 Citalopram [celeXA] 10 mg PO QDAY 05/07/19 07/15/19 Unknown Gabapentin 300 mg PO BID 05/07/19 07/15/19 Unknown LORazepam [Lorazepam] 1 mg PO DAILY 05/07/19 07/15/19 Unknown Oxybutynin [Ditropan] 5 mg PO HS 05/07/19 07/15/19 Unknown levETIRAcetam [Keppra TAB] 1,000 mg PO BID 05/07/19 07/15/19 Unknown Ondansetron (Nf) [Zofran TAB] 8 mg PO Q6H PRN 07/15/19 07/15/19 Unknown Sertraline [Zoloft] 35 mg PO DAILY 07/15/19 07/15/19 Unknown fentaNYL [Duragesic 50mcg] 50 mcg TD Q3D 07/15/19 07/15/19 Unknown Previous Rx's Medication Instructions Recorded Last Taken Type Clopidogrel [Plavix] 75 mg PO QDAY #30 tablet 02/11/16 Unknown Rx Acyclovir [Zovirax Tab] 400 mg PO Q8H #21 tab 03/17/19 Unknown Rx Pregabalin [Lyrica] 300 mg PO BID #10 cap 05/14/19 Unknown Rx Doxycycline Monohydrate 100 mg PO BID #20 capsule 07/20/19 Unknown Rx [Doxycycline Monohydrate CAP] cephALEXin [Keflex] 500 mg PO Q8HR #30 cap 07/20/19 Unknown Rx HYDROcodone/APAP 5-325 [Gary 1 each PO Q6HR PRN #30 tablet 08/05/19 Unknown Rx 5/325] Magnesium Oxide [Mag-Ox] 400 mg PO QDAY #30 tablet 08/16/19 Unknown Rx Allergies Allergy/AdvReac Type Severity Reaction Status Date / Time Penicillins Allergy Rash Verified 05/07/19 12:13 Sulfa (Sulfonamide Allergy Rash Verified 05/07/19 12:13 Antibiotics) ED Review of Systems ROS: Stated complaint: SKIN PROBLEM Other details as noted in HPI Constitutional: denies: fever Eyes: denies: eye discharge ENT: denies: congestion Respiratory: denies: wheezing Cardiovascular: denies: syncope Gastrointestinal: denies: vomiting Musculoskeletal: myalgia Skin: lesions Neurological: headache Psychiatric: anxiety ED Past Medical Hx - Past Medical History Hx Hypertension: Yes Hx CVA: Yes (right side deficit,URINARY INCONTINENCE) Hx Heart Attack/AMI: No Hx Congestive Heart Failure: No Hx Diabetes: Yes Hx Deep Vein Thrombosis: No Hx Pulmonary Embolism: No Hx GERD: No Hx Liver Disease: No Hx Renal Disease: No Hx Sickle Cell Disease: No Hx Arthritis: Yes Hx Headaches / Migraines: No Hx Seizures: Yes Hx Kidney Stones: No Hx Psychiatric Treatment: Yes (depression) Hx Asthma: No Hx COPD: No Hx Tuberculosis: No Hx Dementia: Yes Hx HIV: No Additional medical history: high cholesterol - Surgical History Hx Pacemaker: No Hx Internal Defibrillator: No Additional Surgical History: back surgery - Social History Smoking Status: Former Smoker Substance Use Type: None - Medications Home Medications: Home Medications Medication Instructions Recorded Confirmed Last Taken Type Metformin HCl [Fortamet ER] 1,000 mg PO BID 02/10/16 07/15/19 1 Day Ago History ~02/09/16 1000 Clopidogrel [Plavix] 75 mg PO QDAY #30 tablet 02/11/16 07/15/19 Unknown Rx Acyclovir [Zovirax Tab] 400 mg PO Q8H #21 tab 03/17/19 07/15/19 Unknown Rx Citalopram [celeXA] 10 mg PO QDAY 05/07/19 07/15/19 Unknown History Gabapentin 300 mg PO BID 05/07/19 07/15/19 Unknown History LORazepam [Lorazepam] 1 mg PO DAILY 05/07/19 07/15/19 Unknown History Oxybutynin [Ditropan] 5 mg PO HS 05/07/19 07/15/19 Unknown History levETIRAcetam [Keppra TAB] 1,000 mg PO BID 05/07/19 07/15/19 Unknown History Pregabalin [Lyrica] 300 mg PO BID #10 cap 05/14/19 07/15/19 Unknown Rx Ondansetron (Nf) [Zofran TAB] 8 mg PO Q6H PRN 07/15/19 07/15/19 Unknown History Sertraline [Zoloft] 35 mg PO DAILY 07/15/19 07/15/19 Unknown History fentaNYL [Duragesic 50mcg] 50 mcg TD Q3D 07/15/19 07/15/19 Unknown History Doxycycline Monohydrate 100 mg PO BID #20 capsule 07/20/19 Unknown Rx [Doxycycline Monohydrate CAP] cephALEXin [Keflex] 500 mg PO Q8HR #30 cap 07/20/19 Unknown Rx HYDROcodone/APAP 5-325 [Gary 1 each PO Q6HR PRN #30 tablet 08/05/19 Unknown Rx 5/325] Magnesium Oxide [Mag-Ox] 400 mg PO QDAY #30 tablet 08/16/19 Unknown Rx ED Physical Exam - General Limitations: Physical Limitation, Other (Chaperoned by nurse Therese Lopez) General appearance: alert, anxious - Head Head exam: Present: atraumatic, normocephalic - Eye Eye exam: Present: normal appearance, EOMI - ENT ENT exam: Present: normal exam, normal orophraynx, mucous membranes moist, normal external ear exam - Neck Neck exam: Present: normal inspection, full ROM. Absent: tenderness, meningismus - Respiratory Respiratory exam: Present: normal lung sounds bilaterally. Absent: respiratory distress - Cardiovascular Cardiovascular Exam: Present: normal rhythm, tachycardia, normal heart sounds. Absent: systolic murmur, diastolic murmur, rubs, gallop - GI/Abdominal GI/Abdominal exam: Present: soft, other (Herrera catheter in place draining clear yellow urine). Absent: distended, tenderness, guarding, rebound, rigid, pulsatile mass - Rectal Rectal exam: Present: other (There is a large sacral wound noted, with some serous discharge, no obvious pus or streaking or crepitus. The wound appears the same as it did 10 days ago) - Extremities Exam Extremities exam: Present: normal inspection, other (2+ pulses noted in the bilateral upper extremities. 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 Moving bilateral upper extremities without difficulty.) - Back Exam Back exam: Present: normal inspection - Neurological Exam Neurological exam: Present: alert, other (There is no facial droop. Speaking in full sentences. Moving bilateral upper extremities. Paraplegic in the bilateral lower extremity) - Psychiatric Psychiatric exam: Present: anxious - Skin Skin exam: Present: warm ED Course Vital Signs 08/15/19 08/16/19 22:40 00:28 Temperature 99.7 F H 99.2 F Pulse Rate 113 H 104 H Respiratory 22 20 Rate Blood Pressure 120/99 Blood Pressure 161/72 [Left] O2 Sat by Pulse 99 100 Oximetry - Reevaluation(s) Reevaluation #1: 08/15/19 23:13 Differential diagnosis, including but not limited to: Wound pain, narcotic dependence, Case management patient Assessment and plan: 69-year-old female with discomfort to wound, with no obvio us redness, pus or streaking, no crepitus and no tenderness, patient has chronic pain, I suspect that the patient has an exacerbation of her chronic pain. We will treat her acute breakthrough pain with hydromorphone. Her wound today appears to be similar to prior wound examination from 10 days ago. We will obtain screening laboratory studies to assess her potassium, magnesium, and creatinine kinase. I contacted our household manager, Ms. Arias, and discussed the patient's case with her, as it appears that case management has not really reached out to the patient since June 2019. The patient will need home health care services, wound VAC services, and follow-up with both infectious dis ease, and the wound care clinic. Ms. Arias our household manager indicates that she will collect the patient's information, and reach out to the director of case management. Reevaluation #2: 08/16/19 00:43 Patient reassessed. Tachycardia resolved. Resting more comfortably. Laboratory studies reviewed and appreciated. Magnesium will be repleted. Patient's information was also taken by our household manager, Ms. Arias, who will communicate the patient's needs to case management. ED Medical Decision Making - Lab Data Result diagrams: 08/15/19 23:09 08/15/19 23:09 Vital Signs 08/15/19 22:40 Temperature 99.7 F H Pulse Rate 113 H Respiratory 22 Rate Blood Pressure 120/99 O2 Sat by Pulse 99 Oximetry Critical care attestation.: If time is entered above; I have spent that time in minutes in the direct care of this critically ill patient, excluding procedure time. ED Disposition Clinical Impression: Sacral decubitus ulcer, Hypomagnesemia Disposition: DC-01 TO HOME OR SELFCARE Is pt being admited?: No Does the pt Need Aspirin: No Condition: Stable Additional Instructions: Continue current outpatient medications. Take the magnesium supplementation as directed. Follow-up with outpatient infectious disease as soon as possible. Follow-up with outpatient wound care as soon as possible. Follow-up with your primary care doctor within the next month. Please return to the emergency room right away with new, worsened or different symptoms, or symptoms not present on the initial emergency room evaluation. Patient may also contact the case management office at the following extension: [phone] strongly recommend that patient and/or family reach out to case management office first thing in the morning, To help arrange home health services, and transportation to infectious disease appointments, wound care appointments, and primary care doctor. Please return to the emergency room right away with new, worsened or different symptoms, or symptoms not present on the initial emergency room evaluation. Referrals: MARYSOL CADE MD [Staff Physician] - 3-5 Days [facility] [Outside] - 3-5 Days ANTHONY COLLADO MD [Staff Physician] - 3-5 Days
[2019-08-15 23:39] LABS: Hematocrit 32.8 % (30.3-42.9); Hemoglobin 10.5 gm/dl (10.1-14.3)
[2019-08-16] MEDS ORDERED: SODIUM CHLORIDE 0.9% 1000 ML 1,000 ML IV ONE (00:07)
[2019-08-16] MEDS ORDERED: HYDROmorphone 1 MG/1 ML INJ IV ONE ×2 (00:07→00:24)
[2019-08-16 00:08] LABS: BUN/Creatinine Ratio 30; Blood Urea Nitrogen 6 mg/dL (7-17); Calcium 9.8 mg/dL (8.4-10.2); Hemolysis Index 0
[2019-08-16] MEDS ORDERED: MAGNESIUM SULFATE 2 GM/50 ML BAG IV ONE (00:23)
[2019-08-16] MEDS ORDERED: MAGNESIUM OXIDE 400 MG TAB PO ONE (00:23)
[2019-08-16] MEDS ORDERED: MAGNESIUM SULFATE 1 GM in SODIUM CHLORIDE 0.9% 50 ML IV ONE (01:00)
[2019-08-16 05:22] VITALS: BP 137/81
== END 2019-08-16 05:00 | disposition home or self-care (01) ==
LOC: ED 22:18
DX: L89.159 Pressure ulcer of sacral region, unspecified stage (principal); E83.42 Hypomagnesemia; I10 Essential (primary) hypertension; E11.9 Type 2 diabetes mellitus without complications; M19.90 Unspecified osteoarthritis, unspecified site; F32.9 Major depressive disorder, single episode, unspecified; F03.90 Unspecified dementia, unspecified severity, without behavioral disturbance, psychotic disturbance, mood disturbance, and anxiety; E78.00 Pure hypercholesterolemia, unspecified; Z87.891 Personal history of nicotine dependence; Z86.73 Personal history of transient ischemic attack (TIA), and cerebral infarction without residual deficits; Z79.899 Other long term (current) drug therapy; Z88.0 Allergy status to penicillin; Z88.2 Allergy status to sulfonamides
CPT/HCPCS: 36415; 80048; 82550; 83735; 85014; 85018; 85049; 96365; 96372; 96375; 99284; J1170; J3475; J7030

== ENCOUNTER 2020-03-21 22:27 | Observation (INO) | payer MEDICARE ==
[2020-03-21] MEDS ORDERED: LACTATED RINGERS 1,000 ML IV ONE (23:29)
[2020-03-21] MEDS ORDERED: HYDROmorphone 1 MG/1 ML INJ IV ONE (23:29)
--- NOTE | 2020-03-21 23:31 | Emergency Department Report ---
ED General Adult HPI - General Chief complaint: Wound/Laceration Stated complaint: ULCER PAIN/LOWER RT LEG PAIN PUI?: No Time Seen by Provider: 03/21/20 23:13 Source: patient, EMS ( EMS documentation not available at time of chart dictation ), RN notes reviewed, old records reviewed Mode of arrival: Wheelchair Limitations: Physical Limitation - History of Present Illness Initial comments: The patient was evaluated in the emergency department for symptoms described in the history of present illness. He/she was evaluated in the context of the global COVID-19 pandemic, which necessitated consideration that the patient might be at risk for infection with the virus that causes COVID-19. Institutional protocols and algorithms that pertain to the evaluation of patients at risk for COVID-19 are in a state of rapid change based on information released by regulatory bodies including the CDC and federal and state organizations. These policies and algorithms were followed during the patient's care in the emergency department. Please note that these policies, procedures and recommendations changed on a rapid basis. The patient is a 69-year-old female. I have evaluated this patient in the past. Patient's past medical history is complex. She does not have a local primary care doctor. The patient is functionally par aplegic and bedridden. She has a history of stroke, with prior history of right-sided deficits, and chronic sacral decubitus ulcer. She also has a history of hypokalemia and hypomagnesemia. She was previously seeing Dr. Cristofer Welch, however, he no longer sees this patient as she is bedridden, she is in the process of looking for a new primary care doctor. She is receiving home services from [place] she has a chronic indwelling Herrera catheter. This was just changed on March 09. She does not have a local wound care doctor. In the past, she was seeing Dr. Jeremiah Garcia. She presents to the ER today with a complaint of right posterior calf pain, wound, tenderness, discomfort for the past 10 days. No fever, vomiting, chest pain, abdominal pain, shortness of breath. The pain is throbbing and aching, increases with palpation, range of motion, and it decreases with rest. Patient states she is trying to coordinate with her insurance company to find a primary care doctor, and the wound care doctor. Of note, it appears that in the past social work has reached out to family multiple times, and as per their documentation "family is not communicating for care of the patient. Several attempts have been made to assess the patient and begin services." This note is from July 2019 -: days(s) Location: right, lower extremity Severity scale (0 -10): 9 Quality: aching Consistency: constant Improves with: rest Worsens with: movement - Related Data Home Medications Medication Instructions Recorded Confirmed Last Taken Metformin HCl [Fortamet ER] 1,000 mg PO BID 02/10/16 03/22/20 1 Day Ago ~02/09/16 1000 Gabapentin 300 mg PO TID 05/07/19 03/22/20 Unknown LORazepam [Lorazepam] 0.5 mg PO DAILY 05/07/19 03/22/20 Unknown levETIRAcetam [Keppra TAB] 1,000 mg PO BID 05/07/19 03/22/20 Unknown Sertraline [Zoloft] 25 mg PO DAILY 07/15/19 03/22/20 Unknown Mirabegron [Myrbetriq] 25 mg PO DAILY 03/22/20 03/22/20 Unknown Tramadol HCl [traMADol ER 200 MG] 200 mg PO QDAY 03/22/20 03/22/20 Unknown Previous Rx's Medication Instructions Recorded Last Taken Type Clopidogrel [Plavix] 75 mg PO QDAY #30 tablet 02/11/16 Unknown Rx Allergies Allergy/AdvReac Type Severity Reaction Status Date / Time Penicillins Allergy Rash Verified 05/07/19 12:13 Sulfa (Sulfonamide Allergy Rash Verified 05/07/19 12:13 Antibiotics) ED Review of Systems ROS: Stated complaint: ULCER PAIN/LOWER RT LEG PAIN Other details as noted in HPI Constitutional: malaise. denies: fever Eyes: denies: vision change ENT: denies: throat pain Respiratory: denies: cough Cardiovascular: denies: chest pain Gastrointestinal: denies: abdominal pain Musculoskeletal: arthralgia, myalgia Skin: rash, lesions, change in color Neurological: as per HPI Psychiatric: as per HPI, anxiety Hematological/Lymphatic: as per HPI ED Past Medical Hx - Past Medical History Previous Medical History?: Yes Hx Hypertension: Yes Hx CVA: Yes (right side deficit,URINARY INCONTINENCE) Hx Heart Attack/AMI: No Hx Congestive Heart Failure: No Hx Diabetes: Yes Hx Deep Vein Thrombosis: No Hx Pulmonary Embolism: No Hx GERD: No Hx Liver Disease: No Hx Renal Disease: No Hx Sickle Cell Disease: No Hx Arthritis: Yes Hx Headaches / Migraines: No Hx Seizures: Yes Hx Kidney Stones: No Hx Psychiatric Treatment: Yes (depression) Hx Asthma: No Hx COPD: No Hx Tuberculosis: No Hx Dementia: Yes Hx HIV: No Additional medical history: high cholesterol - Surgical History Past Surgical History?: Yes Hx Pacemaker: No Hx Internal Defibrillator: No Additional Surgical History: back surgery. left knee. right shoulder - Social History Smoking Status: Never Smoker Substance Use Type: None - Medications Home Medications: Home Medications Medication Instructions Recorded Confirmed Last Taken Type Metformin HCl [Fortamet ER] 1,000 mg PO BID 02/10/16 03/22/20 1 Day Ago History ~02/09/16 1000 Clopidogrel [Plavix] 75 mg PO QDAY #30 tablet 02/11/16 03/22/20 Unknown Rx Gabapentin 300 mg PO TID 05/07/19 03/22/20 Unknown History LORazepam [Lorazepam] 0.5 mg PO DAILY 05/07/19 03/22/20 Unknown History levETIRAcetam [Keppra TAB] 1,000 mg PO BID 05/07/19 03/22/20 Unknown History Sertraline [Zoloft] 25 mg PO DAILY 07/15/19 03/22/20 Unknown History Mirabegron [Myrbetriq] 25 mg PO DAILY 03/22/20 03/22/20 Unknown History Tramadol HCl [traMADol ER 200 MG] 200 mg PO QDAY 03/22/20 03/22/20 Unknown History ED Physical Exam - General Limitations: Physical Limitation General appearance: alert, in no apparent distress - Head Head exam: Present: atraumatic, normocephalic - Eye Eye exam: Present: normal appearance, EOMI. Absent: nystagmus - ENT ENT exam: Present: normal exam, normal orophraynx, mucous membranes moist, normal external ear exam - Neck Neck exam: Present: normal inspection, full ROM. Absent: tenderness, meningismus - Respiratory Respiratory exam: Present: normal lung sounds bilaterally. Absent: respiratory distress, wheezes, rales, rhonchi, stridor, decreased breath sounds - Cardiovascular Cardiovascular Exam: Present: regular rate, normal rhythm, normal heart sounds. Absent: bradycardia, tachycardia, irregular rhythm, systolic murmur, diastolic murmur, rubs, gallop - GI/Abdominal GI/Abdominal exam: Present: soft. Absent: distended, tenderness, guarding, rebound, rigid, pulsatile mass - Rectal Rectal exam: Present: other (There is a chronic sacral ulcer noted, that appears to be healing well with good granulation tissue. Chaperoned by nurse Gabriela Fan) - Extremities Exam Extremities exam: Present: tenderness, other (2+ pulses noted in the bilateral radial distribution. 1+ pulses noted in the bilateral dorsalis pedis distribution.). Absent: normal inspection (On the right posterior calf, there is a oval shaped wound, that is approximately 6 cm x 2 cm x 1.5 cm, with foul- smelling discharge, and appears to be infected. There is surrounding warmth and tenderness. Muscular compartments are soft.) - Back Exam Back exam: Present: normal inspection. Absent: tenderness, CVA tenderness (L), paraspinal tenderness, vertebral tenderness - Neurological Exam Neurological exam: Present: alert, other (There is no facial droop. The tongue is midline. The extraocular movements are intact bilaterally. There is 5 out of 5 strength in the bilateral upper extremities. Patient paraplegic in the bilateral lower extremities. Painful sensation is intact in the right lower extremity) - Psychiatric Psychiatric exam: Present: anxious - Skin Skin exam: Present: warm (There is a Herrera catheter in place draining cloudy yellow urine), other (Wound noted to the sacrum, and right lower extremity) ED Course Vital Signs 03/21/20 03/21/20 03/21/20 23:06 23:19 23:30 Temperature 99.3 F Pulse Rate 81 72 Respiratory 16 16 16 Rate Blood Pressure 132/61 119/56 [Right] O2 Sat by Pulse 99 98 Oximetry 03/21/20 03/22/20 03/22/20 23:45 00:30 01:00 Temperature 99.5 F Pulse Rate 68 60 65 Respiratory 16 16 16 Rate Blood Pressure 126/56 133/49 121/52 [Right] O2 Sat by Pulse 98 97 98 Oximetry 03/22/20 03/22/20 03/22/20 01:45 02:15 02:30 Temperature Pulse Rate 67 68 71 Respiratory 18 16 16 Rate Blood Pressure 165/68 155/53 154/56 [Right] O2 Sat by Pulse 97 97 97 Oximetry 03/22/20 03:00 Temperature Pulse Rate 71 Respiratory 16 Rate Blood Pressure 130/58 [Right] O2 Sat by Pulse 97 Oximetry - Reevaluation(s) Reevaluation #1: 03/22/20 00:40 Differential diagnosis, including but not limited to: Infected wound, cellulitis, peripheral artery disease Assessment and plan: 69-year-old female, who is bedbound, who does not currently have a primary care doctor, does not currently have a wound care doctor, with lo w-grade temperature of 99.3 degrees, chronic sacral wound which appears improved when compared to prior examinations, what appears to be a right new posterior calf wound, which appears to be infected, and has a clinical surrounding cellulitis. Given patient's inability to care for self, documentation of family not being closely available to assist with outpatient care, inability to obtain outpatient follow-up in a timely fashion, inability to care for self, obvious infection, patient is not safe for discharge as she does not have secure outpatient follow-up. Therefore, we will admit the patient to the medical service with a general surgery consultation. I contacted our general surgeon on-call, Dr. Jeremiah Garcia, discussed the patient's history, physical, and plan of care. His group can follow in consultation. Laboratory studies are pending, x-ray of the lower extremity does not suggest gas, or foreign body, her examination is not consistent or suggestive of compartment syndrome, it is consistent and suggestive of cellulitis with infected wound. Reevaluation #2: 03/22/20 01:50 Dr Cheir Pool to admit ED Medical Decision Making - Lab Data Result diagrams: 03/22/20 00:47 03/22/20 00:47 Vital Signs 03/21/20 03/21/20 23:06 23:19 Temperature 99.3 F Pulse Rate 81 Respiratory 16 16 Rate Blood Pressure 132/61 [Right] O2 Sat by Pulse 99 Oximetry Lab Results 03/22/20 03/22/20 03/22/20 Range/Units 00:47 00:47 00:47 WBC 8.2 (4.5-11.0) K/mm3 RBC 3.81 (3.65-5.03) M/mm3 Hgb 9.7 L (10.1-14.3) gm/dl Hct 31.0 (30.3-42.9) % MCV 81 (79-97) fl MCH 26 L (28-32) pg MCHC 31 (30-34) % RDW 17.8 H (13.2-15.2) % Plt Count 458 H (140-440) K/mm3 Lymph % (Auto) 30.4 (13.4-35.0) % [place] % (Auto) 6.3 (0.0-7.3) % Eos % (Auto) 4.6 H (0.0-4.3) % Baso % (Auto) 1.1 (0.0-1.8) % Lymph # (Auto) 2.5 (1.2-5.4) K/mm3 [place] # (Auto) 0.5 (0.0-0.8) K/mm3 Eos # (Auto) 0.4 (0.0-0.4) K/mm3 Baso # (Auto) 0.1 (0.0-0.1) K/mm3 Seg Neutrophils % 57.6 (40.0-70.0) % Seg Neutrophils # 4.7 (1.8-7.7) K/mm3 PT 13.7 (12.2-14.9) Sec. INR 1.04 (0.87-1.13) Sodium 141 (137-145) mmol/L Potassium 3.8 (3.6-5.0) mmol/L Chloride 103.8 (98-107) mmol/L Carbon Dioxide 26 (22-30) mmol/L Anion Gap 15 mmol/L BUN 10 (7-17) mg/dL Creatinine 0.3 L (0.6-1.2) mg/dL Estimated GFR > 60 ml/min BUN/Creatinine Ratio 33 % Glucose 95 (65-100) mg/dL Calcium 8.9 (8.4-10.2) mg/dL Magnesium 1.40 L (1.7-2.3) mg/dL Total Creatine Kinase 21 L (30-135) units/L - EKG Data -: EKG Interpreted by Hi EKG shows normal: sinus rhythm - EKG Data 03/22/20 03:29 Sinus rhythm, 70 bpm, there is a normal axis, there is a first-degree AV block, there is minimal motion artifact, the EKG is abnormal, the EKG is not a STEMI. - Radiology Data Radiology results: report reviewed, image reviewed Critical care attestation.: If time is entered above; I have spent that time in minutes in the direct care of this critically ill patient, excluding procedure time. ED Disposition Clinical Impression: Infected wound, Paraplegia, Hypomagnesemia Sacral decubitus ulcer Qualifiers: Pressure injury stage: unspecified pressure injury stage Qualified Code(s): L89.159 - Pressure ulcer of sacral region, unspecified stage Cellulitis Qualifiers: Site of cellulitis: extremity Site of cellulitis of extremity: lower extremity Laterality: right Qualified Code(s): L03.115 - Cellulitis of right lower limb Disposition: OP ADMIT IP TO THIS HOSP Is pt being admited?: Yes Does the pt Need Aspirin: No Condition: Stable
--- NOTE | 2020-03-22 00:07 | XRay Report ---
RIGHT TIB-FIB 2 VIEW INDICATION / CLINICAL INFORMATION: rle pain, infected wound. COMPARISON: None available. FINDINGS: BONES/JOINT(S): No acute fracture or subluxation. No focal bone lysis to suggest osteomyelitis. Subje ctive bone demineralization. SOFT TISSUES: No radiopaque foreign bodies or soft tissue gas seen. ADDITIONAL FINDINGS: None. Signer Name: Andrade Bundy MD Signed: 03/22/2020 12:03 AM Workstation Name: [id number]
[2020-03-22] MEDS ORDERED: CLINDAMYCIN 600 MG/50 mL 600 MG/50 ML BAG IV ONE ×2 (00:43→02:57)
[2020-03-22 01:07] LABS: Hemoglobin 9.7 gm/dl (10.1-14.3); Mean Corpuscular HGB Conc 31 % (30-34); Mean Corpuscular Volume 81 fl (79-97); Platelet Count 458 K/mm3 (140-440); Red Blood Count 3.81 M/mm3 (3.65-5.03); Red Cell Distribution Width 17.8 % (13.2-15.2)
[2020-03-22 01:18] LABS: Basophils # (Auto) 0.1 K/mm3 (0.0-0.1); Basophils % (Auto) 1.1 % (0.0-1.8); Eosinophils # (Auto) 0.4 K/mm3 (0.0-0.4); Eosinophils % (Auto) 4.6 % (0.0-4.3); Lymphocytes # (Auto) 2.5 K/mm3 (1.2-5.4); Lymphocytes % (Auto) 30.4 % (13.4-35.0); Monocytes # (Auto) 0.5 K/mm3 (0.0-0.8); Monocytes % (Auto) 6.3 % (0.0-7.3)
[2020-03-22 01:23] LABS: INR 1.04 (0.87-1.13)
[2020-03-22 01:28] LABS: Blood Urea Nitrogen 10 mg/dL (7-17); Calcium 8.9 mg/dL (8.4-10.2); Hemolysis Index 3
[2020-03-22 01:34] LABS: BUN/Creatinine Ratio 33
[2020-03-22] MEDS ORDERED: MAGNESIUM SULFATE 2 GM/50 ML BAG IV ONE ×2 (01:48→02:58)
[2020-03-22] MEDS ORDERED: ACETAMINOPHEN 325 MG TAB PO PRN (02:30)
[2020-03-22] MEDS ORDERED: ONDANSETRON 4 MG/2 ML INJ IV PRN (02:30)
[2020-03-22] MEDS ORDERED: MAGNESIUM HYDROXIDE (MOM) ORAL LIQD UDC PO PRN (02:30)
[2020-03-22] MEDS ORDERED: DEXTROSE 50% IN WATER (25GM) 50 ML SYRINGE IV PRN (02:30)
--- NOTE | 2020-03-22 02:39 | History and Physical Report ---
History of Present Illness Date of examination: 03/22/20 Date of admission: 03/22/20 01:51 Chief complaint: Right Calf Wound History of present illness: 69-year-old female with known history of CVA, seizure disorder, diabetes mellitus, hypertension, history of paraplegia and history of sacral wound presented to the emergency room today with right posterior calf pain for the past 7 to 10 days. He denies any fever, no nausea or vomiting, denies any chest pain or shortness of breath. Lower extremity pain is said to be throbbing. Evaluation in the emergency room today reveals an ulcer in the right calf with surrounding cellulitis. Hypomagnesemia. Patient commenced on empiric IV antibiotics and magnesium was also repleted. Past History Past Medical History: diabetes, hypertension, hyperlipidemia, seizures, stroke, other (Depression,) Past Surgical History: Other (Back Surgery,Right Shoulder surgery,Knee surgery) Social history: no significant social history Family history: no significant family history Medications and Allergies Allergies Allergy/AdvReac Type Severity Reaction Status Date / Time Penicillins Allergy Rash Verified 05/07/19 12:13 Sulfa (Sulfonamide Allergy Rash Verified 05/07/19 12:13 Antibiotics) Home Medications Medication Instructions Recorded Confirmed Last Taken Type Metformin HCl [Fortamet ER] 1,000 mg PO BID 02/10/16 03/22/20 1 Day Ago History ~02/09/16 1000 Clopidogrel [Plavix] 75 mg PO QDAY #30 tablet 02/11/16 03/22/20 Unknown Rx Gabapentin 300 mg PO TID 05/07/19 03/22/20 Unknown History LORazepam [Lorazepam] 0.5 mg PO DAILY 05/07/19 03/22/20 Unknown History levETIRAcetam [Keppra TAB] 1,000 mg PO BID 05/07/19 03/22/20 Unknown History Sertraline [Zoloft] 25 mg PO DAILY 07/15/19 03/22/20 Unknown History Mirabegron [Myrbetriq] 25 mg PO DAILY 03/22/20 03/22/20 Unknown History Tramadol HCl [traMADol ER 200 MG] 200 mg PO QDAY 03/22/20 03/22/20 Unknown History Active Meds: Active Medications Acetaminophen (Tylenol) 650 mg PO Q4H PRN PRN Reason: Pain MILD(1-3)/Fever >100.5/NARAYAN Dextrose (D50w (25gm) Syringe) 50 ml IV Q30MIN PRN; Protocol PRN Reason: Hypoglycemia Sodium Chloride (Nacl 0.9% 1000 Ml) 1,000 mls @ 125 mls/hr IV DIRECT JORDON Insulin Human Lispro (Humalog) 0 unit SUB-Q ACHS JORDON; Protocol Magnesium Hydroxide (Milk Of Magnesia) 30 ml PO Q4H PRN PRN Reason: Constipation Ondansetron HCl (Zofran) 4 mg IV Q8H PRN PRN Reason: Nausea And Vomiting Sodium Chloride (Sodium Chloride Flush Syringe 10 Ml) 10 ml IV BID JORDON Sodium Chloride (Sodium Chloride Flush Syringe 10 Ml) 10 ml IV PRN PRN PRN Reason: LINE FLUSH Review of Systems Constitutional: no fever, no chills Ears, nose, mouth and throat: no nasal congestion, no sore throat Cardiovascular: no chest pain, no palpitations Respiratory: no cough, no shortness of breath Gastrointestinal: no abdominal pain, no nausea, no vomiting, no diarrhea Genitourinary Female: no flank pain, no dysuria, no hematuria Musculoskeletal: neck pain, no low back pain Integumentary: no rash, no pruritis Neurological: no headaches, no confusion Psychiatric: no anxiety, no depression Exam - Constitutional Vitals: Temp Pulse Resp BP Pulse Ox 99.3 F 81 16 132/61 99 03/21/20 23:06 03/21/20 23:06 03/21/20 23:19 03/21/20 23:06 03/21/20 23:06 General appearance: Present: no acute distress, well-nourished - EENT Eyes: Present: PERRL, EOM intact ENT: hearing intact, clear oral mucosa, dentition normal - Neck Neck: Present: supple, normal ROM - Respiratory Respiratory effort: normal Respiratory: bilateral: CTA - Cardiovascular Rhythm: regular Heart Sounds: Present: S1 & S2. Absent: gallop, systolic murmur, diastolic murmur, rub - Extremities Extremities: no ischemia, pulses intact, pulses symmetrical, No edema, Full ROM Extremity abnormal: ulceration ( right calf ulcer with surrounding cellulitis) Peripheral Pulses: within normal limits - Abdominal General gastrointestinal: Present: soft, non-tender, non-distended, normal bowel sounds. Absent: mass - Integumentary Integumentary: Present: clear, warm, dry - Musculoskeletal Musculoskeletal: strength equal bilaterally - Psychiatric Psychiatric: appropriate mood/affect, intact judgment & insight, memory intact, cooperative - Neurologic Neurologic: CNII-XII intact, other (Paraplegia) Results - Labs CBC & Chem 7: 03/22/20 00:47 03/22/20 00:47 Labs: Abnormal lab results 03/22/20 03/22/20 Range/Units 00:47 00:47 Hgb 9.7 L (10.1-14.3) gm/dl MCH 26 L (28-32) pg RDW 17.8 H (13.2-15.2) % Plt Count 458 H (140-440) K/mm3 Eos % (Auto) 4.6 H (0.0-4.3) % Creatinine 0.3 L (0.6-1.2) mg/dL Magnesium 1.40 L (1.7-2.3) mg/dL Total Creatine Kinase 21 L (30-135) units/L Assessment and Plan - Patient Problems (1) Infected wound Current Visit: Yes Status: Acute Plan to address problem: Consult has been placed to general surgery and wound care team for evaluation. We will continue on empiric IV antibiotics. (2) Cellulitis Current Visit: Yes Status: Acute Qualifiers: Site of cellulitis: extremity Site of cellulitis of extremity: lower extremity Laterality: right Qualified Code(s): L03.115 - Cellulitis of right lower limb Plan to address problem: We will continue on antibiotics as stated above. (3) Hypomagnesemia Current Visit: Yes Status: Acute Plan to address problem: Magnesium repleted. Will monitor chemistry. (4) Paraplegia Current Visit: Yes Status: Acute (5) HTN (hypertension) Current Visit: No Status: Chronic Qualifiers: Hypertension type: essential hypertension Qualified Code(s): I10 - Essential (primary) hypertension (6) Diabetes Current Visit: No Status: Chronic Qualifiers: Diabetes mellitus type: type 2 Plan to address problem: We will monitor Accu-Cheks. (7) DVT prophylaxis Current Visit: No Status: Acute Plan to address problem: Patient placed on subcutaneous heparin (8) Full code status Current Visit: No Status: Acute
[2020-03-22] MEDS ORDERED: MORPHINE 2 MG/1 ML INJ IM ONE (05:08)
[2020-03-22] MEDS: SODIUM CHLORIDE 0.9% 1000 ML 1,000 ML IV SCH ×3 (05:22→21:31)
[2020-03-22] MEDS: INSULIN LISPRO 100 UNIT/ML VIAL 3 mL SUB-Q SCH ×4 (08:12→21:42)
[2020-03-22] MEDS: MORPHINE 2 MG/1 ML INJ IV PRN ×3 (12:04→22:56)
[2020-03-22] MEDS: CLINDAMYCIN 600 MG/50 mL 600 MG/50 ML BAG IV SCH ×2 (12:05→21:31)
--- NOTE | 2020-03-22 13:42 | Consultation ---
History of Present Illness Consult date: 03/22/20 Chief complaint: Right calf wound - History of present illness History of present illness: 69 yo female admitted with an infected posterior right calf wound. Past History Past Medical History: diabetes, hypertension, hyperlipidemia, seizures, stroke, other (Depression,) Past Surgical History: Other (Back Surgery,Right Shoulder surgery,Knee surgery) Social history: no significant social history Family history: no significant family history Medications and Allergies Allergies Allergy/AdvReac Type Severity Reaction Status Date / Time Penicillins Allergy Rash Verified 05/07/19 12:13 Sulfa (Sulfonamide Allergy Rash Verified 05/07/19 12:13 Antibiotics) Home Medications Medication Instructions Recorded Confirmed Last Taken Type Metformin HCl [Fortamet ER] 1,000 mg PO BID 02/10/16 03/22/20 1 Day Ago History ~02/09/16 1000 Clopidogrel [Plavix] 75 mg PO QDAY #30 tablet 02/11/16 03/22/20 Unknown Rx Gabapentin 300 mg PO TID 05/07/19 03/22/20 Unknown History LORazepam [Lorazepam] 0.5 mg PO DAILY 05/07/19 03/22/20 Unknown History levETIRAcetam [Keppra TAB] 1,000 mg PO BID 05/07/19 03/22/20 Unknown History Sertraline [Zoloft] 25 mg PO DAILY 07/15/19 03/22/20 Unknown History Mirabegron [Myrbetriq] 25 mg PO DAILY 03/22/20 03/22/20 Unknown History Tramadol HCl [traMADol ER 200 MG] 200 mg PO QDAY 03/22/20 03/22/20 Unknown History Active Meds: Active Medications Acetaminophen (Tylenol) 650 mg PO Q4H PRN PRN Reason: Pain MILD(1-3)/Fever >100.5/NARAYAN Last Admin: 03/22/20 08:10 Dose: 650 mg Documented by: Dextrose (D50w (25gm) Syringe) 50 ml IV Q30MIN PRN; Protocol PRN Reason: Hypoglycemia Heparin Sodium (Porcine) (Heparin) 5,000 unit SUB-Q Q8HR JORDON Sodium Chloride (Nacl 0.9% 1000 Ml) 1,000 mls @ 125 mls/hr IV DIRECT JORDON Last Admin: 03/22/20 12:21 Dose: 125 mls/hr Documented by: Clindamycin HCl (Cleocin 600 Mg/50 Ml) 600 mg in 50 mls @ 100 mls/hr IV Q8HR [facility]; Protocol Last Admin: 03/22/20 12:05 Dose: 100 mls/hr Documented by: Insulin Human Lispro (Humalog) 0 unit SUB-Q ACHS [facility]; Protocol Last Admin: 03/22/20 12:21 Dose: Not Given Documented by: Magnesium Hydroxide (Milk Of Magnesia) 30 ml PO Q4H PRN PRN Reason: Constipation Morphine Sulfate (Morphine) 2 mg IV Q4H PRN PRN Reason: Pain, Moderate (4-6) Last Admin: 03/22/20 12:04 Dose: 2 mg Documented by: Ondansetron HCl (Zofran) 4 mg IV Q8H PRN PRN Reason: Nausea And Vomiting Sodium Chloride (Sodium Chloride Flush Syringe 10 Ml) 10 ml IV BID [facility] Last Admin: 03/22/20 12:05 Dose: 10 ml Documented by: Sodium Chloride (Sodium Chloride Flush Syringe 10 Ml) 10 ml IV PRN PRN PRN Reason: LINE FLUSH Review of Systems All systems: negative (none) Exam Vital Signs Temp Pulse Resp BP Pulse Ox 99.3 F 81 16 132/61 99 03/21/20 23:06 03/21/20 23:06 03/21/20 23:06 03/21/20 23:06 03/21/20 23:06 - General physical appearance Positive: well developed, well nourished, no distress - Eyes Positive: PERRL, normal occular movement - ENT Positive: normal pinna, normal nares, normal mucosa, no hearing loss, no congestion - Neck Positive: no masses, no bruits, trachea midline, no venous distension - Respiratory Positive: normal expansion, normal respiratory effort, clear to auscultation - Cardiovascular Rhythm: regular Heart Sounds: Present: S1 & S2. Absent: rub, click - Extremities Extremities: no ischemia, pulses symmetrical, No edema - Breasts Breasts: deferred - Abdomen Abdomen: Present: soft, bowel sounds normal. Absent: tender, distended Hernia: none - Genitourinary Female Genitourinary: deferred - Integumentary other (There is a 6 X 3 X 1 cm ulcer over the right posterolateral calf with some exposed, necrotic muscle. A large portion of the wound is covered with an overlying yellowish exudate.) - Neurologic Neurologic: alert and oriented to time, place and person, motor strength and sensation are grossly intact - Musculoskeletal normal gait, normal posture - Psychiatric Psychiatric: appropriate mood/affect, intact judgment & insight Results - Labs 03/22/20 00:47 03/22/20 00:47 Abnormal lab results 03/22/20 03/22/20 Range/Units 00:47 00:47 Hgb 9.7 L (10.1-14.3) gm/dl MCH 26 L (28-32) pg RDW 17.8 H (13.2-15.2) % Plt Count 458 H (140-440) K/mm3 Eos % (Auto) 4.6 H (0.0-4.3) % Creatinine 0.3 L (0.6-1.2) mg/dL Magnesium 1.40 L (1.7-2.3) mg/dL Total Creatine Kinase 21 L (30-135) units/L Diabetes panel 03/22/20 Range/Units 00:47 Sodium 141 (137-145) mmol/L Potassium 3.8 (3.6-5.0) mmol/L Chloride 103.8 (98-107) mmol/L Carbon Dioxide 26 (22-30) mmol/L BUN 10 (7-17) mg/dL Creatinine 0.3 L (0.6-1.2) mg/dL Glucose 95 (65-100) mg/dL Calcium 8.9 (8.4-10.2) mg/dL Calcium panel 03/22/20 Range/Units 00:47 Calcium 8.9 (8.4-10.2) mg/dL Pituitary panel 03/22/20 Range/Units 00:47 Sodium 141 (137-145) mmol/L Potassium 3.8 (3.6-5.0) mmol/L Chloride 103.8 (98-107) mmol/L Carbon Dioxide 26 (22-30) mmol/L BUN 10 (7-17) mg/dL Creatinine 0.3 L (0.6-1.2) mg/dL Glucose 95 (65-100) mg/dL Calcium 8.9 (8.4-10.2) mg/dL Adrenal panel 03/22/20 Range/Units 00:47 Sodium 141 (137-145) mmol/L Potassium 3.8 (3.6-5.0) mmol/L Chloride 103.8 (98-107) mmol/L Carbon Dioxide 26 (22-30) mmol/L BUN 10 (7-17) mg/dL Creatinine 0.3 L (0.6-1.2) mg/dL Glucose 95 (65-100) mg/dL Calcium 8.9 (8.4-10.2) mg/dL Assessment and Plan - Patient Problems (1) 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
[2020-03-22] MEDS: HEPARIN 5,000 UNIT/1 ML VIAL SUB-Q SCH ×2 (14:50→21:31)
[2020-03-22] MEDS ORDERED: LIDOCAINE (4%) 40 MG/ML TOPICAL SOLN 50 ML BOTTLE TP ONE (15:00)
[2020-03-22] MEDS ORDERED: LIDOCAINE (4%) 40 MG/ML TOPICAL SOLN 50 ML BOTTLE TP NR (15:00)
--- NOTE | 2020-03-22 15:00 | Event Note ---
Date: 03/22/20 Patient seen and examined 69 yo female admitted with an infected posterior right calf wound. General surgery consulted and plan to debride the ulcer tomorrow at bedside. Continue IV antibiotics, will follow wound culture.
[2020-03-22] MEDS: GABAPENTIN 300 MG CAP PO SCH (21:44)
[2020-03-23] MEDS: MORPHINE 2 MG/1 ML INJ IV PRN ×3 (03:54→15:09)
[2020-03-23] MEDS: SODIUM CHLORIDE 0.9% 1000 ML 1,000 ML IV SCH (05:02)
[2020-03-23] MEDS: CLINDAMYCIN 600 MG/50 mL 600 MG/50 ML BAG IV SCH ×2 (05:02→15:09)
[2020-03-23] MEDS: HEPARIN 5,000 UNIT/1 ML VIAL SUB-Q SCH ×2 (05:04→15:09)
[2020-03-23] MEDS: INSULIN LISPRO 100 UNIT/ML VIAL 3 mL SUB-Q SCH ×2 (08:30→13:04)
[2020-03-23] MEDS: GABAPENTIN 300 MG CAP PO SCH ×2 (08:41→15:09)
--- NOTE | 2020-03-23 12:51 | Discharge Summary ---
Providers - Providers Date of Admission: 03/22/20 01:51 Date of discharge: 03/23/20 Attending physician: MARK PAUL 03/21/20 23:29 Consult to Physician [CONS] Urgent Comment: Consulting Provider: SAMMY BROOKE Physician Instructions: Reason For Exam: infected wound 03/22/20 02:30 Consult to Dietitian/Nutrition [CONS] Routine Physician Instructions: Reason For Exam: Reason for Consult: Diet education 03/22/20 04:56 Consult to Wound/ET Nurse [CONS] Routine Reason For Exam: wound eval 03/23/20 09:14 Consult to Wound/ET Nurse [CONS] Stat Reason For Exam: wound eval. RT THIGH Primary care physician: BASIA MELO Hospitalization Condition: Stable Hospital course: 69-year-old female with known history of CVA, seizure disorder, diabetes mellitus, hypertension, history of paraplegia, bedbound and history of sacral wound presented to the emergency room today with right posterior calf pain for the past 7 to 10 days. Evaluation in the emergency room today reveals an ulcer in the right calf with surrounding cellulitis, Hypomagnesemia. Patient commenced on empiric IV antibiotics and magnesium was also repleted. Wound care and general surgery was consulted. Patient had bedside debridement of the lower extremity pressure sore ulcer. Patient's blood culture was negative. Following the debridement p essence was discharged home in stable condition with home health wound care and outpatient wound clinic follow-up. Discharge diagnosis: --Infected right lower extremity pressure ulcer Consult has been placed to general surgery and wound care team for evaluation. s/p empiric IV antibiotics and bedside debridement. -- Cellulitis of lower extremity,right treated with abx -- Hypomagnesemia, Magnesium repleted. -- Paraplegia, supportive care --Seizure disorder, continue Keppra --History of CVA, continue aspirin and statin --HTN (hypertension) -- Diabetes type 2 --DVT prophylaxis Patient placed on subcutaneous heparin -- Full code status Disposition: [id number] HOME UNDER HOME HLTH Time spent for discharge: 34 minutes Core Measure Documentation - Palliative Care Palliative Care/ Comfort Measures: Not Applicable - Core Measures Any of the following diagnoses?: none Exam - Physical Exam Narrative exam: General appearance: Present: no acute distress, well-nourished - EENT Eyes: Present: PERRL, EOM intact ENT: hearing intact, clear oral mucosa, dentition normal - Neck Neck: Present: supple, normal ROM - Respiratory Respiratory effort: normal Respiratory: bilateral: CTA - Cardiovascular Rhythm: regular Heart Sounds: Present: S1 & S2. Absent: gallop, systolic murmur, diastolic murmur, rub - Extremities Extremities: no ischemia, pulses intact, pulses symmetrical, No edema, Full ROM Extremity abnormal: ulceration ( right calf ulcer with surrounding cellulitis) Peripheral Pulses: within normal limits - Abdominal General gastrointestinal: Present: soft, non-tender, non-distended, normal bowel sounds. Absent: mass - Integumentary Integumentary: Present: clear, warm, dry - Musculoskeletal Musculoskeletal: strength equal bilaterally - Psychiatric Psychiatric: appropriate mood/affect, intact judgment & insight, memory intact, cooperative - Neurologic Neurologic: CNII-XII intact, other (Paraplegia) - Constitutional Vitals: Temp Pulse Resp BP Pulse Ox 98.2 F 69 16 144/58 99 03/23/20 04:49 03/23/20 04:49 03/23/20 04:49 03/23/20 04:49 03/23/20 04:49 Plan Activity: other (bedrest) Diet: diabetic Wound: per wound nurse instructions Special Instructions: record blood sugar diary Follow up with: BASIA MELO MD [Primary Care Provider] - 3-5 Days Prescriptions: Clindamycin [Clindamycin CAP] 600 mg PO BID #14 capsule Gabapentin 300 mg PO TID #30 cap oxyCODONE /ACETAMINOPHEN [Percocet 5/325] 1 tab PO Q6HR PRN #14 tablet PRN Reason: Pain
--- NOTE | 2020-03-23 14:11 | Procedure Note ---
Date of procedure: 03/23/20 Pre-op diagnosis: Right calf wound with exposed necrotic muscle/fascia Post-op diagnosis: same Procedure: Debridement of right calf wound Description of procedure: Pt was positioned with her right posterolateral calf upwards. The ulcer area was prepped and draped. A surgical, excisional debridement of necrotic skin, SQ tissue, muscle and fascia was performed with a curette. Bleeding was minimal and was controlled with pressure. Wound was packed by the Wound Care nurse. Pt tolerated the procedure well. Post-debridement measurements: 6 X 3 X 1.4 cm Anesthesia: other (4% Lidocaine applied topically) Surgeon: SAMMY BROOKE Estimated blood loss: minimal Pathology: none Specimen disposition: discarded Condition: stable Disposition: no change
[2020-03-23 14:21] LABS: Hematocrit 27.2 % (30.3-42.9); Hemoglobin 8.8 gm/dl (10.1-14.3); Mean Corpuscular HGB Conc 32 % (30-34); Mean Corpuscular Volume 80 fl (79-97); Platelet Count 379 K/mm3 (140-440); Red Blood Count 3.39 M/mm3 (3.65-5.03); Red Cell Distribution Width 17.6 % (13.2-15.2)
[2020-03-23 14:30] LABS: INR 1.05 (0.87-1.13)
[2020-03-23 14:35] LABS: Blood Urea Nitrogen 7 mg/dL (7-17); Calcium 8.4 mg/dL (8.4-10.2); Hemolysis Index 94
[2020-03-23 14:43] LABS: BUN/Creatinine Ratio 35
[2020-03-23 15:49] LABS: Total Cells Counted 100
[2020-03-23 15:50] LABS: Band Neutrophils # (Manual) 0.2 K/mm3; Basophils % (Manual) 0 % (0.0-1.8); Hypochromasia 1+
[2020-03-23 15:51] LABS: Ovalocytes Few; Schistocytes Rare
[2020-03-23 15:52] LABS: Platelet Estimate Consistent w Auto
[2020-03-23 19:15] VITALS: BP 146/46
== END 2020-03-23 20:00 | disposition home health service (06) ==
LOC: ED 22:27 → 3A 03-22 01:51
PROVIDERS: ADMIT Internal Medicine Geriatric Medicine; ATTEND Internal Medicine
DX: L97.213 Non-pressure chronic ulcer of right calf with necrosis of muscle (principal); L03.115 Cellulitis of right lower limb; L89.159 Pressure ulcer of sacral region, unspecified stage; E83.42 Hypomagnesemia; G82.20 Paraplegia, unspecified; I10 Essential (primary) hypertension; E11.9 Type 2 diabetes mellitus without complications; E78.5 Hyperlipidemia, unspecified; F32.9 Major depressive disorder, single episode, unspecified; M19.90 Unspecified osteoarthritis, unspecified site; F03.90 Unspecified dementia, unspecified severity, without behavioral disturbance, psychotic disturbance, mood disturbance, and anxiety; E78.00 Pure hypercholesterolemia, unspecified; G40.909 Epilepsy, unspecified, not intractable, without status epilepticus; Z86.73 Personal history of transient ischemic attack (TIA), and cerebral infarction without residual deficits; Z79.84 Long term (current) use of oral hypoglycemic drugs; Z79.899 Other long term (current) drug therapy; Z88.0 Allergy status to penicillin; Z88.2 Allergy status to sulfonamides
CPT/HCPCS: 36415; 73590; 80048; 82140; 82550; 82962; 83735; 85025; 85610; 87040; 87076; 87116; 87186; 93005; 96361; 96365; 96366; 96367; 96372; 96375; 96376; 99285; G0378; J1170; J1644; J2270; J3475; J7030; J7120; 85007; 96368

== ENCOUNTER 2021-10-03 11:35 | Day surgery (SDC) | payer MEDICARE ==
[2021-10-03] MEDS ORDERED: LACTATED RINGERS 1,000 ML ONE (12:44)
[2021-10-03] MEDS ORDERED: LIDOCAINE 2% UROJECT 10 ML JELLY ONE (12:49)
[2021-10-03] MEDS ORDERED: HYDROmorphone 1 MG/1 ML INJ IV PRN (13:14)
[2021-10-03] MEDS ORDERED: ONDANSETRON 4 MG/2 ML INJ IV PRN (13:14)
--- NOTE | 2021-10-03 13:16 | Anesthesia Day of Surgery ---
Anesthesia Day of Surgery - Day of Surgery Patient Examined: Yes Patient H&P Reviewed: Yes Patient is NPO: Yes
--- NOTE | 2021-10-03 13:18 | Anesthesia Consultation ---
Anesthesia Consult and Med Hx - Airway Anesthetic Teeth Evaluation: Chipped ROM Head & Neck: Adequate Mental/Hyoid Distance: Adequate Mallampati Class: Class II Intubation Access Assessment: Good - Pre-Operative Health Status ASA Pre-Surgery Classification: ASA3 Proposed Anesthetic Plan: General - Pulmonary Hx Smoking: Yes (QUIT 2011) Hx Asthma: No COPD: Yes Hx Pneumonia: Yes (IN PAST) Hx Sleep Apnea: No (SNORES- HIGH RISK ON JUHI PRESCREEN) - Cardiovascular System Hx Hypertension: Yes Hx Coronary Artery Disease: No (Pt reports negative ETT approx three years ago) Hx Heart Attack/AMI: No Hx Angina: No Hx Percutaneous Transluminal Coronary Angioplasty (PTCA): No Hx Pacemaker: No Hx Internal Defibrillator: No Hx Valvular Heart Disease: No Hx Heart Murmur: Yes Hx Peripheral Vascular Disease: No - Central Nervous System Hx Seizures: Yes CVA: Yes (15 YRS [id number] RIGHT SIDE) Hx Back Pain: Yes (Bedridden) Hx Psychiatric Problems: Yes (Anxiety/Depression) - Gastrointestinal Hx Gastroesophageal Reflux Disease: No - Endocrine Hx Renal Disease: Yes (Stones) Hx Liver Disease: No Hx Non-Insulin Dependent Diabetes: Yes (FBS 96) Hx Hypothyroidism: No Hx Hyperthyroidism: No - Hematic Hx Anemia: Yes Hx Sickle Cell Disease: No - Other Systems Hx Alcohol Use: No Hx Substance Use: No Hx Cancer: No Hx Obesity: Yes
[2021-10-03 13:22] LABS: Hematocrit 32.8 % (30.3-42.9); Hemoglobin 10.4 gm/dl (10.1-14.3); Mean Corpuscular HGB Conc 32 % (30-34); Mean Corpuscular Volume 86 fl (79-97); Platelet Count 292 K/mm3 (140-440)
[2021-10-03 13:24] LABS: Red Cell Distribution Width 21.8 % (13.2-15.2)
[2021-10-03 13:25] LABS: Blood Urea Nitrogen 7 mg/dL (7-17); Calcium 8.6 mg/dL (8.4-10.2); Hemolysis Index 14
[2021-10-03 13:44] LABS: BUN/Creatinine Ratio 18
[2021-10-03] MEDS ORDERED: MIDAZOLAM 2 MG/2 ML INJ IV NR (14:00)
[2021-10-03] MEDS ORDERED: LACTATED RINGERS 1,000 ML IV SCH (14:00)
[2021-10-03] MEDS ORDERED: fentaNYL 100 MCG/2 ML INJ ONE (14:13)
[2021-10-03] MEDS ORDERED: propofoL 200 MG/20 ML VIAL IV ONE (14:13)
[2021-10-03] MEDS ORDERED: LIDOCAINE MPF (2%) 20 MG/1 ML VIAL 5 ML ONE (14:14)
[2021-10-03] MEDS ORDERED: WATER FOR IRRIG STERILE 2000 ML IR ONE (14:16)
[2021-10-03] MEDS ORDERED: IOHEXOL 300 MG/ML 50ML IV ONE (14:16)
[2021-10-03] MEDS ORDERED: WATER FOR IRRIG STERILE 1,500 ML BOTTLE IR ONE (14:16)
--- NOTE | 2021-10-03 14:24 | Post Operative Note ---
Pre-op diagnosis: r hydro Post-op diagnosis: same Findings: r hydro Procedure: cysto rpg c ureteroscopy Anesthesia: GETA Surgeon: NIC KENNY Estimated blood loss: none Pathology: none Condition: stable Disposition: PACU
--- NOTE | 2021-10-03 14:25 | Discharge Summary ---
Short Stay Discharge Plan Activity: up only with assistance, other Weight Bearing Status: Non-Weight Bearing Diet: low fat, low cholesterol, low salt Special Instructions: other (inc fluids ) Durable Medical Equipment Needed Upon Discharge: other (clayton ) Follow up with: BASIA MELO MD [Primary Care Provider] - 7 Days NIC KENNY MD [Staff Physician] - 14 Days
[2021-10-03] MEDS: HYDROmorphone 1 MG/1 ML INJ IV PRN ×2 (15:27→15:37)
--- NOTE | 2021-10-03 16:27 | Fluoroscopy Report ---
FL RETROGRADE UROGRAPHY INDICATION / CLINICAL INFORMATION: HEMATURIA.. COMPARISON: None available. FINDINGS: Retrograde ureterography. Fluoroscopy time: 1.25 mm. Fluoroscopic images: 3. Signer Name: Jaime Pabon MD Signed: 10/03/2021 4:23 PM Workstation Name: [id number]
[2021-10-03 17:21] VITALS: BP 118/52
--- NOTE | 2021-10-03 19:48 | Operative Report ---
DATE OF SURGERY: 10/03/2021 PREOPERATIVE DIAGNOSES: Neurogenic bladder; huge dilated bladder neck, you can put almost a whole finger into the bladder. POSTOPERATIVE DIAGNOSES: Neurogenic bladder; huge dilated bladder neck, you can put almost a whole finger into the bladder; chronic indwelling catheter and some mild right hydronephrosis; previous sepsis. PROCEDURES: Cystoscopy, right lower ureteroscopy retrograde and removal of double-J stent. SURGEON: Luis Zuleta MD. ANESTHESIA: General. FINDINGS: This is a woman with a neurogenic bladder, incontinence, chronic indwelling catheter, who had a couple episodes of sepsis. I suspect she has some reflux as well and bladder spasm with a wide open bladder neck. There were no stones seen. DESCRIPTION OF PROCEDURE: The patient was brought to the operating room and placed on the operating table with much difficulty, barely able to spread her legs. We were able to get the stent out and a wire up the ureter. A flexible scope went to the mid ureter and the wire was removed. There was no stone, no obstruction. A retrograde showed a delicate collecting system. The patient tolerated the procedure well. We did not want to do much manipulation. A 22 three-way catheter was placed. We will follow up with a cystogram at a later date. TID: [id number] RECEIPT: [id number] ARUN/YSABEL
--- NOTE | 2021-10-03 19:53 | Post Anesthesia Evaluation ---
- Post Anesthesia Evaluation Patient Participated: Yes Airway Patent: Yes Stable Respiratory Function: Yes Nausea/Vomiting: No Temp > 96.8F: Yes Pain Manageable: Yes Adequeate Hydration: Yes Anesthesia Complications: No Block Receding Appropriately: Not Applicable Patient on Ventilator: No
== END 2021-10-03 17:05 | disposition home or self-care (01) ==
LOC: OR 11:35
PROVIDERS: ATTEND Urology
DX: N31.8 Other neuromuscular dysfunction of bladder (principal); N13.39 Other hydronephrosis; R31.9 Hematuria, unspecified; I10 Essential (primary) hypertension; E11.9 Type 2 diabetes mellitus without complications; E78.00 Pure hypercholesterolemia, unspecified; J44.9 Chronic obstructive pulmonary disease, unspecified; E66.9 Obesity, unspecified; F32.9 Major depressive disorder, single episode, unspecified; F41.9 Anxiety disorder, unspecified; D64.9 Anemia, unspecified; Z91.81 History of falling; Z88.0 Allergy status to penicillin; Z88.2 Allergy status to sulfonamides; Z79.899 Other long term (current) drug therapy; Z79.82 Long term (current) use of aspirin; Z87.891 Personal history of nicotine dependence; Z87.01 Personal history of pneumonia (recurrent); Z90.710 Acquired absence of both cervix and uterus; Z87.440 Personal history of urinary (tract) infections; Z98.890 Other specified postprocedural states; Z83.3 Family history of diabetes mellitus; Z68.30 Body mass index [BMI] 30.0-30.9, adult; Z86.73 Personal history of transient ischemic attack (TIA), and cerebral infarction without residual deficits
CPT/HCPCS: 36415; 52310; 74420; 80048; 82962; 85027; C1758; C1769; J1170; J1956; J2250; J2704; J3010; J3490; J7120; Q9967